=== PATIENT | female | born 1980 | race Caucasian/White ===

== ENCOUNTER 2019-06-26 10:51 | Emergency (ER) | payer MEDICAID, SELFPAY ==
[2019-06-26 11:01] VITALS: BP 132/89; PULSE 105; RESP 17; TEMP 36.8; O2SAT 97; BMI 41.9
--- NOTE | 2019-06-26 11:08 | PC.NURSE ---
Patient c/o sore throat with upper respiratory symptoms of cough and congestion.
--- NOTE | 2019-06-26 11:15 | XR_ITS ---
WS: [id number] PORTABLE CHEST HISTORY: cough/congestion COMPARISON: 07/04/2017 Lungs are clear and well expanded. No pleural effusion or pneumothorax. Cardiac size: Normal. Mediastinum/Aorta: Normal mediastinum. No osseous abnormality seen. XR/XR chest 1V portable [id number] IMPRESSION: Unremarkable portable chest.
--- NOTE | 2019-06-26 11:15 | ED_ITS ---
HPI - URI/Sore Throat General: Chief Complaint: General Medical Stated Complaint: Sick Time Seen by Provider: 06/26/19 11:05 Source: patient Mode of arrival: ambulatory Limitations: no limitations History of Present Illness: HPI Narrative: here for dry cough, sinus pain/pressure/congestion, head congestion, sore throat x 2-3 days; daughter being seen here for similar symptoms; reports everyone in the house has been sick ; her main complaint today is the cough; no fevers MD elicited complaint: cough, sore throat, nasal congestion and sinus pain Onset (ago): day(s) Consistency: constant Severity: mild Description of mucous: clear Able to tolerate fluids by mouth: Yes Exacerbating factors: nothing Relieving factors: nothing Context: sick contacts Associated symptoms: Reports no associated symptoms, nasal congestion and sinus pain; Deny abdominal pain, chills, chest pain, diarrhea, ear or mastoid pain, fever(s), headache(s), nausea or vomiting Review of Systems Const: Denies: fever, chills, body aches, fatigue or night sweats Eyes: Denies: change in vision, blurry vision, photophobia, eye discomfort or eye discharge ENMT: Reports: throat pain, painful swallowing, nasal discharge, nasal congestion and facial/sinus pain; Denies: enlarged tonsils, swelling of lips/tongue, oral sores/lesions, ear pain, ear discharge or post nasal drip Card: Denies: chest pain, palpitations, irregular heart rhythm, lightheadedness, syncope or pre-syncope Resp: Reports: non-productive cough and chest congestion; Denies: shortness of breath, productive cough, wheezing, stridor, pain on inspiration, change in phlegm color or coughing up blood GI: Denies: abdominal pain, nausea, vomiting or diarrhea Musc: Denies: neck pain or back pain Skin/Breast: Denies: rash Neuro: Denies: headache All/Imm: Denies: facial swelling or seasonal allergies PFSH ED PFSH: Statuses (acute, chronic, etc) shown below reflect problem list status as previously entered and may not be historically accurate Social History Smoking and tobacco status: former smoker Physical Exam Const: COMMON NORMALS: no apparent distress, oriented x3, alert and well nourished NUTRITIONAL APPEARANCE: obese HENMT: COMMON NORMALS: normocephalic, head/scalp atraumatic, external ears normal, EAC's normal, TM's normal bilaterally and external nose normal HEAD & SCALP: normal to inspection, normocephalic and atraumatic FACE & SINUS: normal facial exam NOSE: external nose normal EXTERNAL EAR: Yes external ears normal EXTERNAL AUDITORY CANAL: EAC's normal TYMPANIC MEMBRANE: TM's normal bilaterally MOUTH: oral and palatal mucosa normal THROAT: posterior oropharynx normal Eye: COMMON NORMALS: PERRL and EOMs intact bilaterally PUPIL: Yes PERRL Neck/C-Spine: COMMON NORMALS: no lymphadenopathy Resp: COMMON NORMALS: normal respiratory effort and clear to auscultation bilaterally AUSCULTATION: clear to auscultation bilaterally Cardio: COMMON NORMALS: regular rate and regular rhythm RATE: regular rate RHYTHM: regular rhythm Neuro: COMMON NORMALS: oriented x3 SENSORIUM/ORIENTATION: Yes alert Skin: COMMON NORMALS: no rashes or lesions noted GENERAL SKIN EXAM: no rashes or lesions noted Course Vital Signs: Vital signs: Vital Signs Temperature 98.3 F 06/26/19 11:01 Pulse Rate 105 H 06/26/19 11:01 Respiratory Rate 17 06/26/19 11:01 Blood Pressure 132/89 06/26/19 11:01 Pulse Oximetry 97 06/26/19 11:01 MDM - URI/Sore Throat Imaging Data^: CXR: Radiologist's impression: [address] [address] XRay Report Signed Patient: Kin Rodriguez Unit #: [id number] : [id number] Age/Sex: 38 / F ADM Date: 06/26/19 Loc: ER Room/Bed: Attending Dr: Ordering Provider/Ordering MD: Aline Cruz Date of Service: 06/26/19 Procedure(s): XR chest 1V portable [id number] Accession Number(s): [id number] Report Number: [id number] WS: [id number] PORTABLE CHEST HISTORY: cough/congestion COMPARISON: 07/04/2017 Lungs are clear and well expanded. No pleural effusion or pneumothorax. Cardiac size: Normal. Mediastinum/Aorta: Normal mediastinum. No osseous abnormality seen. XR/XR chest 1V portable [id number] IMPRESSION: Unremarkable portable chest. Dictated By: Radha Salinas DO Signed By: Radha Salinas DO Signed Date/Time: 06/26/19 1133 DD/ 1133 Discharge Plan Discharge Patient Disposition: Home, Self-Care Clinical Impression: Viral upper respiratory illness Condition: Stable Prescriptions: No Action venlafaxine 75 mg capsule,extended release 24hr 75 mg PO DAILY RF: 0 venlafaxine 150 mg capsule,extended release 24hr 150 mg PO DAILY RF: 0 pantoprazole 40 mg tablet,delayed release (DR/EC) 40 mg PO DAILY RF: 0 buspirone 10 mg tablet 10 mg PO TID RF: 0 Discharge Orders: Discharge Order (Routine); Ordered 06/26/19 Ordered By: Aline Cruz Referrals: Marla Daily FNP-C [Primary Care Provider] - Discharge Diet: Usual diet Discharge Activity: Increase activity as tolerated Activity Restrictions/Additional Instructions: Follow up with primary care in a week for continued symptoms. Coding Level of Care Code ED Pipeline Superintendent Division for Winifred Garcia
[2019-06-26 13:00] VITALS: BP 140/85; PULSE 90; RESP 14; O2SAT 96
== END 2019-06-26 13:01 | disposition home or self-care (01) ==
PROVIDERS: Emergency Provider Physician Assistant; Family Provider Nurse Practitioner Family; PCP Nurse Practitioner Family
DX: J06.9 Acute upper respiratory infection, unspecified (principal); Z87.891 Personal history of nicotine dependence
CPT/HCPCS: 71045; 99281

== ENCOUNTER 2019-07-15 10:54 | Emergency (ER) | payer MEDICAID, SELFPAY | END 2019-07-15 11:44 | disposition left against medical advice (07) | LOC: ER 14:33 | PROVIDERS: Emergency Provider Physician Assistant; Family Provider Nurse Practitioner Family; PCP Nurse Practitioner Family | DX: Z53.21 Procedure and treatment not carried out due to patient leaving prior to being seen by health care provider (principal) | CPT/HCPCS: 99281 ==

== ENCOUNTER → 2019-11-04 12:10 | Outpatient (BNVA) | payer MEDICAID, SELFPAY | PROVIDERS: Family Provider Nurse Practitioner Family; PCP Nurse Practitioner Family; Referring Provider Family Medicine; Visit Provider Nurse Practitioner | DX: Z11.3 Encounter for screening for infections with a predominantly sexual mode of transmission (principal); E66.01 Morbid (severe) obesity due to excess calories; N89.8 Other specified noninflammatory disorders of vagina; N91.2 Amenorrhea, unspecified; Z72.53 High risk bisexual behavior | CPT/HCPCS: 81025; 86592; 87070; 87077; 87186; 87491; 87591; 87661; 87806 ==

== ENCOUNTER → 2019-12-26 09:22 | Day surgery (SDC) | payer MEDICAID, SELFPAY ==
[2019-12-25 18:58] VITALS: BMI 40.3
== END ==
PROVIDERS: PCP Nurse Practitioner Family; Visit Provider Internal Medicine
DX: Z53.9 Procedure and treatment not carried out, unspecified reason (principal)
CPT/HCPCS: J0171

== ENCOUNTER → 2019-12-31 14:01 | Outpatient (BNVA) | payer MEDICAID, SELFPAY | PROVIDERS: PCP Nurse Practitioner Family; Visit Provider Nurse Practitioner Family | DX: Z11.3 Encounter for screening for infections with a predominantly sexual mode of transmission (principal); R81 Glycosuria; A59.01 Trichomonal vulvovaginitis; A59.9 Trichomoniasis, unspecified; J02.9 Acute pharyngitis, unspecified; Z11.59 Encounter for screening for other viral diseases | CPT/HCPCS: 81003; 87070; 87491; 87591; 87635; 87661; 87880 ==

== ENCOUNTER → 2020-01-20 11:27 | Outpatient (BNVA) | payer MEDICAID, SELFPAY | PROVIDERS: PCP Nurse Practitioner Family; Visit Provider Nurse Practitioner | DX: R34 Anuria and oliguria (principal) | CPT/HCPCS: 81000 ==

== ENCOUNTER 2020-01-23 14:23 | Outpatient (CLI) | payer MEDICAID, SELFPAY ==
[2020-01-23 14:49] LABS: Basophils # 0.1 10^3/uL (0.0-0.1); Basophils % 0.7 %; Eosinophils # 0.1 10^3/uL (0.0-0.8); Eosinophils % 1.4 %; Hematocrit 39.8 % (37.0-47.0); Hemoglobin 12.3 g/dL (11.5-15.3); Lymphocytes # 2.6 10^3/uL (0.8-4.8); Mean Corpuscular HGB Conc 30.9 g/dL (30.0-36.0); Mean Corpuscular Hemoglobin 28.4 pg (28.0-34.0); Mean Corpuscular Volume 91.9 fL (81-99); Monocytes # 0.5 10^3/uL (0.2-0.9); Monocytes % 4.6 %; Neutrophils # 6.72 10^3/uL (1.8-7.7); Neutrophils % 66.6 %; Nucleated Red Blood Cells % 0 %; Platelet Count 238 10^3/cmm (130-400); Red Blood Count 4.33 10^6/uL (4.1-5.3); Red Cell Distribution Width 13.2 % (12.1-15.1); White Blood Count 10.1 10^3/uL (4.0-10.0)
[2020-01-23 14:58] LABS: Alanine Aminotransferase 25 U/L (0-33); Albumin Level 4.2 g/dL (3.5-5.2); Alkaline Phosphatase 84 IU/L (35-105); Aspartate Amino Transferase 21 U/L (0-32); Blood Urea Nitrogen 9 mg/dL (6-20); Calcium 9.3 mg/dL (8.5-10.5); Carbon Dioxide 26 mmol/L (22-29); Chloride 100 mmol/L (98-107); Globulin 2.4 g/dL (1.3-4.6); Glomerular Filtration Rate 79.9 mL/min (90-130); Glucose 171 mg/dL (65-115); Osmolality Calculated 284 mOsm/kg (285-295); Sodium 137 mmol/L (136-145); Total Bilirubin 0.2 mg/dL (0.15-1.2); Total Protein 6.6 g/dL (6.6-8.7)
== END 2020-01-23 14:24 | disposition home or self-care (01) ==
LOC: LAB 14:26
PROVIDERS: PCP Nurse Practitioner Family; Visit Provider Nurse Practitioner
DX: R34 Anuria and oliguria (principal)
CPT/HCPCS: 36415; 80053; 85025

== ENCOUNTER 2020-02-03 11:40 | Outpatient (CLI) | payer MEDICAID, SELFPAY ==
[2020-02-03 12:16] LABS: Estmated Average Glucose 154
== END 2020-02-03 11:41 | disposition home or self-care (01) ==
LOC: LAB 11:45
PROVIDERS: PCP Nurse Practitioner Family; Visit Provider Nurse Practitioner
DX: R73.9 Hyperglycemia, unspecified (principal)
CPT/HCPCS: 83036

== ENCOUNTER → 2020-02-11 08:28 | Outpatient (BNVA) | payer MEDICAID, SELFPAY | PROVIDERS: PCP Nurse Practitioner Family; Visit Provider Internal Medicine | DX: Z01.812 Encounter for preprocedural laboratory examination (principal) | CPT/HCPCS: 87635 ==

== ENCOUNTER 2020-02-13 08:12 | Day surgery (SDC) | payer MEDICAID, SELFPAY ==
[2020-02-11 12:59] VITALS: BMI 45.1
[2020-02-13 08:34] VITALS: BP 128/80; PULSE 80; RESP 18; TEMP 36.2; O2SAT 95
[2020-02-13] MEDS: sodium chloride 0.9% 1,000 ML 30 ML IV (08:42)
--- NOTE | 2020-02-13 08:44 | ANES.PREANE2 ---
Pre-Anesthetic Assessment Pre-Anesthetic Assessment: Height/Weight: Height 1.68 m Weight 127.006 kg Temp Pulse Resp BP Pulse Ox 97.2 F L 80 18 128/80 95 02/13/20 08:34 02/13/20 08:34 02/13/20 08:34 02/13/20 08:34 02/13/20 08:34 Preop Diagnosis: Diarrhea Proposed Procedure: Operation Date: 02/13/20 09:00 Proposed Procedures p EGD 79877 R10.13(Not Applicable) - Florian Bernardo MD Was Beta Tayo taken within 24 hours: N/A Last intake: Intake Last Liquid Date 02/12/20 Last Liquid Time 08:00 Last Solid Date 02/12/20 Last Solid Time 20:00 Last Intake: 00:00 Social: Social History: No alcohol and No tobacco Exam: Pre-Anes Outpt Exam: alert, oriented x 3 and clear to auscultation bilaterally Airway: Submandibular: WNL Cervical ROM: WNL MP: 1 Pulmonary: Pulmonary: Cough (persistant cough for two months) CV/HEM: CV/HEM: None reported : Comments: retaining water, just started lasix Hepatic: Hepatic: None reported GI: GI: GERD (controlled with meds) Metabolic: Metabolic: DM and Morbid obesity Musc/skel: Musc/skel: None reported Neuropsych: Neuropsych: Anxiety and Depression Anesthetic Plan: ASA status: 2 Anesthesia: Anesthesia Evaluation and MAC Meds/Allergies Current Medications: Current Medications Generic Name Dose Route Start Last Admin Trade Name Freq PRN Reason Stop Dose Admin Sodium Chloride 1,000 mls @ 30 ml s/hr 02/13/20 08:15 02/13/20 08:42 Sodium Chloride 0.9% IV 02/14/20 08:14 30 mls/hr .Q24H MARY Administration PFSH Anesthesia PFSH: Medical History (Updated 02/10/20 @ 15:36 by SUSANA Ferrer) Diabetes type 2, uncontrolled Morbid obesity due to excess calories Surgical History Ectopic Lost left tube has right tube Family History Other Cancer Chronic kidney disease (CKD) Clotting disorder Diabetes Hypertension Stroke Suicide Denies family history of CAD (coronary artery disease) Social History (Updated 02/10/20 @ 15:04 by JENNY Welch) Smoking and tobacco status: former smoker Second hand smoke exposure: No Smoking risk assessment/counseling performed?: No Alcohol intake: current Alcohol intake frequency: holidays/special occasions only Desire information about alcohol rehabilitation?: No Counseling given: No Desire information about substance/drug rehabilitation?: No Counseling given: No Adopted: No Caregiver/support person: No Lives independently: Yes Housing: House Marital status: Single Number of children: 3 Highest education level completed: High School Graduate service: No Current occupational status: employed 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
[2020-02-13 08:45] LABS: Glucose Point of Care 160 mg/dL (70-110)
[2020-02-13 09:07] VITALS: PULSE 70; RESP 18; O2SAT 97
[2020-02-13] MEDS: ipratropium 0.5 mg/2.5 mL Neb INHALATION (09:10)
--- NOTE | 2020-02-13 09:18 | W.PM.OPSFHP ---
Same Day Surgery H&P Indication for Procedure/HPI DATE OF PROCEDURE: February 13, 2020 CHIEF COMPLAINT/INDICATIONFOR SURGICAL PROCEDURE: Epigastric pain PREOP DIAGNOSIS: Diarrhea PLANNED PROCEDRUE: Operation Date: 02/13/20 09:00 Proposed Procedures p EGD 21457 R10.13(Not Applicable) - Florian Bernardo MD Medications/Allergies* Allergies/Adverse Reactions Allergy/AdvReac Type Severity Reaction Status Date / Time ketorolac [From Toradol] Allergy ADR-Shakine Verified 02/13/20 08:28 ss sulfamethoxazole Allergy ALGY-Rash Verified 02/13/20 08:28 [From Bactrim] trimethoprim [From Bactrim] Allergy ALGY-Rash Verified 02/13/20 08:28 Current Medications: Generic Name Dose Route Start Last Admin Trade Name Freq PRN Reason Stop Dose Admin Sodium Chloride 1,000 mls @ 30 mls/hr 02/13/20 08:15 02/13/20 08:42 Sodium Chloride 0.9% IV 02/14/20 08:14 30 mls/hr .Q24H MARY Administration Pertinent History/Comorbid Conditions* Medical History (Updated 02/10/20 @ 15:36 by SUSANA Ferrer) Diabetes type 2, uncontrolled Morbid obesity due to excess calories Surgical History (Updated 10/31/19 @ 12:48 by SUSANA Ferrer) Ectopic Lost left tube has right tube Family History (Updated 10/31/19 @ 11:27 by Cheyenne Gardner LPN) Diabetes Clotting disorder Chronic kidney disease (CKD) Suicide Cancer Hypertension Stroke Denies family history of CAD (coronary artery disease) Social History Smoking and tobacco status: former smoker Second hand smoke exposure: No Smoking risk assessment/counseling performed?: No Alcohol intake: current Alcohol intake frequency: holidays/special occasions only Desire information about alcohol rehabilitation?: No Counseling given: No Desire information about substance/drug rehabilitation?: No Counseling given: No Adopted: No Caregiver/support person: No Lives independently: Yes Housing: House Marital status: Single Number of children: 3 Highest education level completed: High School Graduate service: No Current occupational status: employed 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
[2020-02-13 09:30] VITALS: BP 120/65; PULSE 97; RESP 18; TEMP 36.7; O2SAT 96
--- NOTE | 2020-02-13 09:35 | ANE.PACU2 ---
Inpatient post-anesthesia follow up: Airway intact: Yes Vital signs: Temperature 97.2 F Pulse Rate 70 Respiratory Rate 18 Blood Pressure 128/80 Pulse Oximetry 97 Oxygen Delivery Me thod Room Air Oxygen Flow Rate Fraction of Inspir ed Oxygen Hydration adequate: Yes Nausea and vomiting: Yes Pain level: 1 Mental status: Baseline
[2020-02-13 09:45] VITALS: BP 126/80; PULSE 80; RESP 18; O2SAT 97
== END 2020-02-13 09:53 | disposition home or self-care (01) ==
PROVIDERS: PCP Nurse Practitioner; Visit Provider Internal Medicine
PROC: 0DJ08ZZ Inspection of Upper Intestinal Tract, Via Natural or Artificial Opening Endoscopic (ICD-10-PCS; CPT 43235; principal; 2020-02-13 09:00)
DX: R10.13 Epigastric pain (principal); R19.7 Diarrhea, unspecified; K21.0 Gastro-esophageal reflux disease with esophagitis; E66.01 Morbid (severe) obesity due to excess calories; Z68.42 Body mass index [BMI] 45.0-49.9, adult; E11.9 Type 2 diabetes mellitus without complications; Z82.49 Family history of ischemic heart disease and other diseases of the circulatory system; Z83.3 Family history of diabetes mellitus; Z82.3 Family history of stroke; Z87.891 Personal history of nicotine dependence
CPT/HCPCS: 12345; 36416; 43235; 82962; 94640; J2704; J7030

== ENCOUNTER → 2020-03-02 07:45 | Outpatient (BNVA) | payer MEDICAID, SELFPAY | PROVIDERS: PCP Nurse Practitioner; Visit Provider Nurse Practitioner Psychiatric/Mental Health | DX: F33.2 Major depressive disorder, recurrent severe without psychotic features (principal); F41.1 Generalized anxiety disorder; Z87.820 Personal history of traumatic brain injury | CPT/HCPCS: 99214 ==

== ENCOUNTER → 2020-03-30 07:39 | Outpatient (BNVA) | payer MEDICAID, SELFPAY | PROVIDERS: PCP Nurse Practitioner; Visit Provider Nurse Practitioner Psychiatric/Mental Health | DX: F33.2 Major depressive disorder, recurrent severe without psychotic features (principal); F41.1 Generalized anxiety disorder; Z87.820 Personal history of traumatic brain injury | CPT/HCPCS: 99214 ==

== ENCOUNTER 2020-04-13 09:58 | Outpatient (CLI) | payer MEDICAID, SELFPAY ==
--- NOTE | 2020-04-13 10:00 | NM_ITS ---
WS: [id number] NUCLEAR MEDICINE HIDA SCAN CLINICAL INFORMATION: right upper quadrant pain TECHNIQUE: Following intravenous administration of 7.8 mCi of technetium 99m mebrofenin, images of th e abdomen were obtained over the course of 60 minutes. Next, gallbladder ejection fraction was determ ined by obtaining preprandial and one-hour postprandial images of the gallbladder following oral malik stion of Ensure. COMPARISON: None. FINDINGS: Diffuse hepatic uptake at 5 minutes. Gallbladder is visualized by 10 minutes. No evidence of acute ch olecystitis. Normal common bile duct and small bowel activity. No evidence of acute cholecystitis or choledocholithiasis. Normal gallbladder ejection fraction 80% within normal limits. No evidence of chronic cholecystitis. NM/NM hepatobiliary w phar* [id number] IMPRESSION: 1. No evidence of acute or chronic cholecystitis. 2. Normal gallbladder ejection fraction 80% within normal limits.
== END 2020-04-13 09:59 | disposition home or self-care (01) ==
PROVIDERS: PCP Nurse Practitioner; Visit Provider Surgery
DX: R10.13 Epigastric pain (principal)
CPT/HCPCS: 78227; A9537

== ENCOUNTER → 2020-04-15 15:43 | Outpatient (BNVA) | payer MEDICAID, SELFPAY | PROVIDERS: PCP Nurse Practitioner; Visit Provider Nurse Practitioner Women's Health | DX: Z32.01 Encounter for pregnancy test, result positive (principal) | CPT/HCPCS: 84702 ==

== ENCOUNTER → 2020-04-19 13:59 | Outpatient (BNVA) | payer MEDICAID, SELFPAY | PROVIDERS: PCP Nurse Practitioner; Visit Provider Emergency Medicine | DX: R39.9 Unspecified symptoms and signs involving the genitourinary system (principal); Z20.2 Contact with and (suspected) exposure to infections with a predominantly sexual mode of transmission | CPT/HCPCS: 81000; 87086; 87491; 87591; 87661 ==

== ENCOUNTER 2020-04-24 21:18 | Emergency (ER) | payer MEDICAID, SELFPAY ==
[2020-04-24 21:23] VITALS: BP 127/80; PULSE 107; RESP 18; TEMP 36.8; O2SAT 96; BMI 43.5
--- NOTE | 2020-04-24 21:39 | ED_ITS ---
HPI - Abdominal Pain General: Chief Complaint: Abdominal Pain Stated Complaint: RUQ PAIN Time Seen by Provider: 04/24/20 21:39 Source: patient Mode of arrival: ambulatory Limitations: no limitations History of Present Illness: HPI narrative: 39-year-old female comes in with right-sided abdominal pain. Patient states that she has had increased pain and discomfort starting this evening. Patient reports movement makes it worse. Patient does have some nausea and diarrhea. Patient believes that she may have some difficulty with her gallbladder and is awaiting further testing. Patient appears well. Patient appears in mild pain. Associated Symptoms: Reports diarrhea and nausea Related Data: Date of Last Menstrual Period: 02/25/20 Review of Systems General: Reports: 10 or more systems reviewed and unremarkable except in HPI and below GI: Reports: abdominal pain, nausea and diarrhea PFS ED PFSH: Medical History (Updated 04/24/20 @ 23:43 by ELY Bond) Diabetes type 2, uncontrolled Generalized anxiety disorder GERD (gastroesophageal reflux disease) Major depressive disorder, recurrent severe without psychotic features Personal history of traumatic brain injury Surgical History Ectopic Lost left tube has right tube Family History Other Cancer Chronic kidney disease (CKD) Clotting disorder Diabetes Hypertension Stroke Suicide Denies family history of CAD (coronary artery disease) Social History Smoking and tobacco status: former smoker Second hand smoke exposure: No Smoking risk assessment/counseling performed?: No Alcohol intake: current Alcohol intake frequency: holidays/special occasions only Desire information about alcohol rehabilitation?: No Counseling given: No Desire information about substance/drug rehabilitation?: No Counseling given: No Adopted: No Caregiver/support person: No Lives independently: Yes Housing: House Marital status: Single Number of children: 3 Highest education level completed: High School Graduate service: No Current occupational status: employed 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 Pets and animals: Yes History of recent travel: No Current gender identity: Female Female Reproductive History: Date of last menstrual period: 02/25/20 Physical Exam Const: COMMON NORMALS: no acute distress and patient oriented x3 GENERAL APPEARANCE: cooperative HENMT: COMMON NORMALS: normocephalic and Normal external nose present HEAD & SCALP: normal to inspection and normocephalic NOSE: Normal external nose present MOUTH: Normal oral and palatal mucosa present Eye: GENERAL EYE: appearance normal, both eyes and all related structures Neck/C-Spine: COMMON NORMALS: full ROM Chest: COMMONS NORMALS: normal inspection of the chest Resp: COMMON NORMALS: normal respiratory effort EFFORT & INSPECTION: Yes able to speak in complete sentences Cardio: COMMON NORMALS: regular rate and regular rhythm RATE: regular rate RHYTHM: regular rhythm GI: COMMON NORMALS: Soft to palpation PALPATION: Yes Soft to palpation and Yes Tenderness to palpation present (GI) (Right flank muscle tenderness.) : COMMON NORMALS: Yes no CVA tenderness BLADDER/KIDNEY EXAM: Yes no CVA tenderness Back/Pelvis: COMMON NORMALS: no CVA tenderness and thoracic and lumbar spine normal to inspection Extremity: COMMON NORMALS: normal to inspection Neuro: COMMON NORMALS: patient oriented x3 and moves all extremities Psych: COMMON NORMALS: mental status grossly normal and cooperative Skin: COMMON NORMALS: no rashes or lesions noted GENERAL SKIN EXAM: no rashes or lesions noted Course Vital Signs: Vital signs: Vital Signs Temperature 98.2 F 04/24/20 21:23 Pulse Rate 102 H 04/24/20 23:00 Respiratory Rate 22 H 04/24/20 23:00 Blood Pressure 124/80 04/24/20 23:00 Pulse Oximetry 93 04/24/20 23:00 MDM - Abdominal Pain MDM Narrative: Medical decision making narrative: Patient came in today for complaints of right flank pain. On exam patient has muscle tenderness in the right paraspinous flank area. Abdomen soft nontender. Bowel sounds are present. Differential diagnosis includes but not limited to renal calculi, cholecystitis, pancreatitis, myofascial strain. Laboratory values were remarkable for 14,000 white count. Liver enzymes are normal. CT scan of the abdomen pelvis noted no significant abnormality. Patient has no signs of acute abdomen. Reviewed exam with patient recommended follow-up with primary care. For further evaluation. Saeed need to return to the ER for high fever or blood in vomit or stool. Patient reported understanding. Lab Data: Labs: Lab Results 04/24/20 04/24/20 04/24/20 Range/Units 21:45 21:45 21:45 WBC 14.5 H (4.0-10.0) 10^3/ uL RBC 4.68 (4.1-5.3) 10^6/u L Hgb 13.4 (11.5-15.3) g/dL Hct 41.6 (37.0-47.0) % MCV 88.9 (81-99) fL MCH 28.6 (28.0-34.0) pg MCHC 32.2 (30.0-36.0) g/dL RDW 13.0 (12.1-15.1) % Plt Count 280 (130-400) 10^3/c mm MPV 11.5 H (7.4-10.4) fL Neut % (Auto) 74.4 % Lymph % (Auto) 19.2 % Culberson % (Auto) 3.5 % Eos % (Auto) 1.0 % Baso % (Auto) 0.7 % Neut # (Auto) 10.78 H (1.8-7.7) 10^3/u L Lymph # (Auto) 2.8 (0.8-4.8) 10^3/u L Culberson # (Auto) 0.5 (0.2-0.9) 10^3/u L Eos # (Auto) 0.2 (0.0-0.8) 10^3/u L Baso # (Auto) 0.1 (0.0-0.1) 10^3/u L Nucleated RBC % (a uto) 0 % Nucleated RBCs # 0.0 /100WBC Sodium 138 (136-145) mmol/L Potassium 3.6 (3.5-5.1) mmol/L Chloride 99 (98-107) mmol/L Carbon Dioxide 26 (22-29) mmol/L Anion Gap 16.6 (5-19) BUN 9 (6-20) mg/dL Creatinine 0.8 (0.5-0.9) mg/dL GFR Calculation 79.9 L (90-130) mL/min Glucose 209 H (65-115) mg/dL Calculated Osmolal ity 291 (285-295) mOsm/k g Calcium 9.4 (8.5-10.5) mg/dL Total Bilirubin 0.3 (0.15-1.2) mg/dL AST 19 (0-32) U/L ALT 21 (0-33) U/L Alkaline Phosphata se 92 (35-105) IU/L Total Protein 7.1 (6.6-8.7) g/dL Albumin 4.4 (3.5-5.2) g/dL Globulin 2.7 (1.3-4.6) g/dL Lipase 38 (13-60) U/L HCG, Qual Negative (Negative) Urine Color (Yellow) Urine Appearance (CLEAR) Urine pH (5-7) Ur Specific Gravit y (1.005-1.030) Urine Protein (Negative) Urine Glucose (UA) (Normal) Urine Ketones (Negative) Urine Blood (Negative) Urine Nitrate (Negative) Urine Bilirubin (Negative) Urine Urobilinogen (Negative) mg/dL Ur Leukocyte Johanny ase (Negative) Urine RBC (0-2) /hpf Urine WBC (0-5) /hpf Ur Squamous Epith Cells (0-5) /hpf Amorphous Sediment Urine Bacteria (NONE) /hpf 04/24/20 Range/Units 22:56 WBC (4.0-10.0) 10^3/ uL RBC (4.1-5.3) 10^6/u L Hgb (11.5-15.3) g/dL Hct (37.0-47.0) % MCV (81-99) fL MCH (28.0-34.0) pg MCHC (30.0-36.0) g/dL RDW (12.1-15.1) % Plt Count (130-400) 10^3/c mm MPV (7.4-10.4) fL Neut % (Auto) % Lymph % (Auto) % Culberson % (Auto) % Eos % (Auto) % Baso % (Auto) % Neut # (Auto) (1.8-7.7) 10^3/u L Lymph # (Auto) (0.8-4.8) 10^3/u L Culberson # (Auto) (0.2-0.9) 10^3/u L Eos # (Auto) (0.0-0.8) 10^3/u L Baso # (Auto) (0.0-0.1) 10^3/u L Nucleated RBC % (a uto) % Nucleated RBCs # /100WBC Sodium (136-145) mmol/L Potassium (3.5-5.1) mmol/L Chloride (98-107) mmol/L Carbon Dioxide (22-29) mmol/L Anion Gap (5-19) BUN (6-20) mg/dL Creatinine (0.5-0.9) mg/dL GFR Calculation (90-130) mL/min Glucose (65-115) mg/dL Calculated Osmolal ity (285-295) mOsm/k g Calcium (8.5-10.5) mg/dL Total Bilirubin (0.15-1.2) mg/dL AST (0-32) U/L ALT (0-33) U/L Alkaline Phosphata se (35-105) IU/L Total Protein (6.6-8.7) g/dL Albumin (3.5-5.2) g/dL Globulin (1.3-4.6) g/dL Lipase (13-60) U/L HCG, Qual (Negative) Urine Color Yellow (Yellow) Urine Appearance Sl hazy (CLEAR) Urine pH 5 (5-7) Ur Specific Gravit y 1.010 (1.005-1.030) Urine Protein Neg (Negative) Urine Glucose (UA) Norm (Normal) Urine Ketones Negative (Negative) Urine Blood Neg (Negative) Urine Nitrate Negative (Negative) Urine Bilirubin Neg (Negative) Urine Urobilinogen Norm (Negative) mg/dL Ur Leukocyte Johanny ase Negative (Negative) Urine RBC 0-4 H (0-2) /hpf Urine WBC 0-4 H (0-5) /hpf Ur Squamous Epith Cells 55-80 H (0-5) /hpf Amorphous Sediment Not Reportable Urine Bacteria Trace (NONE) /hpf Discharge Plan Discharge Patient Disposition: Home Clinical Impression: Abdominal pain Qualifiers: Abdominal location: unspecified location Qualified Code(s): R10.9 - Unspecified abdominal pain Condition: Stable Prescriptions: No Action (DME) pen needle, diabetic 33 gauge x 5/32 needle See Rx Instructions .ROUTE .MEDSUPPLY Qty: 100 RF: 0 Victoza 2-Vincenzo 0.6 mg/0.1 mL (18 mg/3 mL) pen injector 0.6 mg SUBCUT DAILY Qty: 6 RF: 0 furosemide [Lasix] 20 mg tablet 20 mg PO DAILY Qty: 30 RF: 2 potassium citrate 10 mEq (1,080 mg) tablet extended release 10 meq PO DAILY Qty: 30 RF: 2 pantoprazole 40 mg tablet,delayed release (DR/EC) 40 mg PO DAILY Qty: 90 RF: 3 aripiprazole [Abilify] 2 mg tablet 2 mg PO DAILY Qty: 30 RF: 1 ampicillin 500 mg capsule 500 mg PO TID Qty: 21 RF: 0 Discharge Orders: Discharge Order (Routine); Ordered 04/24/20 Ordered By: Bill Iverson Referrals: Lala Guillen, [employer]TO[employer] LABORATORY MANAGER-C [Primary Care Provider] - Discharge Diet: Usual diet Discharge Activity: Increase activity as tolerated Patient Instructions: Abdominal Pain (ED) Activity Restrictions/Additional Instructions: Home and rest. Drink plenty of fluids. Follow-up with primary care for further treatment and evaluation. Return to the emergency department for high fever, blood in vomit or stool. Coding Level of Care Code ED Hydrologic Modeler for Winifred Garcia Exam Comprehensive
[2020-04-24] MEDS: ondansetron 2 mg/ML SDV 2 mL 4 MG IVP (21:56)
[2020-04-24] MEDS: sodium chloride 0.9% 500 ML 999 ML IV (22:00)
[2020-04-24 22:01] VITALS: BP 145/85; PULSE 107; RESP 16; O2SAT 95
[2020-04-24 22:03] LABS: Basophils # 0.1 10^3/uL (0.0-0.1); Basophils % 0.7 %; Eosinophils # 0.2 10^3/uL (0.0-0.8); Hematocrit 41.6 % (37.0-47.0); Hemoglobin 13.4 g/dL (11.5-15.3); Lymphocytes # 2.8 10^3/uL (0.8-4.8); Lymphocytes % 19.2 %; Mean Corpuscular HGB Conc 32.2 g/dL (30.0-36.0); Mean Corpuscular Hemoglobin 28.6 pg (28.0-34.0); Mean Corpuscular Volume 88.9 fL (81-99); Mean Platelet Volume 11.5 fL (7.4-10.4); Monocytes # 0.5 10^3/uL (0.2-0.9); Monocytes % 3.5 %; Neutrophils # 10.78 10^3/uL (1.8-7.7); Neutrophils % 74.4 %; Nucleated Red Blood Cells % 0 %; Platelet Count 280 10^3/cmm (130-400); Red Blood Count 4.68 10^6/uL (4.1-5.3); White Blood Count 14.5 10^3/uL (4.0-10.0)
--- NOTE | 2020-04-24 22:18 | CTR_ITS ---
PROCEDURE INFORMATION: Exam: CT Abdomen And Pelvis With Contrast Exam date and time: 04/24/2020 10:40 PM Age: 39 years old Clinical indication: Abdominal pain; Additional info: Right abd pain, diarrhea TECHNIQUE: Imaging protocol: Computed tomography of the abdomen and pelvis with intravenous contrast. Radiation optimization: All CT scans at this facility use at least one of these dose optimization techniques: automated exposure control; mA and/or kV adjustment per patient size (includes targeted exams where dose is matched to clinical indication); or iterative reconstruction. Contrast material: OMNI 300; Contrast volume: 95 ml; Contrast route: INTRAVENOUS (IV); COMPARISON: CT abdomen pelvis w con* [id number] 04/13/2019 8:17 PM RADIATION DOSE METRICS: Total DLP (mGy-cm): 1972.46 FINDINGS: Lungs: The lung bases are clear. Mediastinal space: Small, 2 cm hiatal hernia. Liver: There is fatty infiltration of the liver. Gallbladder and bile ducts: The gallbladder is partially contracted. No visible gallstones by CT. Ultrasound would be more sensitive for detecting gallstones, if clinically needed. No biliary tree dilation. Pancreas: Unremarkable. Spleen: Unremarkable. Adrenal glands: Unremarkable. Kidneys and ureters: Unremarkable. Stomach and bowel: There are no CT findings to strongly suggest diverticulitis or colitis. Negative CT does not entirely exclude colitis, so follow-up may be helpful, as clinically directed. Appendix: The appendix is identified, and there are no suspicious findings for appendicitis. No pericecal inflammatory changes are seen. Small calcification in the distal appendix is unchanged, possibly a small appendicolith. Intraperitoneal space: No free air, ascites, or bowel distention. Vasculature: No evidence for abdominal aortic aneurysm. Lymph nodes: No retroperitoneal adenopathy. Urinary bladder: Unremarkable as visualized. Reproductive: No definite ovarian/adnexal cyst or mass by CT. Bones/joints: Moderate disc space narrowing at L5-S1, slightly increased in the interval. Soft tissues: Very small umbilical hernia, containing only fat. CT/CT abdomen pelvis w con* [id number] IMPRESSION: 1. No evidence for appendicitis. 2. No visible gallstones by CT. 3. No free air or bowel distention. 4. Small hiatal hernia. 5. Other findings discussed above. Radiation Dose CTDIVOL = (mGy): DLP = 1973.46 (mGy-cm)
[2020-04-24 22:24] LABS: Alanine Aminotransferase 21 U/L (0-33); Albumin Level 4.4 g/dL (3.5-5.2); Alkaline Phosphatase 92 IU/L (35-105); Anion Gap 16.6 (5-19); Aspartate Amino Transferase 19 U/L (0-32); Blood Urea Nitrogen 9 mg/dL (6-20); Calcium 9.4 mg/dL (8.5-10.5); Carbon Dioxide 26 mmol/L (22-29); Chloride 99 mmol/L (98-107); Globulin 2.7 g/dL (1.3-4.6); Glomerular Filtration Rate 79.9 mL/min (90-130); Glucose 209 mg/dL (65-115); Lipase 38 U/L (13-60); Osmolality Calculated 291 mOsm/kg (285-295); Potassium 3.6 mmol/L (3.5-5.1); Sodium 138 mmol/L (136-145); Total Bilirubin 0.3 mg/dL (0.15-1.2); Total Protein 7.1 g/dL (6.6-8.7)
[2020-04-24 22:27] LABS: HCG, Serum Qual Negative (Negative)
[2020-04-24] MEDS: iohexol 300 mg/mL 100 mL Btl IV (22:41)
[2020-04-24 23:00] VITALS: BP 124/80; PULSE 102; RESP 22; O2SAT 93
[2020-04-24 23:17] LABS: Bilirubin Urine Neg (Negative); Blood Urine Neg (Negative); Glucose Urine UA Norm (Normal); Ketones Urine Negative (Negative); Leukocyte Esterase Urine Negative (Negative); Nitrate Urine Negative (Negative); Protein Urine Neg (Negative); Urine Appearance SL Hazy (CLEAR); Urine Color Yellow (Yellow); Urobilinogen Urine Norm (Negative); pH Urine 5 (5-7)
[2020-04-24 23:18] LABS: Add Urine Microscopic? YES
[2020-04-24 23:21] LABS: Add Urine Culture? No; Bacteria Urine TRACE /hpf; RBC Urine 0-4 /hpf (0-2); Squamous Epithelial Cell Urine 55-80 /hpf (0-5); WBC Urine 0-4 /hpf (0-5)
[2020-04-24 23:49] VITALS: BP 116/74; PULSE 101; RESP 16; O2SAT 93
== END 2020-04-24 23:50 | disposition home or self-care (01) ==
PROVIDERS: Emergency Provider Nurse Practitioner Family; PCP Nurse Practitioner
DX: R10.9 Unspecified abdominal pain (principal); E11.9 Type 2 diabetes mellitus without complications; Z87.891 Personal history of nicotine dependence
CPT/HCPCS: 12345; 74177; 80053; 81001; 83690; 84703; 85025; 96374; 96375; 99283; J0131; J2405; J7040; Q9967

== ENCOUNTER → 2020-05-11 07:40 | Outpatient (BNVA) | payer MEDICAID, SELFPAY | PROVIDERS: PCP Nurse Practitioner; Visit Provider Nurse Practitioner Psychiatric/Mental Health | DX: F33.2 Major depressive disorder, recurrent severe without psychotic features (principal); F41.1 Generalized anxiety disorder; Z87.820 Personal history of traumatic brain injury | CPT/HCPCS: 99214 ==

== ENCOUNTER → 2020-08-05 08:10 | Outpatient (BNVA) | payer MEDICAID, SELFPAY | PROVIDERS: PCP Nurse Practitioner; Visit Provider Nurse Practitioner Psychiatric/Mental Health | DX: F41.1 Generalized anxiety disorder (principal); F33.2 Major depressive disorder, recurrent severe without psychotic features; F31.81 Bipolar II disorder; Z87.820 Personal history of traumatic brain injury; Z03.89 Encounter for observation for other suspected diseases and conditions ruled out | CPT/HCPCS: 99214 ==

== ENCOUNTER → 2020-08-16 14:34 | Outpatient (BNVA) | payer MEDICAID, SELFPAY | PROVIDERS: PCP Nurse Practitioner; Visit Provider Nurse Practitioner Psychiatric/Mental Health | DX: Z79.899 Other long term (current) drug therapy (principal); Z03.89 Encounter for observation for other suspected diseases and conditions ruled out | CPT/HCPCS: 80053; 84439; 84443; 84481 ==

== ENCOUNTER → 2020-08-17 08:12 | Outpatient (BNVA) | payer MEDICAID, SELFPAY | PROVIDERS: PCP Nurse Practitioner; Visit Provider Nurse Practitioner Psychiatric/Mental Health | DX: F33.2 Major depressive disorder, recurrent severe without psychotic features (principal); F41.1 Generalized anxiety disorder; Z03.89 Encounter for observation for other suspected diseases and conditions ruled out; Z79.899 Other long term (current) drug therapy; Z87.820 Personal history of traumatic brain injury; F31.81 Bipolar II disorder | CPT/HCPCS: 99214 ==

== ENCOUNTER → 2021-01-10 07:09 | Outpatient (BNVA) | payer MEDICAID, SELFPAY | PROVIDERS: PCP Nurse Practitioner; Visit Provider Nurse Practitioner Psychiatric/Mental Health | DX: F31.81 Bipolar II disorder (principal); F41.1 Generalized anxiety disorder; Z87.820 Personal history of traumatic brain injury; Z79.899 Other long term (current) drug therapy | CPT/HCPCS: 99214 ==

== ENCOUNTER → 2021-01-31 07:12 | Outpatient (BNVA) | payer MEDICAID, SELFPAY | PROVIDERS: PCP Nurse Practitioner; Visit Provider Nurse Practitioner Psychiatric/Mental Health | DX: F31.81 Bipolar II disorder (principal); F41.1 Generalized anxiety disorder; Z87.820 Personal history of traumatic brain injury; Z79.899 Other long term (current) drug therapy | CPT/HCPCS: 99214 ==

== ENCOUNTER 2021-02-19 20:34 | Observation (INO) | payer MEDICAID, SELFPAY ==
[2021-02-19] VITALS (13 sets, daily range): BP systolic 115–142; BP diastolic 67–91; PULSE 82–90; RESP 16–18; TEMP 36.2; O2SAT 96–100; BMI 45.1
--- NOTE | 2021-02-19 21:28 | XRR_ITS ---
PROCEDURE INFORMATION: Exam: XR Chest Exam date and time: 02/19/2021 9:28 PM Age: 40 years old Clinical indication: Sternal or substernal pain; Additional info: Chest pain TECHNIQUE: Imaging protocol: XR of the chest. Views: 1 view. COMPARISON: CR XR chest 1V portable [id number] 06/26/2019 11:26 AM FINDINGS: Lungs: Unremarkable. No consolidation. Pleural spaces: Unremarkable. No pleural effusion. No pneumothorax. Heart/Mediastinum: Unremarkable. No cardiomegaly. Bones/joints: Unremarkable. XR/XR chest 1V portable [id number] IMPRESSION: No acute findings.
--- NOTE | 2021-02-19 21:29 | ECG_ITS ---
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 Measurements Intervals [place] Rate: 80 P: 32 MA: 147 QRS: 54 QRSD: 97 T: 16 QT: 395 QTc: 456 Interpretive Statements SINUS RHYTHM ST DEVIATION AND MODERATE T-WAVE ABNORMALITY, CONSIDER ANTERIOR ISCHEMIA [-0.1+ mV T-WAVE IN V3/V4] No previous ECG available for comparison Electronically Signed On 02-21-2021 19:14:38 CDT by Grace Morris M.D. [id number]
[2021-02-19 21:34] LABS: Basophils # 0.1 10^3/uL (0.0-0.1); Basophils % 0.8 %; Eosinophils # 0.2 10^3/uL (0.0-0.8); Eosinophils % 1.9 %; Hematocrit 42.8 % (37.0-47.0); Hemoglobin 13.2 g/dL (11.5-15.3); Lymphocytes # 2.9 10^3/uL (0.8-4.8); Lymphocytes % 30.1 %; Mean Corpuscular HGB Conc 30.8 g/dL (30.0-36.0); Mean Corpuscular Hemoglobin 29.1 pg (28.0-34.0); Mean Corpuscular Volume 94.5 fl (81-99); Monocytes # 0.5 10^3/uL (0.2-0.9); Monocytes % 4.7 %; Neutrophils % 61.6 %; Nucleated Red Blood Cells % 0 %; Platelet Count 259 10^3/cmm (130-400); Red Blood Count 4.53 10^6/uL (4.1-5.3); Red Cell Distribution Width 13.1 % (12.1-15.1); White Blood Count 9.6 10^3/uL (4.0-10.0)
[2021-02-19] MEDS: aspirin 325 mg Tablet PO (21:42)
[2021-02-19 21:48] LABS: Troponin(5th) Baseline 6 ng/L (0-10)
--- NOTE | 2021-02-19 21:48 | CTR_ITS ---
PROCEDURE INFORMATION: Exam: CTA Chest With Contrast Exam date and time: 02/19/2021 9:48 PM Age: 40 years old Clinical indication: Pain; Left-sided; Patient HX: C/O L sided cp w cough x a couple of days; Additional info: Rule out pe TECHNIQUE: Imaging protocol: Computed tomographic angiography of the chest with contrast. 3D rendering (Not supervised by radiologist): MIP and/or 3D reconstructed images were created by the technologist. Radiation optimization: All CT scans at this facility use at least one of these dose optimization techniques: automated exposure control; mA and/or kV adjustment per patient size (includes targeted exams where dose is matched to clinical indication); or iterative reconstruction. Contrast material: OMNI 350; Contrast volume: 144 ml; Contrast route: INTRAVENOUS (IV); COMPARISON: CR (CHEST, ) 02/19/2021 9:49 PM RADIATION DOSE METRICS: Total DLP (mGy-cm): 1111.92 FINDINGS: Pulmonary arteries: Normal. No pulmonary emboli. Aorta: Unremarkable. No aortic aneurysm. No aortic dissection. Lungs: Unremarkable. No consolidation. No masses. Pleural spaces: Unremarkable. No pneumothorax. No pleural effusion. Heart: Unremarkable. No cardiomegaly. No pericardial effusion. Mediastinal space: Mild hiatal hernia. No thoracic esophageal wall thickening. Lymph nodes: Unremarkable. No enlarged lymph nodes. Bones/joints: Unremarkable. No acute fracture. Soft tissues: Unremarkable. CT/CT angio chest PE protcl [id number] IMPRESSION: Negative CT angiogram of the chest. No acute abnormalities are identified. Radiation Dose CTDIVOL = (mGy): DLP = 1111.92 (mGy-cm)
[2021-02-19 21:50] LABS: Blood Urea Nitrogen 10 mg/dL (6-20); Calcium 8.7 mg/dL (8.5-10.5); Carbon Dioxide 25 mmol/L (22-29); Chloride 102 mmol/L (98-107); Glomerular Filtration Rate 92.7 mL/min (90-130); Glucose 166 mg/dL (65-115); Osmolality Calculated 291 mOsm/kg (285-295); Sodium 139 mmol/L (136-145)
[2021-02-19 21:57] LABS: Anion Gap 16.4 (5-19); Potassium 4.4 mmol/L (3.5-5.1)
--- NOTE | 2021-02-19 21:58 | W.ED.GENADLT ---
HPI - General Adult General: Chief complaint: Chest Pain Stated complaint: sharp pain in her heart Time Seen by Provider: 02/19/21 21:25 History of Present Illness: HPI narrative: CC: Chest Pain HPI: This is a [40] yo patient hx of HTN, DM presenting to the ED w/ acute onset intermittent sharp substernal chest pain lasting for seconds x 1 week. Denies any exertional chest pain. Pain is not tearing in nature and does not radiate to the back. Endorse nausea but has no associated with vomiting or decreased PO intake. Denies any recent sympathomimetic drug use. Patient denies any cough. Denies palpitations, syncope symptoms. Pain not positional. Norecent immobility, surgery, unilateral leg swelling, or prior PE. Patient denies any orthopnea, paroxysmal nocturnal dyspnea, weight gain, or increased leg swellings. Onset: 1 week ago ago Duration: ongoing for the last 7 days Location: home Severity: moderate Review of Systems Narrative: Constitutional: No fever, no chills. HEENT: No vision changes, no sore throat. CV: +chest pain, no palpitations. PULM: No cough, no dyspnea. GI: No abdominal pain, no N/V/D. : No dysuria, no frequency, no hematuria. MSKEL: No arthralgias, no edema. SKIN: No new rashes, no lesions. NEURO: No headache, no focal weakness. HEME: No easy bleeding or bruising. PSYCH: No change in mood or affect. [facility] ED PFSH: Medical History Bipolar II disorder COVID-30 Jul 2020 Diabetes type 2, uncontrolled Generalized anxiety disorder GERD (gastroesophageal reflux disease) Personal history of traumatic brain injury Surgical History Ectopic Lost left tube has right tube Family History Other Cancer Chronic kidney disease (CKD) Clotting disorder Diabetes Hypertension Stroke Suicide Denies family history of CAD (coronary artery disease) Social History Smoking and tobacco status: former smoker Second hand smoke exposure: No Smoking risk assessment/counseling performed?: No Alcohol intake: current Alcohol intake frequency: holidays/special occasions only Desire information about alcohol rehabilitation?: No Counseling given: No Desire information about substance/drug rehabilitation?: No Counseling given: No Adopted: No Caregiver/support person: No Lives independently: Yes Housing: House Marital status: Single Number of children: 3 Highest education level completed: High School Graduate service: No Current occupational status: employed 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 2+ peripheral pulses in UEs ABDOMEN: Soft, nontender, nondistended, BS x4, no rigidity, no guarding, no rebound EXTREMITY: Normal ROM, no pitting edema, no calf tenderness to palpation SKIN: No rash or erythema NEURO: Awake and alert. No focal motor deficits. PSYCH: Normal mood and affect. Course Vital Signs: Vital signs: Vital Signs Temperature 98.9 F 02/21/21 18:03 Pulse Rate 78 02/21/21 18:03 Respiratory Rate 12 02/21/21 18:03 Blood Pressure 133/95 02/21/21 18:03 Pulse Oximetry 95 02/21/21 18:03 MDM - General Adult MDM Narrative: Medical decision making narrative: [40]yo patient w/ hx of HTN, DM presenting to the ED With acute sharp substernal chest pain X 1 week. Currently chest pain free. Given History And Exam today I have moderate to high suspicion for ACS/UA/NSTEMI. Today, I have NO suspicion for pneumothorax, pneumonia, pulmonary embolus, tamponade, aortic dissection or other emergent problem as a cause for this presentation. ECG did not show any signs of acute STEMI. Workup: ECG, CXR, CBC, BMP, Troponin, dimer Intervention: ASA 325mg, nitro paste Finding: NSR RR of 9, CO/QRS/QT wnl, T wave inversions in V1-V3, tall R wave in V1, no ST changes, no ectopy Troponin: Negative x 1 Other Labs unremarkable for emergent problems. CXR: Without PTX, PNA, or widened mediastinum CTA negative for any PE On reassessment, at 11:26 patient has intermittent chest pain. S/p ASA and nitro paste. Give n concerns of [facility] in the setting T wave inversions in V1-V3 (age > 30 unlikely to be persistent juvenile T wave inversions), patient is placed on plavix 300mg and heparin drip. No contraindications for anticoagulation. Cardiology team will evaluate patient in the AM to decide cath vs stress test. Disposition: Admission Lab Data: Labs: Lab Results 02/19/21 02/19/21 02/19/21 Range/Units 21:14 21:14 21:14 WBC 9.6 (4.0-10.0) 10^3/ uL RBC 4.53 (4.1-5.3) 10^6/u L Hgb 13.2 (11.5-15.3) g/dL Hct 42.8 (37.0-47.0) % MCV 94.5 (81-99) fl MCH 29.1 (28.0-34.0) pg MCHC 30.8 (30.0-36.0) g/dL RDW 13.1 (12.1-15.1) % Plt Count 259 (130-400) 10^3/c mm MPV 11.0 H (7.4-10.4) fL Neut % (Auto) 61.6 % Lymph % (Auto) 30.1 % [place] % (Auto) 4.7 % Eos % (Auto) 1.9 % Baso % (Auto) 0.8 % Neut # (Auto) 5.90 (1.8-7.7) 10^3/u L Lymph # (Auto) 2.9 (0.8-4.8) 10^3/u L [place] # (Auto) 0.5 (0.2-0.9) 10^3/u L Eos # (Auto) 0.2 (0.0-0.8) 10^3/u L Baso # (Auto) 0.1 (0.0-0.1) 10^3/u L Nucleated RBC % (a uto) 0 % Nucleated RBCs # 0.0 /100WBC PT (12.1-14.9) SECO NDS INR (0.8-1.2) APTT (23.9-36.7) SECO NDS D-Dimer (0-0.59) ug/mIFE U Sodium 139 (136-145) mmol/L Potassium 4.4 (3.5-5.1) mmol/L Chloride 102 (98-107) mmol/L Carbon Dioxide 25 (22-29) mmol/L Anion Gap 16.4 (5-19) BUN 10 (6-20) mg/dL Creatinine 0.7 (0.5-0.9) mg/dL GFR Calculation 92.7 (90-130) mL/min Glucose 166 H (65-115) mg/dL Calculated Osmolal ity 291 (285-295) mOsm/k g Calcium 8.7 (8.5-10.5) mg/dL Troponin T Baselin e 6 (0-10) ng/L Troponin T 120 Min [place] (0-10) ng/L Delta Troponin T (0-10) ABS# TSH (0.27-4.20) uIU/ mL HCG, Qual (Negative) 02/19/21 02/19/21 02/19/21 Range/Units 21:14 21:14 23:50 WBC (4.0-10.0) 10^3/ uL RBC (4.1-5.3) 10^6/u L Hgb (11.5-15.3) g/dL Hct (37.0-47.0) % MCV (81-99) fl MCH (28.0-34.0) pg MCHC (30.0-36.0) g/dL RDW (12.1-15.1) % Plt Count (130-400) 10^3/c mm MPV (7.4-10.4) fL Neut % (Auto) % Lymph % (Auto) % [place] % (Auto) % Eos % (Auto) % Baso % (Auto) % Neut # (Auto) (1.8-7.7) 10^3/u L Lymph # (Auto) (0.8-4.8) 10^3/u L [place] # (Auto) (0.2-0.9) 10^3/u L Eos # (Auto) (0.0-0.8) 10^3/u L Baso # (Auto) (0.0-0.1) 10^3/u L Nucleated RBC % (a uto) % Nucleated RBCs # /100WBC PT (12.1-14.9) SECO NDS INR (0.8-1.2) APTT (23.9-36.7) SECO NDS D-Dimer 0.89 H (0-0.59) ug/mIFE U Sodium (136-145) mmol/L Potassium (3.5-5.1) mmol/L Chloride (98-107) mmol/L Carbon Dioxide (22-29) mmol/L Anion Gap (5-19) BUN (6-20) mg/dL Creatinine (0.5-0.9) mg/dL GFR Calculation (90-130) mL/min Glucose (65-115) mg/dL Calculated Osmolal ity (285-295) mOsm/k g Calcium (8.5-10.5) mg/dL Troponin T Baselin e (0-10) ng/L Troponin T 120 Min [place] 6.00 (0-10) ng/L Delta Troponin T 0 (0-10) ABS# TSH (0.27-4.20) uIU/ mL HCG, Qual Negative (Negative) 02/19/21 02/19/21 Range/Units 23:50 23:50 WBC (4.0-10.0) 10^3/ uL RBC (4.1-5.3) 10^6/u L Hgb (11.5-15.3) g/dL Hct (37.0-47.0) % MCV (81-99) fl MCH (28.0-34.0) pg MCHC (30.0-36.0) g/dL RDW (12.1-15.1) % Plt Count (130-400) 10^3/c mm MPV (7.4-10.4) fL Neut % (Auto) % Lymph % (Auto) % [place] % (Auto) % Eos % (Auto) % Baso % (Auto) % Neut # (Auto) (1.8-7.7) 10^3/u L Lymph # (Auto) (0.8-4.8) 10^3/u L [place] # (Auto) (0.2-0.9) 10^3/u L Eos # (Auto) (0.0-0.8) 10^3/u L Baso # (Auto) (0.0-0.1) 10^3/u L Nucleated RBC % (a uto) % Nucleated RBCs # /100WBC PT 14.40 (12.1-14.9) SECO NDS INR 1.08 (0.8-1.2) APTT 26.0 (23.9-36.7) SECO NDS D-Dimer (0-0.59) ug/mIFE U Sodium (136-145) mmol/L Potassium (3.5-5.1) mmol/L Chloride (98-107) mmol/L Carbon Dioxide (22-29) mmol/L Anion Gap (5-19) BUN (6-20) mg/dL Creatinine (0.5-0.9) mg/dL GFR Calculation (90-130) mL/min Glucose (65-115) mg/dL Calculated Osmolal ity (285-295) mOsm/k g Calcium (8.5-10.5) mg/dL Troponin T Baselin e (0-10) ng/L Troponin T 120 Min [place] (0-10) ng/L Delta Troponin T (0-10) ABS# TSH 5.01 H (0.27-4.20) uIU/ mL HCG, Qual (Negative) Imaging Data^: Other Imaging: Radiologist's impression: [address] [id number] Scan ReportSigned Patient: Kin Rodriguez #: [id number]: 1980Acct#:[id number]/Sex: 40 / FADM Date: 02/19/21Loc: ERRoom/Bed:Attending Dr: Ordering Provider/Ordering MD: Neva Monteiro MD Date of Service: 02/19/21 Procedure(s): CT angio chest PE protcl [id number] Accession Number(s): [id number] Report Number: [id number] PROCEDURE INFORMATION: Exam: CTA Chest With Contrast Exam date and time: 02/19/2021 9:48 PM Age: 40 years old Clinical indication: Pain; Left-sided; Patient HX: C/O L sided cp w cough x a couple of days; Additional info: Rule out pe TECHNIQUE: Imaging protocol: Computed tomographic angiography of the chest with contrast. 3D rendering (Not supervised by radiologist): MIP and/or 3D reconstructed images were created by the technologist. Radiation optimization: All CT scans at this facility use at least one of these dose optimization techniques: automated exposure control; mA and/or kV adjustment per patient size (includes targeted exams where dose is matched to clinical indication); or iterative reconstruction. Contrast material: OMNI 350; Contrast volume: 144 ml; Contrast route: INTRAVENOUS (IV); COMPARISON: CR (CHEST, ) 02/19/2021 9:49 PM RADIATION DOSE METRICS: Total DLP (mGy-cm): 1111.92 FINDINGS: Pulmonary arteries: Normal. No pulmonary emboli. Aorta: Unremarkable. No aortic aneurysm. No aortic dissection. Lungs: Unremarkable. No consolidation. No masses. Pleural spaces: Unremarkable. No pneumothorax. No pleural effusion. Heart: Unremarkable. No cardiomegaly. No pericardial effusion. Mediastinal space: Mild hiatal hernia. No thoracic esophageal wall thickening. Lymph nodes: Unremarkable. No enlarged lymph nodes. Bones/joints: Unremarkable. No acute fracture. Soft tissues: Unremarkable. CT/CT angio chest PE protcl [id number] IMPRESSION: Negative CT angiogram of the chest. No acute abnormalities are identified. Radiation Dose CTDIVOL = (mGy): DLP = 1111.92 (mGy-cm) Dictated By:Sourav JacobsinSigned By:Sourav JacobsinSedwige Date/Time:02/19/21 2304DD/ [address] [id number] ReportSigned Patient: Kin Rodriguez #: [id number]: 1980Acct#:[id number]/Sex: 40 / FADM Date: 02/19/21Loc: ERRoom/Bed:Attending Dr: Ordering Provider/Ordering MD: Neva Monteiro MD Date of Service: 02/19/21 Procedure(s): XR chest 1V portable [id number] Accession Number(s): [id number] Report Number: [id number] PROCEDURE INFORMATION: Exam: XR Chest Exam date and time: 02/19/2021 9:28 PM Age: 40 years old Clinical indication: Sternal or substernal pain; Additional info: Chest pain TECHNIQUE: Imaging protocol: XR of the chest. Views: 1 view. COMPARISON: CR XR chest 1V portable [id number] 06/26/2019 11:26 AM FINDINGS: Lungs: Unremarkable. No consolidation. Pleural spaces: Unremarkable. No pleural effusion. No pneumothorax. Heart/Mediastinum: Unremarkable. No cardiomegaly. Bones/joints: Unremarkable. XR/XR chest 1V portable [id number] IMPRESSION: No acute findings. Dictated By:Garett Jacobs By:Garett Jacobs Date/Time:02/19/212304DD/ 03 Discharge Plan Discharge Patient Disposition: Admitted As Inpatient Admit Provider: Yany Sow Clinical Impression: Chest pain, Abnormal ECG Condition: Stable Discharge Diet: Cardiac and Diabetic Discharge Activity: Increase activity as tolerated Coding Level of Care Code ED Health Systems Analyst for Eliazarg Jose
[2021-02-19 22:13] LABS: D Dimer 0.89 ug/mIFEU (0-0.59)
[2021-02-19] MEDS: iohexol 350 mg/mL 100 mL Btl IV (22:21)
[2021-02-19] MEDS: nitroglycerin 1 gm/inch oint Pkt 0.5 INCH TOPICAL (22:40)
--- NOTE | 2021-02-19 23:29 | ECG_ITS ---
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 Measurements Intervals [place] Rate: 77 P: 21 VA: 158 QRS: -4 QRSD: 89 T: 0 QT: 404 QTc: 458 Interpretive Statements SINUS RHYTHM ST DEVIATION AND MODERATE T-WAVE ABNORMALITY, CONSIDER ANTERIOR ISCHEMIA [-0.1+ mV T-WAVE IN V3/V4] Compared to ECG 02/19/2021 21:53:48 No significant changes Electronically Signed On 02-21-2021 21:37:09 CDT by Grace Morris M.D. [id number]
[2021-02-19] MEDS: clopidogrel 300 mg Tablet PO (23:35)
[2021-02-20] VITALS (10 sets, daily range): BP systolic 95–127; BP diastolic 49–84; PULSE 72–81; RESP 16–26; TEMP 36.4–36.8; O2SAT 95–98
[2021-02-20 00:15] LABS: INR 1.08 (0.8-1.2)
[2021-02-20] MEDS: atorvastatin 40 mg Tablet PO (00:16)
[2021-02-20] MEDS: enoxaparin 120 mg/0.8 mL Syringe SUBCUT (00:18)
[2021-02-20 00:28] LABS: Troponin 5 2HR Delta 0 ABS# (0-10)
[2021-02-20 01:05] LABS: HCG, Serum Qual Negative (Negative)
[2021-02-20 01:25] LABS: Thyroid Stimulating Hormone 5.01 uIU/mL (0.27-4.20)
[2021-02-20 01:29] LABS: SARS Covid-2 Antigen Negative (Negative)
--- NOTE | 2021-02-20 01:30 | P.HP_ITS ---
Providers/Chief Complaint Admitting Physician: Yany Sow MD Chief Complaint: sharp pain in her heart History of Present Illness Kin Rodriguez is a 40 year old female with past medical history of diabetes and hypertension presenting to the emergency room today complaining of left- sided chest discomfort. Describes the pain as squeezing sensation on the left side of her chest, nonradiating, no apparent exacerbating or relieving factors, occurring approximately every 3 to 4 minutes. No significant relief with nitro patch so far. Denies any recent cough chest pain dyspnea or palpitations. No recent URI type symptoms. History of Covid in July 2020. No family history of premature CAD Diagnostics in the ER today showed T wave inversion and mild ST depression in leads V1 through V3. Troponin baseline is at 6. CTA of the chest negative for PE. Additionally states that 2 days ago she had an episode of palpitations lasting for a few minutes while she was at rest. No history of similar. In the past. Patient states that she is chronically on Lasix due to bilateral lower extremity swelling, cause unclear. Review of Systems General: Reports: 10 or more systems reviewed and unremarkable except in HPI and below Const: Denies: fever(s), chills or body aches Eyes: Denies: change in vision, blurry vision or photophobia ENMT: Reports: hoarseness; Denies: throat pain, enlarged tonsils, odynophagia or nasal congestion Card: Denies: chest pain, palpitations, irregular heart rhythm, edema, swelling of feet/ankles, lightheadedness, pre-syncope, dyspnea on exertion or orthopnea Resp: Denies: dyspnea, productive cough, non-productive cough, wheezing, stridor, pain on inspiration, change in phlegm color, hemoptysis or chest congestion GI: Denies: abdominal pain, nausea, vomiting, hematemesis, coffee ground emesis, dysphagia, heartburn, diarrhea, constipation, GI cramping, change in stool character, hematochezia or melena : Denies: flank pain, difficulty voiding, dysuria, urinary frequency, ur inary urgency, urinary hesitancy or hematuria Musc: Denies: neck pain, back pain, extremity pain, joint swelling, joint warmth or deformity Neuro: Denies: headache(s), numbness in extremities, weakness in extremities, sensory changes, difficulty walking, frequent falls, dizziness, vertigo, behavioral changes, Slurred speech present or seizure-like activity Psych: Denies: anxiety, depression, suicidal ideation or homicidal ideation Endo: Denies: polyuria, polydipsia, tired all the time, cold intolerance or hot flashes Kenneth/Lymph: Denies: easy bruising or easy bleeding Medications/Allergies Home Medications Medication Instructions Recorded Confirmed Last Taken Type pantoprazole 40 mg tablet,delayed 40 mg PO DAILY #90 tab 12/25/19 01/28/21 02/12/20 Rx release liraglutide 0.6 mg/0.1 mL (18 mg/3 0.6 mg SUBCUT DAILY #6 ml 06/28/20 01/28/21 Unknown Rx mL) subcutaneous pen injector pen needle, diabetic 33 gauge x #100 each 06/28/20 01/28/21 Unknown Rx 5/32 furosemide 20 mg tablet 20 mg PO DAILY #30 tab 08/19/20 01/28/21 Unknown Rx potassium citrate 10 mEq (1,080 10 meq PO DAILY #30 tab 08/19/20 01/28/21 Unknown Rx mg) tablet,extended release bupropion HCl 100 mg tablet,12 hr 100 mg PO QAM #14 tab 01/31/21 01/31/21 Unknown Rx sustained-release Allergies Allergy/AdvReac Type Severity Reaction Status Date / Time ketorolac [From Toradol] Allergy Intermediate ADR-Shakine Verified 02/19/21 20:53 ss sulfamethoxazole Allergy Intermediate ALGY-Rash Verified 02/19/21 20:53 [From Bactrim] trimethoprim [From Bactrim] Allergy Intermediate ALGY-Rash Verified 02/19/21 20:53 PFSH Acute PFSH: Medical History Bipolar II disorder Diabetes type 2, uncontrolled Generalized anxiety disorder GERD (gastroesophageal reflux disease) Personal history of traumatic brain injury Surgical History Ectopic Lost left tube has right tube Family History Other Cancer Chronic kidney disease (CKD) Clotting disorder Diabetes Hypertension Stroke Suicide Denies family history of CAD (coronary artery disease) Social History (Reviewed 02/20/21 @ 01:35 by OMAR Talbot Smoking and tobacco status: former smoker Second hand smoke exposure: No Smoking risk assessment/counseling performed?: No Alcohol intake: current Alcohol intake frequency: holidays/special occasions only Desire information about alcohol rehabilitation?: No Counseling given: No Desire information about substance/drug rehabilitation?: No Counseling given: No Adopted: No Caregiver/support person: No Lives independently: Yes Housing: House Marital status: Single Number of children: 3 Highest education level completed: High School Graduate service: No Current occupational status: employed 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 Pets and animals: Yes History of recent travel: No Current gender identity: Female Female Reproductive History: Date of last menstrual period: 02/15/21 Vitals/I&O/Wt Last Vital Signs Temp 97.2 F L 02/19/21 20:50 Pulse 79 02/20/21 00:19 Resp 18 02/20/21 00:19 BP 120/78 02/20/21 00:19 Pulse Ox 96 02/20/21 00:19 Weight last 48 hrs Weight 127.006 kg Physical Exam Narrative: EXAM NARRATIVE: General: No acute distress, AO x3 HEENT: PERRLA, pupils bilaterally equal and reactive, pallors not present Chest: Normal vesicular breath sounds, no added sounds, equal good air entry bilaterally CVS: S1-S2 regular, no murmurs, no tachycardia, no gallops, no rubs Abdomen: Soft, nontender, no organomegaly, bowel sounds present Neuro: No focal deficits, no facial deformity, AO x3, power 5/5 in all limbs Data : 02/19/21 21:14 02/19/21 21:14 Other Labs: Laboratory Results WBC 9.6 10^3/uL (4.0-10.0) 02/19/21 21:14 RBC 4.53 10^6/uL (4.1-5.3) 02/19/21 21:14 Hgb 13.2 g/dL (11.5-15.3) 02/19/21 21:14 Hct 42.8 % (37.0-47.0) 02/19/21 21:14 MCV 94.5 fl (81-99) 02/19/21 21:14 MCH 29.1 pg (28.0-34.0) 02/19/21 21:14 MCHC 30.8 g/dL (30.0-36.0) 02/19/21 21:14 RDW 13.1 % (12.1-15.1) 02/19/21 21:14 Plt Count 259 10^3/cmm (130-400) 02/19/21 21:14 MPV 11.0 fL (7.4-10.4) H 02/19/21 21:14 Neut % (Auto) 61.6 % 02/19/21 21:14 Lymph % (Auto) 30.1 % 02/19/21 21:14 [place] % (Auto) 4.7 % 02/19/21 21:14 Eos % (Auto) 1.9 % 02/19/21 21:14 Baso % (Auto) 0.8 % 02/19/21 21:14 Neut # (Auto) 5.90 10^3/uL (1.8-7.7) 02/19/21 21:14 Lymph # (Auto) 2.9 10^3/uL (0.8-4.8) 02/19/21 21:14 [place] # (Auto) 0.5 10^3/uL (0.2-0.9) 02/19/21 21:14 Eos # (Auto) 0.2 10^3/uL (0.0-0.8) 02/19/21 21:14 Baso # (Auto) 0.1 10^3/uL (0.0-0.1) 02/19/21 21:14 Nucleated RBC % (auto) 0 % 02/19/21 21:14 Nucleated RBCs # 0.0 /100WBC 02/19/21 21:14 PT 14.40 SECONDS (12.1-14.9) 02/19/21 23:50 INR 1.08 (0.8-1.2) 02/19/21 23:50 APTT 26.0 SECONDS (23.9-36.7) 02/19/21 23:50 D-Dimer 0.89 ug/mIFEU (0-0.59) H 02/19/21 21:14 Sodium 139 mmol/L (136-145) 02/19/21 21:14 Potassium 4.4 mmol/L (3.5-5.1) 02/19/21 21:14 Chloride 102 mmol/L (98-107) 02/19/21 21:14 Carbon Dioxide 25 mmol/L (22-29) 02/19/21 21:14 Anion Gap 16.4 (5-19) 02/19/21 21:14 BUN 10 mg/dL (6-20) 02/19/21 21:14 Creatinine 0.7 mg/dL (0.5-0.9) 02/19/21 21:14 GFR Calculation 92.7 mL/min (90-130) 02/19/21 21:14 Glucose 166 mg/dL (65-115) H 02/19/21 21:14 Calculated Osmolality 291 mOsm/kg (285-295) 02/19/21 21:14 Calcium 8.7 mg/dL (8.5-10.5) 02/19/21 21:14 Troponin T Baseline 6 ng/L (0-10) 02/19/21 21:14 Troponin T 120 Minute 6.00 ng/L (0-10) 02/19/21 23:50 Delta Troponin T 0 ABS# (0-10) 02/19/21 23:50 TSH 5.01 uIU/mL (0.27-4.20) H 02/19/21 23:50 HCG, Qual Negative (Negative) 02/19/21 21:14 SARS-CoV-2 Ag (Rapid) Negative (Negative) 02/20/21 00:44 Impressions Chest X-Ray 02/19/21 21:28 IMPRESSION: No acute findings. Chest CTA 02/19/21 21:48 IMPRESSION: Negative CT angiogram of the chest. No acute abnormalities are identified. Radiation Dose CTDIVOL = (mGy): DLP = 1111.92 (mGy-cm) A&P Assessment and plan (1) Chest pain: Admit to CSU with continuous telemetry monitoring Patient presenting today with left-sided chest discomfort with EKG changes as described above. Troponin baseline at 6, pending 2 and 6-hour troponins at this time. Continue EKG and troponin series. Cardiology was consulted from the ER by Dr. Monteiro, concern for Wellens syndrome given her EKG changes which may correlate with proximal LAD occlusion. Recommendations to start patient on aspirin Plavix and anticoagulation while pending above results. She has thus far received aspirin 325 mg, Plavix 300 mg in the ER.Continue with aspirin 81 mg p.o. daily, Lovenox 120 mg subcutaneous every 12 hours. Check TSH, HbA1c, lipid panel , beta hCG Insulin sliding scale for diabetes mellitus Continue home dose of Wellbutrin Clinically appears to be euvolemic, continue home dose of Lasix 20 mg daily will obtain Echocardiogram possible stress test vs angiogram after cardiology assessment NPO after midnight Status: Acute Qualifiers: Chest pain type: precordial pain Qualified Code(s): R07.2 - Precordial pain Additional A&P Information Full code DVT ppx: on anticoagulation currently Attestations Medical Necessity Statement*: anticipate >2midnight admission for above defined care Coding Level of Care Code 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
[2021-02-20] MEDS: acetaminophen 325 mg Tablet 650 MG PO ×2 (02:40→11:19)
--- NOTE | 2021-02-20 03:07 | PC.NURSE ---
Admit Note Around 0200: Patient admitted to CSU from ED via wheelchair. Covering service notified. Patient presents with c/o chest pain. Orders reviewed & will continue to monitor. Patient and/or screening representative oriented to environment, equipment, and informed of the following as found in the admission booklet: patient rights & responsibilities, visitor policy, hand and respiratory hygiene practice. Other education includes: reportable signs and symptoms and activity assist. Patient and/or screening representative. Verbalized understanding of all teaching.
--- NOTE | 2021-02-20 03:29 | ECG_ITS ---
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 Measurements Intervals [place] Rate: 72 P: 39 IN: 169 QRS: 21 QRSD: 100 T: 1 QT: 432 QTc: 475 Interpretive Statements SINUS RHYTHM LOW QRS VOLTAGE IN EXTREMITY LEADS [QRS DEFLECTION < 0.5 mV IN LIMB LEADS] ST & T-WAVE ABNORMALITY, CONSIDER ANTERIOR ISCHEMIA Compared to ECG 02/19/2021 23:32:00 Low QRS voltage now present Possible ischemia no longer present T-wave abnormality still present Electronically Signed On 02-21-2021 21:36:14 CDT by Grace Morris M.D. [email or web address]
[2021-02-20 05:19] LABS: Glucose Point of Care 161 mg/dL (70-110)
[2021-02-20 05:35] LABS: Basophils # 0.1 10^3/uL (0.0-0.1); Basophils % 0.8 %; Eosinophils # 0.1 10^3/uL (0.0-0.8); Eosinophils % 1.7 %; Hematocrit 36.4 % (37.0-47.0); Hemoglobin 11.7 g/dL (11.5-15.3); Lymphocytes # 2.7 10^3/uL (0.8-4.8); Lymphocytes % 37.7 %; Mean Corpuscular HGB Conc 32.1 g/dL (30.0-36.0); Mean Corpuscular Hemoglobin 29.2 pg (28.0-34.0); Mean Corpuscular Volume 90.8 fl (81-99); Mean Platelet Volume 11.5 fL (7.4-10.4); Monocytes # 0.4 10^3/uL (0.2-0.9); Neutrophils # 3.86 10^3/uL (1.8-7.7); Nucleated Red Blood Cells % 0 %; Platelet Count 216 10^3/cmm (130-400); Red Blood Count 4.01 10^6/uL (4.1-5.3); Red Cell Distribution Width 13.1 % (12.1-15.1); White Blood Count 7.2 10^3/uL (4.0-10.0)
[2021-02-20 05:47] LABS: Partial Thromboplastin Time 34.7 SECONDS (23.9-36.7)
[2021-02-20 05:58] LABS: Estmated Average Glucose 197; Hemoglobin A1C 8.5 % (4.0-6.0)
[2021-02-20 05:59] LABS: Chol HDL Ratio 4.46 mg/dL (0.0-4.40); Cholesterol 156 mg/dL (0-200); HDL Cholesterol 35 mg/dL (60-100); LDL Cholesterol Calculated 97 mg/dL (50-129); LDL HDL Ratio 2.77 RATIO (0.00-3.22); Triglycerides 121 mg/dL (0-150)
[2021-02-20 06:06] LABS: Free T4 Free Thyroxine 1.09 ng/dL (0.82-1.77); T3 Free 2.8 PG/ML (2.0-4.4)
[2021-02-20 06:07] LABS: Troponin 5 6HR Delta 0 ng/L (0-12)
[2021-02-20 06:08] LABS: Blood Urea Nitrogen 7 mg/dL (6-20); Calcium 8.2 mg/dL (8.5-10.5); Carbon Dioxide 24 mmol/L (22-29); Chloride 99 mmol/L (98-107); Glomerular Filtration Rate 136.6 mL/min (90-130); Glucose 153 mg/dL (65-115); Osmolality Calculated 283 mOsm/kg (285-295); Sodium 136 mmol/L (136-145)
[2021-02-20 06:28] LABS: Anion Gap 16.5 (5-19); Potassium 3.5 mmol/L (3.5-5.1)
[2021-02-20 07:10] LABS: Glucose Point of Care 150 mg/dL (70-110)
--- NOTE | 2021-02-20 10:13 | PM.CONSULT ---
Providers/Reason For Consult Consulting Physician/Specialty*: Dr. Morris, cardiology Reason for Consult*: Chest pain Attending Physician: Flakito Roberto MD History of Present Illness History of Present Illness Kin Rodriguez is a 40 year old female with past medical history of type 2 diabetes mellitus diagnosed about a year ago with most recent hemoglobin A1c ~8.5, depression, morbid obesity with BMI greater than 40 and anxiety/depression. 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 She complains of intermittent episodes of chest pain, heart fluttering and tachycardia. Yesterday she noticed that she was having frequent episodes of sharp chest pain just above her left breast 3/10 in intensity that lasts few seconds. As it was happening quite frequently she decided to come to the ER for further evaluation. She has had no prior cardiac work-up. Her mother has history of diabetes, atrial flutter/fibrillation, congestive heart failure and coronary artery fistula. On arrival to the ER she underwent EKG that shows T wave inversion in V1, V2 and V3 with minimal ST depression. T wave inversion in lead III noted as well. No changes noted on subsequent EKGs. Troponins have been flat. I have been asked to assist in further management. Review of Systems General: Reports: 10 or more systems reviewed and unremarkable except in HPI and below Const: Denies: fever(s), chills or body aches Eyes: Denies: change in vision ENMT: Denies: throat pain or nasal congestion Card: Reports: chest pain and palpitations; Denies: irregular heart rhythm, edema, swelling of feet/ankles, lightheadedness, pre-syncope, dyspnea on exertion or orthopnea Resp: Denies: dyspnea, productive cough, non-productive cough, wheezing, pain on inspiration or chest congestion GI: Denies: abdominal pain, nausea, vomiting, hematemesis, coffee ground emesis, heartburn, diarrhea, constipation, GI cramping, change in stool character, hematochezia or melena : Denies: flank pain, dysuria, urinary frequency or hematuria Musc: Denies: neck pain, back pain, extremity pain or joint swelling Neuro: Denies: headache(s), numbness in extremities, weakness in extremities, sensory changes, difficulty walking, frequent falls, dizziness, vertigo, behavioral changes, Slurred speech present or seizure-like activity Psych: Denies: suicidal ideation or homicidal ideation Endo: Denies: polyuria or polydipsia Kenneth/Lymph: Denies: easy bruising or easy bleeding Meds/Allergies Home Medications and Allergies Home Medications Medication Instructions Recorded Confirmed Last Taken Type pantoprazole 40 mg tablet,delayed 40 mg PO DAILY #90 tab 12/25/19 02/20/21 02/20/21 Rx release pen needle, diabetic 33 gauge x #100 each 06/28/20 01/28/21 Unknown Rx bupropion HCl 100 mg tablet,12 hr 100 mg PO QAM #14 tab 01/31/21 02/20/21 02/19/21 Rx sustained-release furosemide [Lasix] 20 mg PO DAILY PRN 02/20/21 02/20/21 02/12/21 09:00 History potassium citrate 10 meq PO DAILY PRN 02/20/21 02/20/21 Unknown History Allergies Allergy/AdvReac Type Severity Reaction Status Date / Time ketorolac [From Toradol] Allergy Intermediate ADR-Shakine Verified 02/19/21 20:53 ss sulfamethoxazole Allergy Intermediate ALGY-Rash Verified 02/19/21 20:53 [From Bactrim] trimethoprim [From Bactrim] Allergy Intermediate ALGY-Rash Verified 02/19/21 20:53 Current Medications Current Medications Generic Name Dose Route Start Last Admin Trade Name Freq PRN Reason Stop Dose Admin Acetaminophen 650 mg 02/19/21 23:39 02/20/21 02:40 Acetaminophen 325 Mg Tablet PO 650 mg Q6H PRN Administration Mild/Mod Pain Or Temp >/= 101 Atorvastatin Calcium 40 mg 02/19/21 23:45 02/20/21 00:16 Atorvastatin 40 Mg Tablet PO 40 mg DAILY MARY Administration PFSH Acute PFSH: Medical History Bipolar II disorder COVID-30 Jul 2020 Diabetes type 2, uncontrolled Generalized anxiety disorder GERD (gastroesophageal reflux disease) Personal history of traumatic brain injury Surgical History Ectopic Lost left tube has right tube Family History Other Cancer Chronic kidney disease (CKD) Clotting disorder Diabetes Hypertension Stroke Suicide Denies family history of CAD (coronary artery disease) Social History Smoking and tobacco status: former smoker Second hand smoke exposure: No Smoking risk assessment/counseling performed?: No Alcohol intake: current Alcohol intake frequency: holidays/special occasions only Desire information about alcohol rehabilitation?: No Counseling given: No Desire information about substance/drug rehabilitation?: No Counseling given: No Adopted: No Caregiver/support person: No Lives independently: Yes Housing: House Marital status: Single Number of children: 3 Highest education level completed: High School Graduate service: No Current occupational status: employed 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 Pets and animals: Yes History of recent travel: No Current gender identity: Female Female Reproductive History: Date of last menstrual period: 02/15/21 Vitals/I&O/Wt Last Vital Signs Temp 97.9 F 02/20/21 07:12 Pulse 72 02/20/21 07:12 Resp 16 02/20/21 07:12 BP 105/49 02/20/21 07:12 Pulse Ox 98 02/20/21 07:12 02/19/21 02/20/21 02/20/21 22:59 06:59 14:59 Output Total 500 / 500 Balance -500 / -500 Weight last 48 hrs Weight 257 lb 11.2 oz Weight 256 lb 3.2 oz Weight 280 lb Physical Exam Narrative: EXAM NARRATIVE: GENERAL:Morbidly obese woman laying in bed in no acute distress HEENT: Extraocular movement intact. Pupils equal round reactive to light. No pallor or icterus. NECK: central trachea, No JVD. No carotid bruit. CARDIOVASCULAR SYSTEM: S1-S2 regular. No murmur rubs or gallops. Reproducible chest pain+ RESPIRATORY SYSTEM: Chest clear to auscultation. No wheezes rhonchi or rubs heard.No use of accessory muscles. ABDOMEN: Soft, nontender and nondistended. Normal bowel sounds present. EXTREMITIES: No cyanosis or clubbing. No pitting edema. No signs of chronic venous insufficiency. MUSIC SUPERVISOR: Patient is alert oriented ?3. No focal neurological deficits. SKIN: Normal turgor and temperature. PSYCH: Normal insight and judgment. Data Labs: Other Labs: Hemoglobin A1c 8 , 3 sets of troponin T at 6. Other Data: Attestation for Other Data: I personally reviewed and interpreted the following: Other data: TTE CONCLUSIONS 1. Normal left ventricular size, systolic function and wall thickness, with no diagnostic regional wall motion abnormalities. Left ventricular ejection fraction is estimated at 60 %. Normal diastolic function. 2. Normal right ventricular size and systolic function. 3. No significant valvular abnormality. 4. No prior similar studies to compare. A&P Assessment and plan (1) Chest pain: Chest pain is sharp, fleeting and reproducible. - EKG with minimal ST depression and T wave inversion in V1-V3 and lead III. No changes on subsequent EKG's. Troponins with no delta. -No RWMA -CTA negative for PE -continue ASA and statin. -Plan for stress test in am. Status: Acute Qualifiers: Chest pain type: precordial pain Qualified Code(s): R07.2 - Precordial pain (2) Diabetes type 2, uncontrolled: Status: Chronic Qualifiers: Glycemic state: with hyperglycemia Qualified Code(s): E11.65 - Type 2 diabetes mellitus with hyperglycemia (3) Morbid obesity due to excess calories: Status: Chronic (4) Generalized anxiety disorder: Status: Acute Additional A&P Information Morbid obesity Thank you for allowing me to participate in patient's care. Please feel free to call with questions or concerns. Consult Attestations Time Spent in Patient Care: 16 - 35 minutes (>than 50% of time spent in counselling and/or direct pt care on unit). 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
[2021-02-20] MEDS: pantoprazole DR 40 mg Tablet PO (10:38)
[2021-02-20] MEDS: buPROPion SR (12 HR) 100 mg Tablet PO (10:38)
[2021-02-20] MEDS: aspirin 81 mg EC Tablet PO (10:43)
[2021-02-20 11:44] LABS: Glucose Point of Care 186 mg/dL (70-110)
--- NOTE | 2021-02-20 14:00 | P.PN_ITS ---
Subjective Subjective: Interval history: Admitted overnight. H&P and labs appreciated. Examination laying comfortably in bed. Denies any nausea, vomiting, headache. Complaining of full code left supramammary chest pain without radiation. Asking for food stating she is hungry. Vitals/I&O/Wt Last Vital Signs Temp 97.9 F 02/20/21 07:12 Pulse 72 02/20/21 07:12 Resp 16 02/20/21 07:12 BP 105/49 02/20/21 07:12 Pulse Ox 98 02/20/21 07:12 02/19/21 02/20/21 02/20/21 22:59 06:59 14:59 Output Total 500 / 500 Balance -500 / -500 Weight last 48 hrs Weight 116.891 kg Weight 116.21 kg Weight 127.006 kg Physical Exam Narrative: EXAM NARRATIVE: General: No acute distress, AO x3 HEENT: PERRLA, pupils bilaterally equal and reactive Chest: Normal vesicular breath sounds, no added sounds, equal good air entry bilaterally CVS: S1-S2 regular, no murmurs, no tachycardia, no gallops, no rubs Abdomen: Soft, nontender, no organomegaly, bowel sounds present Neuro: No focal deficits, no facial deformity, AO x3, power 5/5 in all limbs Data : 02/20/21 04:12 02/20/21 04:12 A&P Assessment and plan (1) Chest pain: Continue on aspirin, Plavix. Appreciate HbA1c, lipid panel. Troponin and EKG series have remained stable and negative. Cardiac diet. N.p.o. after midnight for stress test tomorrow morning. Change full dose Lovenox to prophylactic dose 40 mg subcu daily. Echocardiogram shows an normal EF and no WMA with normal diastolic function. Status: Acute Qualifiers: Chest pain type: precordial pain Qualified Code(s): R07.2 - Precordial pain Additional A&P Information Full code DVT ppx: Lovenox Famotidine for PUD prophylaxis. Continue other chronic home medications. Attestations Medical Necessity Statement*: Needs further hospitalization for evaluation of chest pain with concerning EKG changes. Time Spent in Patient Care: Greater than 35 minutes (>than 50% of time spent in counselling and/or direct pt care on unit) . 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
[2021-02-20] MEDS: alum-mag-hydroxide-sime 30 mL UDC 15 ML PO (14:09)
[2021-02-20 17:09] LABS: Glucose Point of Care 129 mg/dL (70-110)
--- NOTE | 2021-02-20 18:53 | PC.NURSE ---
Shift Note Frequent safety and comfort rounds continue. Orders and/or nursing care completed as indicated. Patient monitored for response to intervention and treatment(s). Education provided includes[]. Patient and/or direct customer service representative [ResponseToTeaching]. Will continue to monitor.
--- NOTE | 2021-02-20 20:01 | PC.NURSE ---
patient up to shower at this time, patient tolerating activity very well at this time.
[2021-02-20 20:25] LABS: Glucose Point of Care 254 mg/dL (70-110)
[2021-02-20] MEDS: enoxaparin 40 mg/0.4 mL Syringe SUBCUT (20:56)
--- NOTE | 2021-02-20 23:45 | USCV_ITS ---
Victorianotan Kin Age: 40 Gender: F : 1980 Exam Date: 02/20/2021 06:31 Ordering Phys: Yany Sow MD Technologist: Michelle Soler Exam Location: [facility] [place] Indication: Chest pain, angina BP: 95 / 54 HR: 69 Rhythm: Sinus Technical Quality: Suboptimal MEASUREMENTS (Male / Female) Normal Values 2D ECHO LV Diastolic Diameter PLAX 5.0 cm 4.2 - 5.9 / 3.9 - 5.3 cm LV Systolic Diameter PLAX 3.4 cm LV Chamber Size 4.0 cm IVS Diastolic Thickness 1.3 cm 0.6 - 1.0 / 0.6 - 0.9 cm IVS Systolic Thickness 1.6 cm LVPW Diastolic Thickness 1.2 cm 0.6 - 1.0 / 0.6 - 0.9 cm LVPW Systolic Thickness 1.2 cm RV Chamber Size 2.6 cm LVOT Diameter 2.1 cm LV Ejection Fraction 2D Teich 58.9 % LV Ejection Fraction MOD 2C 65.0 % LV Ejection Fraction 2C AL 64.5 % LA Diameter 3.4 cm LA Width 2.3 cm LA Height 5.3 cm RA Width 2.6 cm RA Height 3.9 cm Aorta at Sinotubular Diameter 3.0 cm M-MODE LV Diastolic Diameter MM 5.2 cm 4.2 - 5.9 / 3.9 - 5.3 cm LV Systolic Diameter MM 3.4 cm LV Ejection Fraction MM Teich 62.7 % IVS Diastolic Thickness MM 1.2 cm 0.6 - 1.0 / 0.6 - 0.9 cm IVS Systolic Thickness MM 1.3 cm LVPW Diastolic Thickness MM 1.1 cm 0.6 - 1.0 / 0.6 - 0.9 cm LVPW Systolic Thickness MM 1.8 cm RV Diastolic Diameter MM 1.9 cm Aortic Annulus Diameter 3.5 cm LA Ao Ratio MM 1.1 MV E Point Septal Separation 0.8 cm DOPPLER AV Peak Velocity 97.0 cm/s LVOT Peak Velocity 66.0 cm/s AV Area Cont Eq vti 2.8 cm squared AV Area Cont Eq pk 2.4 cm squared MV Area PHT 5.0 cm squared Mitral E to A Ratio 1.3 MV E' Velocity 37.5 cm/s Mitral E to MV E' Ratio 5.4 Mitral E to LV E' Lateral Ratio 5.7 Mitral E to LV E' Septal Ratio 5.2 TV Peak E Velocity 63.0 cm/s Right Atrial Pressure 3.0 mmHg PV Peak Velocity 48.0 cm/s RV Acceleration Time 0.1 s RV Ejection Time 0.3 s RV AcT/ET 0.3 FINDINGS Left Ventricle Normal left ventricular size, systolic function and wall thickness, with no diagnostic regional wall motion abnormalities. Left ventricular ejection fraction is estimated at 60 %. Normal diastolic function. Right Ventricle Normal right ventricular size and systolic function. RVSP could not be calculated due to incomplete tricuspid regurgitation velocity profile. Right Atrium Normal right atrial size. Right atrial pressure estimated at 3 mm Hg. Left Atrium Normal left atrial size. Mitral Valve Structurally normal mitral valve. No mitral valve stenosis. No mitral valve regurgitation. Aortic Valve Structurally normal trileaflet aortic valve. No aortic valve stenosis. No aortic valve regurgitation. Tricuspid Valve Structurally normal tricuspid valve. No tricuspid valve stenosis. Trace tricuspid valve regurgitation. Pulmonic Valve Structurally normal pulmonic valve. No pulmonary valve stenosis. Trace pulmonary valve regurgitation. Pericardium No pericardial effusion. Aorta Normal size aortic root and proximal ascending aorta. CONCLUSIONS 1. Normal left ventricular size, systolic function and wall thickness, with no diagnostic regional wall motion abnormalities. Left ventricular ejection fraction is estimated at 60 %. Normal diastolic function. 2. Normal right ventricular size and systolic function. 3. No significant valvular abnormality. 4. No prior similar studies to compare. Grace Morris MD (Electronically Signed) Final Date: 20 February 2021 08:50 S
[2021-02-21] VITALS (8 sets, daily range): BP systolic 104–136; BP diastolic 56–99; PULSE 63–91; RESP 12–24; TEMP 36.8–37.2; O2SAT 94–95
[2021-02-21 06:39] LABS: Glucose Point of Care 163 mg/dL (70-110)
--- NOTE | 2021-02-21 06:58 | SUR.PREOP ---
PRE OP SCREENING In to complete nuclear injection. Found Dr Dent at bedside. Patient states she don't think she had any since midnight but is not completely certain of the time. Injection held at the time as Caffeine is contraindicated for lexiscan and notified me. I called the floor and talked to the covering RN. States he will call the ordering MD of the finding. I told him Lexiscan was no longer an option d/t the caffeine intake but if the patient can walk on treadmil and has been of beta blockers for 48 hours and calcium channel blockers for 24 hours we can proceed with that but the nuclear dosing decays so we needed an order from the MD to change the test. States he will call.
--- NOTE | 2021-02-21 08:21 | PC.NURSE ---
pt stated when asked when was the last time she had a caffeine Pt stated, i just had a few sips of my boyfriend's Dr. webb last night around 11 pm. Notified [facility] [place] medicine regarding pt's time of caffeine consumption.
--- NOTE | 2021-02-21 08:30 | PC.NURSE ---
Talked to pt regarding ability to walk on a treadmill for an exercise mibi instead of chemical test Pt stated that she is willing to do it. Linda of [facility] notified Dr. Morris and informed her on pt's ability to do the treadmill exercise test.
--- NOTE | 2021-02-21 08:35 | ECG_ITS ---
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 Interpretive Statements NAME OF STUDY: EXERCISE SESTAMIBI STRESS TEST INDICATION: Chest Pain Baseline blood pressure of 132/84 mm Hg, heart rate of 78 beats per minute and oxygen saturation of 98%. EKG showed normal sinus rhythm, normal axis with ST segment depression and T wave in version V1 to V6. The patient exercised for 7 minutes 26 seconds on a standard Azeem protocol. Patient attained a maximum heart rate of 166 beats per minute(92% of the maximum predicted heart rate) with a blood pressure at the peak exercise of 162/88 mm Hg. The EKG at the peak exercise revealed sinus tachycardia with persistent ST segment depression and T wave inversion V1 to V4 T wave became upright in V5 and V6 during stage I of exercise. Patient did not have any chest pain or any significant arrhythmis with the exercise During the recovery phase, there were no new changes. Blood pressure at the end of the recovery phase was 136/99 mm Hg with a heart rate of 91 beats per minute and oxygen saturation 97%. CONCLUSION: 1. Equivocal EKG response to treadmill exercise given baseline ST-T wave changes. 2. No exercise-induced chest pain or cardiac arrhythmia 3. Good exercise tolerance for age, attained a maximum of 10.2 METs. Maximum VO2 of 35.7 mL/kg/min. 4. Baseline normal blood pressure with normal response to exercise. 5. Perfusion scan will be documented separately. Electronically Signed On 02-21-2021 14:41:19 CDT by Grace Morris M.D. [id number]
--- NOTE | 2021-02-21 08:35 | NMCV_ITS ---
NM sarwat perf SPECT r/s* [id number] Kin Rodriguez Age: 40 Gender: F : 1980 Exam Date: 02/21/2021 11:22 Ordering Phys: Grace Morris MD ([email or web address]) Technologist: NAEEM Coffey Exam Location: [facility] Indications: CHEST PAIN STRESS TEST [facility] IMAGE PROTOCOL Rest/Stress 1 Exercise Day Radiopharmaceutical Dose (mCi) Administration Site Administered by Rest: Tc-99m 11.0 IV NAEEM Reis Sestamibi Stress:Tc-99m 32.4 IV NAEEM Coffey Sestamilinn Rest: 21-Feb-2021 60 Discovery 630 Stress: 21-Feb-2021 15 Discovery 630 Radiopharmaceutical was injected at 87 % maximum heart rate. Images obtained in supine and prone position. SPECT RESULTS Technical Quality: Excellent Raw Data Analysis: Breast attenuation Image Corrections: No attenuation or motion correction applied Summed Stress Score: 0 Summed Rest Score: 0 Summed Difference Score: 0 PERFUSION FINDINGS Small size perfusion abnormality of mild severity of apical anterior, apical lateral martinez. This likely represents breast attenuation artifact. FUNCTIONAL RESULTS (calculated via Gated SPECT) Stress Image LV EF (%): 71 Stress EDV (mL):97 TID: 0.92 Stress ESV (mL):28 FUNCTIONAL FINDINGS: The left ventricle is normal in size. Transient Ischemia Dilatation of 0.92. There is normal left ventricular systolic function. The left ventricular ejection fraction is normal with a value of 71%. There is normal left ventricular wall thickening with no regional wall motion abnormality. IMPRESSIONS 1. Myocardial perfusion imaging is normal. Breast attenuation artifact noted in apical martinez. 2. Overall left ventricular systolic function is normal without regional wall motion abnormalities. 3. The left ventricular ejection fraction is normal with a value of 71%. 4. Normal end-diastolic end-systolic volumes. 5. Equivocal EKG response to exercise given baseline ST-T wave changes. Good functional capacity. Please refer to separate report for details. Grace Morris MD (Electronically Signed) Final Date: 21 February 2021 14:53 S
--- NOTE | 2021-02-21 08:36 | PC.CHAP ---
Pastoral Care Encounter/Spiritual Assessment Type of Contact [] Declined autoglazier visit [] Patient/Family/Request visit [] Outpatient visit [] Follow-up visit [] Physician referral [] Code/Alert [x] Routine visit [] Staff referral [] Actively dying [x] Patient sleeping [] Family support [] [] Out of room [] Palliative care [] [] Receiving care in room [] Pre-surgical visit [] Trauma [] Long length of stay [] ICU visit [] Other: Relational/Emotional Strength [] Patient feels connected with others/family/visitors/staff [] Distress [] Loneliness/isolation [] Abandonment Spirituality of Patient [] Person of [place] [] Attends Sikhism of their [place] [] Believes in Prayer [] Reads Bible or Temple materials [] There are Spiritual issues to be addressed Unloader Operator Interventions [x] Prayer [] Active listening [] Non-anxious presence [] Spiritual/emotional support [] Crisis/trauma care [] Spiritual counseling [] Bereavement support [] Provided bereavement packet [] Provided Bible/devotional materials [] Provided toy/stuffed animal, coloring book to patient or family member [] Provided Communion [] Anointing/[place] [] Salvation [x] Completed spiritual assessment [] Other: Impact on Illness or Injury [] Angry [] Fearful [] Anxious [] Often cries [] Exhaustion [] Unable to work [] Unable to attend spiritism [] Unable to walk/stand [] Unable to read [] Unable to drive [] Unable to eat/drink [] Unable to sleep [] Unable to be with family [] Patient intubated [] Other: Summary Time spent with patient
--- NOTE | 2021-02-21 10:00 | PC.NURSE ---
Pt denies any chest pain or discomfort since 5 pm per pt report. Pt has been up and moving around the room waiting for her stress test. Informed
--- NOTE | 2021-02-21 10:47 | PM.PN ---
Subjective Subjective: Interval history: Kin reports that she is feeling good this morning and has not had chest pain since yesterday evening. She is concerned about the chest pain and wants to figure out the underlying cause. She denies shortness of breath, nausea, diaphoresis, and abdominal pain. She will go for stress testing this morning. Medications: Reviewed: Yes Vitals/I&O/Wt Last Vital Signs Temp 98.3 F 02/21/21 03:40 Pulse 63 02/21/21 10:18 Resp 24 H 02/21/21 03:40 BP 119/79 02/21/21 10:18 Pulse Ox 94 02/21/21 10:18 02/20/21 02/21/21 02/21/21 22:59 06:59 14:59 Intake Total 360 / 360 Balance 360 / 360 Weight last 48 hrs Weight 117.027 kg Weight 116.891 kg Weight 116.21 kg Weight 127.006 kg Physical Exam Narrative: EXAM NARRATIVE: General: Female in no acute distress, AO x3. HEENT: PERRLA, oropharynx clear. Neck supple no JVD or lymphadenopathy. Chest: Normal vesicular breath sounds bilaterally. No wheezes, rales, or rhonchi. CVS: S1-S2 regular rate and rhythm. No murmurs, rubs, or gallops. Abdomen: Soft, nontender, no organomegaly, bowel sounds present Neuro: No focal deficits, no facial deformity, AO x3, strength 5/5 in all limbs. Extremities no cyanosis clubbing or edema. deferred. Data : 02/20/21 04:12 02/20/21 04:12 Other data: Echo left ventricular EF 60%. No significant valvular or wall motion abnormality. Normal right ventricular size and systolic function. COVID rapid negative A&P Assessment and plan (1) Chest pain: Continue on aspirin, Plavix. Troponin and EKG series have remained stable and negative. Cardiac diet. Stress test today. Continue Lovenox prophylactic dose 40 mg subcu daily. Echocardiogram shows an normal EF 60% and no WMA with normal diastolic function. Status: Acute Qualifiers: Chest pain type: precordial pain Qualified Code(s): R07.2 - Precordial pain Additional A&P Information Full code DVT ppx: Lovenox Famotidine for PUD prophylaxis. Continue other chronic home medications. Coding Level of Care Code Acute Director Social Welfare for g Fwd Diagnoses Chest pain R07.2 Chest pain type: precordial pain
--- NOTE | 2021-02-21 11:09 | PM.PN ---
Subjective Subjective: Interval history: Kin reports that she is feeling better today and has not had chest pain since yesterday evening. She is concerned about her chest pain and wants to figure out the underlying cause. She denies shortness of breath, nausea, diaphoresis and abdominal pain. She will have a stress test this morning. Medications: Reviewed: Yes Vitals/I&O/Wt Last Vital Signs Temp 98.3 F 02/21/21 03:40 Pulse 63 02/21/21 10:18 Resp 24 H 02/21/21 03:40 BP 119/79 02/21/21 10:18 Pulse Ox 94 02/21/21 10:18 02/20/21 02/21/21 02/21/21 22:59 06:59 14:59 Intake Total 360 / 360 Balance 360 / 360 Weight last 48 hrs Weight 117.027 kg Weight 116.891 kg Weight 116.21 kg Weight 127.006 kg Physical Exam Narrative: EXAM NARRATIVE: General: Feamle no acute distress, AO x3. HEENT: PERRLA, oropharynx clear. Neck supple no JVD or lymphadenopathy. Chest: Normal vesicular breath sounds bilaterally. No wheezes rales or rhonchi. Cardio: S1-S2 regular rate and rhythm. No murmurs rubs or gallops. Abdomen: Soft, nontender, no organomegaly, bowel sounds present. Neuro: No focal deficits, no facial deformity, AO x3, strength 5/5 in all limbs. Extremities no cyanosis clubbing or edema. deferred Data : 02/20/21 04:12 02/20/21 04:12 A&P Assessment and plan (1) Chest pain: Possible unstable angina. Cardiac stress test today. Will await cardiology recommendations. Continue aspirin. Troponin and EKG series have remained stable and negative. Continue Lovenox prophylactic dose 40 mg subcu daily. cardiac diet Echocardiogram shows a normal EF of 60%. No valvular or wall motion abnormalities with normal diastolic function. Full code Lovenox for DVT prophylaxis Status: Acute Qualifiers: Chest pain type: precordial pain Qualified Code(s): R07.2 - Precordial pain Coding Level of Care Code Acute Seismograph Supervisor for [facility] Diagnoses Chest pain R07.2 Chest pain type: precordial pain
--- NOTE | 2021-02-21 12:43 | PC.NURSE ---
off unit for stress test
[2021-02-21] MEDS: aspirin 81 mg EC Tablet PO (13:50)
[2021-02-21] MEDS: atorvastatin 40 mg Tablet PO (13:50)
[2021-02-21] MEDS: pantoprazole DR 40 mg Tablet PO (13:50)
[2021-02-21] MEDS: buPROPion SR (12 HR) 100 mg Tablet PO (13:51)
[2021-02-21 17:20] LABS: Glucose Point of Care 210 mg/dL (70-110)
--- NOTE | 2021-02-21 17:39 | PM.PN ---
Subjective Subjective: Interval history: She feels well denies any complaints. She underwent stress test this morning. Medications: Reviewed: Yes Vitals/I&O/Wt Last Vital Signs Temp 98.3 F 02/21/21 12:00 Pulse 91 02/21/21 13:06 Resp 24 H 02/21/21 12:00 BP 136/99 02/21/21 13:06 Pulse Ox 94 02/21/21 12:00 Weight last 48 hrs Weight 258 lb Weight 257 lb 11.2 oz Weight 256 lb 3.2 oz Weight 280 lb Physical Exam Narrative: EXAM NARRATIVE: GENERAL:Morbidly obese woman laying in bed in no acute distress HEENT: Extraocular movement intact. Pupils equal round reactive to light. No pallor or icterus. NECK: central trachea, No JVD. No carotid bruit. CARDIOVASCULAR SYSTEM: S1-S2 regular. No murmur rubs or gallops. No Reproducible chest pain RESPIRATORY SYSTEM: Chest clear to auscultation. No wheezes rhonchi or rubs heard.No use of accessory muscles. ABDOMEN: Soft, nontender and nondistended. Normal bowel sounds present. EXTREMITIES: No cyanosis or clubbing. No pitting edema. 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 No focal neurological deficits. SKIN: Normal turgor and temperature. PSYCH: Normal insight and judgment. Data : 02/20/21 04:12 02/20/21 04:12 A&P Assessment and plan (1) Chest pain: Chest pain is sharp, fleeting and reproducible. - EKG with minimal ST depression and T wave inversion in V1-V3 and lead III. No changes on subsequent EKG's. Troponins with no delta. -No RWMA -CTA negative for PE -continue ASA and statin. -No ischemia on stress test. Equivocal EKG response due to baseline EKG changes. -Patient is stable to be discharged home from cardiac standpoint. Follow-up in 1 to 2 months in [facility]. Status: Acute Qualifiers: Chest pain type: precordial pain Qualified Code(s): R07.2 - Precordial pain (2) Diabetes type 2, uncontrolled: Status: Chronic Qualifiers: Glycemic state: with hyperglycemia Qualified Code(s): E11.65 - Type 2 diabetes mellitus with hyperglycemia (3) Morbid obesity due to excess calories: Status: Chronic (4) Generalized anxiety disorder: Status: Acute Additional A&P Information Morbid obesity Thank you for allowing me to participate in patient's care. Please feel free to call with questions or concerns. Attestations Medical Necessity Statement*: Stable to be discharged home. Time Spent in Patient Care: 16 - 35 minutes (>than 50% of time spent in counselling and/or direct pt care on unit). Coding Level of Care Code Acute Diversional Therapist'S Assistant for Winifred Garcia Diagnoses Chest pain R07.2 Chest pain type: precordial pain Diabetes type 2, uncontrolled E11.65 Glycemic state: with hyperglycemia Morbid obesity due to excess calories E66.01 Generalized anxiety disorder F41.1
--- NOTE | 2021-02-21 20:31 | PC.NURSE ---
Discharge Note Patient discharged to home via wheelchair accompanied by significant other. Discharge instructions reviewed with patient and/or player services representative. Mobile pharmacy medications and/or prescriptions provided. Belongings/home medications returned.
--- NOTE | 2021-02-21 22:28 | P.DS_ITS ---
Discharge Providers Date of Admission: 02/19/21 23:56 Date of Discharge: February 21, 2021 Attending Provider at Admission: Yany Sow MD Attending Provider at Discharge: Wai Banegas Diagnoses at Discharge Discharge Diagnosis (1) Chest pain: Status: Acute Qualifiers: Chest pain type: precordial pain Qualified Code(s): R07.2 - Precordial pain (2) Diabetes type 2, uncontrolled: Status: Chronic Qualifiers: Glycemic state: with hyperglycemia Qualified Code(s): E11.65 - Type 2 diabetes mellitus with hyperglycemia (3) Morbid obesity due to excess calories: Status: Chronic (4) Generalized anxiety disorder: Status: Acute Reason for Visit Reason for Visit: sharp pain in her heart Hospital Course Hospital Course 40-year-old lady with family history of cardiac disease, history of DM 2, morbid obesity, former smoker, was observed in the hospital after presenting with episodes of chest discomfort, not associated with activity, sometimes occurring at rest, without obvious triggers, occasionally getting heartburn, but not during the most recent episode. CT angiogram of the chest was negative for PE. She was assessed by cardiology. She has been treated with aspirin, statin. Noted minimal ST depression anterior conversion in V1-V3 and lead III. High- sensitivity troponins normal without delta. She underwent additional assessment by echocardiography which showed normal ejection fraction, normal R WMA, normal right ventricular size and systolic function. No significant valvular abnormality. She was assessed by exercise stress testing with finding of good exercise tolerance on EKG portion. Equivocal EKG study due to baseline abnormalities, perfusion scan normal. She remains chest pain-free today, feeling well, and was cleared for discharge and follow-up in office with cardiology. She continues on PPI for heartburn. Due to diabetes, risk factors of CAD, she continues on statin. For now is continued on low-dose aspirin. Please revisit with her at follow-up. Please continue optimization of risk factors of coronary disease, including diabetes and obesity, A1c noted 8.5. Physical Exam Const: COMMON NORMALS: no acute distress and patient oriented x3 HENMT: COMMON NORMALS: oropharynx normal Neck/C-Spine: COMMON NORMALS: no JVD Resp: COMMON NORMALS: normal respiratory effort and clear to auscultation bilaterally AUSCULTATION: clear to auscultation bilaterally Cardio: COMMON NORMALS: no JVD, regular rhythm, S1 normal heart sound present, S2 normal heart sound present and No murmurs present (Cardio) RHYTHM: regular rhythm HEART SOUNDS: S1 normal heart sound present and S2 normal heart sound present GI: COMMON NORMALS: Normal to inspection, nondistended, normoactive bowel sounds present, Soft to palpation and non-tender PALPATION: Yes Soft to palpation Extremity: COMMON NORMALS: no joint enlargement and no pedal edema Neuro: COMMON NORMALS: patient oriented x3 and moves all extremities Skin: COMMON NORMALS: no rashes or lesions noted GENERAL SKIN EXAM: no rashes or lesions noted Discharge Data Data Completed and Pending: Completed Studies During Hospitalization Category Date Time Status CT angio chest PE protcl [id number] Urge nt Cat Scan 02/19/21 21:48 [address] MIBI [Sestamibi Stress Test Reque st Exams 02/21/21 08:35 Completed ] Routine XR chest 1V elma ble [id number] Urgent Exams 02/19/21 21:28 Completed NM sarwat perf SPECT r/s* [id number] Routin e Nuc Med 02/21/21 08:35 Completed CV. echo complete * [id number] Routine Ultrasound 02/20/21 23:45 Completed Labs from last 24 hours 02/21/21 02/21/21 17:16 06:27 POC Glucose 210 H 163 H Vitals: Last Vital Signs Temp 98.9 F 02/21/21 18:03 Pulse 78 02/21/21 18:03 Resp 12 02/21/21 18:03 BP 133/95 02/21/21 18:03 Pulse Ox 95 02/21/21 18:03 Discharge Plan Discharge Patient Disposition: Home Condition: Stable Prescriptions: New atorvastatin 40 mg Tablet 40 mg PO DAILY Qty: 90 RF: 0 aspirin 81 mg Tablet,Delayed Release (Dr/Ec) 81 mg PO DAILY Qty: 90 RF: 0 Continued bupropion HCl [Wellbutrin SR] 100 mg tablet sustained-release 12 hr 100 mg PO QAM Qty: 14 RF: 2 pantoprazole 40 mg tablet,delayed release (DR/EC) 40 mg PO DAILY Qty: 90 RF: 3 (DME) pen needle, diabetic 33 gauge x 5/32 needle See Rx Instructions .ROUTE .MEDSUPPLY Qty: 100 RF: 0 potassium citrate 10 mEq (1,080 mg) tablet extended release 10 meq PO DAILY PRN (Reason: with lasix) RF: 0 Lasix 20 mg tablet 20 mg PO DAILY PRN (Reason: Edema) RF: 0 Ozempic 0.25 mg or 0.5 mg(2 mg/1.5 mL) Pen Injector 0.25 mg SUBCUT Q7D RF: 0 Discharge Orders: Discharge Order (Routine); Ordered 02/21/21 Ordered By: Wai Banegas Referrals: Bart Paz MD [Physician] - 4-7 days (Please call for an follow-up appointment in 4 to 7 days. ) Grace Morris MD [Physician] - 1 month ([facility] will contact you to schedule an follow-up appointment in 1 month. If you haven't heard from them by morning. Please call ) Discharge Diet: Cardiac and Diabetic Discharge Activity: Increase activity as tolerated Patient Instructions: Aspirin (By mouth), Atorvastatin (By mouth), Chest Pain (DC), Chest Pain Stoplight Discharge Attestations Time Spent in Discharge Care*: greater than 30 min Quality Metrics Clinical Quality Measures During this hospital stay, did patient experience: None Coding Level of Care Code Acute Chg FW DC note Diagnoses Chest pain R07.2 Chest pain type: precordial pain Diabetes type 2, uncontrolled E11.65 Glycemic state: with hyperglycemia Morbid obesity due to excess calories E66.01 Generalized anxiety disorder F41.1
--- NOTE | 2021-02-22 12:51 | PC.SOCIAL ---
discharge follow up call made. patient given follow up appointment dates and times. patient filled new medications and she is taking as directed. patient reports she is feeling much better, denies any questions or concerns.
== END 2021-02-21 18:30 | disposition home or self-care (01) ==
LOC: ER 23:42 → CSU 02-20 01:22
PROVIDERS: Student in an Organized Health Care Education/Training Program; Admitting Provider Student in an Organized Health Care Education/Training Program; Emergency Provider Emergency Medicine; Visit Provider Internal Medicine
DX: R07.2 Precordial pain (principal); E11.65 Type 2 diabetes mellitus with hyperglycemia; E66.01 Morbid (severe) obesity due to excess calories; Z68.41 Body mass index [BMI] 40.0-44.9, adult; F41.1 Generalized anxiety disorder; Z87.891 Personal history of nicotine dependence; Z86.16 Personal history of COVID-19; Z87.820 Personal history of traumatic brain injury
CPT/HCPCS: 36416; 71045; 71275; 78452; 80048; 80061; 82962; 83036; 84439; 84443; 84481; 84484; 84703; 85025; 85378; 85610; 85730; 87426; 93005; 93017; 93306; 96372; 99285; A9500; G0378; J1650; J1815; Q9967

== ENCOUNTER → 2021-07-05 07:43 | Outpatient (BNVA) | payer MEDICAID, SELFPAY | PROVIDERS: PCP Nurse Practitioner; Visit Provider Nurse Practitioner Psychiatric/Mental Health | DX: F31.81 Bipolar II disorder (principal); F41.1 Generalized anxiety disorder; Z87.820 Personal history of traumatic brain injury | CPT/HCPCS: 99214 ==

== ENCOUNTER 2021-08-10 09:36 | Emergency (ER) | payer MEDICAID, SELFPAY ==
[2021-08-10 10:35] VITALS: BP 124/85; PULSE 80; RESP 19; TEMP 36.7; O2SAT 97; BMI 43.5
--- NOTE | 2021-08-10 11:17 | XR_ITS ---
WS: [id number] Portable AP upright chest, 08/10/2021 Clinical Data: chest pain Comparison: Portable chest, 02/19/2021. Findings: No nodules, masses or effusions are seen. The heart is normal. The pulmonary vascularity is not increased. No pneumonia or pneumothorax is seen. XR/XR chest 1V portable [id number] Impression: Negative chest.
--- NOTE | 2021-08-10 11:24 | W.ED.SOB ---
HPI - SOB/Dyspnea General: Chief Complaint: Upper Respiratory Infection Stated Complaint: Chest pain burning lungs Time Seen by Provider: 08/10/21 11:23 History of Present Illness: HPI Narrative: Ms Rodriguez is a 40-year-old lady with no pertinent past medical history presents emergency department to shortness of breath and malaise. She reports approximately 3 to 4 weeks ago rapid Covid for which she had been improved however over the past 3 to 4 days has had gradual onset generalized symptoms. She endorses malaise, congestion and upper respiratory symptoms which started her illness, and subsequently now breathlessness and dry cough. Intensity symptoms is moderate. There are no specific exacerbating relieving factors identified. She has tried [id number] medications without significant relief. She has had pneumonia and bronchitis previously but feels that this is somewhat different and more like a combination of the 2. She does have sick contacts even outside of Covid. No other specific changes in health, exacerbating, or relieving factors identified. No history of lung disease or heart disease. Onset (ago): day(s) Context: recent illness Timing: progressively worsening Severity: moderate Exacerbating factors: nothing Relieving factors: nothing Associated symptoms: Reports cough and nausea Treatment prior to arrival: other Review of Systems General: Reports: 10 or more systems reviewed and unremarkable except in HPI and below GI: Reports: nausea PFSH ED PFSH: Medical History Abnormal ECG Bipolar II disorder COVID-30 Jul 2020 Diabetes type 2, uncontrolled Generalized anxiety disorder GERD (gastroesophageal reflux disease) Morbid obesity due to excess calories Personal history of traumatic brain injury Surgical History Ectopic Lost left tube has right tube Family History Other Cancer Chronic kidney disease (CKD) Clotting disorder Diabetes Hypertension Stroke Suicide Denies family history of CAD (coronary artery disease) Social History Smoking and tobacco status: never smoked Second hand smoke exposure: No Smoking risk assessment/counseling performed?: No Alcohol intake: current Alcohol intake frequency: holidays/special occasions only Desire information about alcohol rehabilitation?: No Counseling given: No Desire information about substance/drug rehabilitation?: No Counseling given: No Adopted: No Caregiver/support person: No Lives independently: Yes Housing: House Marital status: Single Number of children: 3 Highest education level completed: High School Graduate service: No Current occupational status: employed 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 Pets and animals: Yes History of recent travel: No Current gender identity: Female Female Reproductive History: Date of last menstrual period: 02/15/21 Physical Exam Const: COMMON NORMALS: alert GENERAL APPEARANCE: cooperative and well developed HENMT: COMMON NORMALS: normocephalic and atraumatic HEAD & SCALP: normocephalic and atraumatic Eye: COMMON NORMALS: conjunctivae normal CONJUNCTIVA: Yes conjunctivae normal SCLERA: sclerae normal Neck/C-Spine: COMMON NORMALS: supple GENERAL: Yes trachea midline Resp: COMMON NORMALS: normal respiratory effort and clear to auscultation bilaterally EFFORT & INSPECTION: Yes able to speak in complete sentences AUSCULTATION: clear to auscultation bilaterally Cardio: COMMON NORMALS: regular rate and regular rhythm RATE: regular rate RHYTHM: regular rhythm GI: COMMON NORMALS: Soft to palpation PALPATION: Yes Soft to palpation and No Tenderness to palpation present (GI) PERCUSSION: normal to percussion Extremity: GENERAL: Yes normal exam except as noted and No edema Neuro: COMMON NORMALS: moves all extremities SENSORIUM/ORIENTATION: Yes alert and No Orientation impaired Psych: COMMON NORMALS: mental status grossly normal and Normal thought process present THOUGHT PROCESS: Normal thought process present Course ED course: - Patient was seen and evaluated by me at bedside - Patient placed on cardiac monitors, IV access obtained - Initial evaluation notable for exam as above - IV fluids ordered - Labs notable for no significant hematologic or metabolic abnormality. - Imaging notable for no lobar consolidation - Upon serial reexamination after treatment the patient was mildly improved - Based on patient history, evaluation, labs, and imaging as interpreted the most likely cause of the patient's condition is pneumonia. Given worsening after improvement there is concern for atypical bacterial infection, antibiotics will be prescribed. - The results of ED evaluation were discussed with the patient including prescriptions and/or symptomatic cares (if applicable) including appropriate and responsible use, followup plan, and return precautions. The patient verbalized understanding and felt safe for discharge. - Patient discharged in satisfactory condition. Note: Click bubbles or prepopulated august in note writing are used for assistance with data collection and billing and are inherently more limited than narrative and other text portions of this note. Please use narrative for additional clinical history and defer to narrative/free test for any case of contradictory information. If information appears in only free text or click bubble it should be considered present or absent as reported. Please contact note junior underwriter for clarifications of clinical information or contradictory information. MDM is a brief summary, contradictory or erroneous seeming information should be clarified and full note should be reviewed. Vital Signs: Vital signs: Vital Signs Temperature 98.1 F 08/10/21 10:35 Pulse Rate 80 08/10/21 10:35 Respiratory Rate 19 H 08/10/21 10:35 Blood Pressure 124/85 08/10/21 10:35 Pulse Oximetry 97 08/10/21 10:35 MDM - SOB/Dyspnea Medical Decision Making 40-year-old lady with history of COVID presenting with worsening respiratory symptoms after improvement. Patient is not requiring oxygen. Labs and imaging without significant abnormality requiring intervention. I will plan to treat for atypical/secondary bacterial infection, satisfactory for outpatient treatment. Medical Records I reviewed the patient's medical records. Lab Data I reviewed the patient's lab results. : 08/10/21 12:11 08/10/21 12:11 Labs/Radiology: Radiology Impressions Chest X-Ray 08/10/21 11:17 Impression: Negative chest. Laboratory Results WBC 8.5 10^3/uL (4.0-10.0) 08/10/21 12:11 RBC 4.44 10^6/uL (4.1-5.3) 08/10/21 12:11 Hgb 12.8 g/dL (11.5-15.3) 08/10/21 12:11 Hct 39.5 % (37.0-47.0) 08/10/21 12:11 MCV 89.0 fl (81-99) 08/10/21 12:11 MCH 28.8 pg (28.0-34.0) 08/10/21 12:11 MCHC 32.4 g/dL (30.0-36.0) 08/10/21 12:11 RDW 12.4 % (12.1-15.1) 08/10/21 12:11 Plt Count 259 10^3/cmm (130-400) 08/10/21 12:11 MPV 11.1 fL (7.4-10.4) H 08/10/21 12:11 Neut % (Auto) 66.2 % 08/10/21 12:11 Lymph % (Auto) 26.7 % 08/10/21 12:11 [place] % (Auto) 3.9 % 08/10/21 12:11 Eos % (Auto) 1.3 % 08/10/21 12:11 Baso % (Auto) 0.6 % 08/10/21 12:11 Neut # (Auto) 5.60 10^3/uL (1.8-7.7) 08/10/21 12:11 Lymph # (Auto) 2.3 10^3/uL (0.8-4.8) 08/10/21 12:11 [place] # (Auto) 0.3 10^3/uL (0.2-0.9) 08/10/21 12:11 Eos # (Auto) 0.1 10^3/uL (0.0-0.8) 08/10/21 12:11 Baso # (Auto) 0.1 10^3/uL (0.0-0.1) 08/10/21 12:11 Nucleated RBC % (auto) 0 % 08/10/21 12:11 Nucleated RBCs # 0.0 /100WBC 08/10/21 12:11 Sodium 140 mmol/L (136-145) 08/10/21 12:11 Potassium 4.3 mmol/L (3.5-5.1) 08/10/21 12:11 Chloride 101 mmol/L (98-107) 08/10/21 12:11 Carbon Dioxide 27 mmol/L (22-29) 08/10/21 12:11 Anion Gap 16.3 (5-19) 08/10/21 12:11 BUN 7 mg/dL (6-20) 08/10/21 12:11 Creatinine 0.6 mg/dL (0.5-0.9) 08/10/21 12:11 GFR Calculation 110.7 mL/min (90-130) 08/10/21 12:11 Glucose 218 mg/dL (65-115) H 08/10/21 12:11 Calculated Osmolality 295 mOsm/kg (285-295) 08/10/21 12:11 Calcium 8.8 mg/dL (8.5-10.5) 08/10/21 12:11 Total Bilirubin 0.4 mg/dL (0.15-1.2) 08/10/21 12:11 AST 21 U/L (0-32) 08/10/21 12:11 ALT 26 U/L (0-33) 08/10/21 12:11 Alkaline Phosphatase 96 IU/L (35-105) 08/10/21 12:11 Total Protein 7.2 g/dL (6.6-8.7) 08/10/21 12:11 Albumin 4.7 g/dL (3.5-5.2) 08/10/21 12:11 Globulin 2.5 g/dL (1.3-4.6) 08/10/21 12:11 EKG Data EKG 1: I personally reviewed and interpreted this EKG as follows: EKG Interpretation Date: 08/10/21 EKG interpretation time: 12:20 Interpretation: Twelve-lead EKG shows regular rhythm at a rate of 79. IA interval 163, QRS duration 91, QTc 447. Normal axis. Interpretation: Sinus rhythm. Nonspecific ST segment abnormalities more prominent than prior. Patient had technetium 99 myocardial stress testing in 02/2021. Discharge Plan Discharge Patient Disposition: Home Clinical Impression: URI (upper respiratory infection), Pneumonia Condition: Stable Prescriptions: New azithromycin 250 mg tablet See Rx Instructions .ROUTE .COMPLEX Qty: 6 0RF Rx Instructions: For 250 mg dose pack: take 500 mg today (day 1), then 250 mg for 4 days (days 2-5) No Action bupropion HCl [Wellbutrin SR] 100 mg tablet sustained-release 12 hr 100 mg PO QAM Qty: 30 3RF Rx Instructions: Take one tablet every morning (DME) pen needle, diabetic 33 gauge x 5/32 needle See Rx Instructions .ROUTE .MEDSUPPLY Qty: 100 0RF Rx Instructions: daily pantoprazole 40 mg tablet,delayed release (DR/EC) See Rx Instructions .ROUTE .COMPLEX Qty: 90 0RF Dose Instruction: TAKE 1 TABLET BY MOUTH DAILY Rx Instructions: TAKE 1 TABLET BY MOUTH DAILY potassium citrate 10 mEq (1,080 mg) tablet extended release 10 meq PO DAILY PRN (Reason: with lasix) 0RF Lasix 20 mg tablet 20 mg PO DAILY PRN (Reason: Edema) 0RF Ozempic 0.25 mg or 0.5 mg(2 mg/1.5 mL) Pen Injector 0.25 mg SUBCUT Q7D 0RF Rx Instructions: x 30 days then increase to 0.5mg Q7D atorvastatin 40 mg Tablet 40 mg PO DAILY Qty: 90 0RF aspirin 81 mg Tablet,Delayed Release (Dr/Ec) 81 mg PO DAILY Qty: 90 0RF Discharge Orders: Discharge ED (Routine); Ordered 08/10/21 Ordered By: Timoteo Carcamo Referrals: Olga Galan FNP [Primary Care Provider] - Discharge Diet: Usual diet Discharge Activity: Resume usual activity Patient Instructions: Upper Respiratory Infection (ED), Pneumonia (ED) Activity Restrictions/Additional Instructions: Thank you for visiting the emergency department. You were seen and evaluated for respiratory symptoms. The exact cause of your symptoms is unclear however given your recent history of Covid and improvement followed by worsening you will be treated for atypical infections. Please follow-up with your primary care provider. Please return to the emergency department for worsening symptoms, oxygen saturation at rest less than 90%, or anything else that you are concerned about a feel needs emergency department evaluation. 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
--- NOTE | 2021-08-10 11:31 | ECG_ITS ---
[facility] Test Date: 2021-08-10 Pat Name: Kin Rodriguez Department: Room: Gender: Female Mother Baby Rn: : 1980 Requested By: Timoteo Carcamo Order Number: [id number] Keon MD: Omar Sherwood M.D. Measurements Intervals [place] Rate: 79 P: 28 [place]: 163 QRS: -5 QRSD: 91 T: -47 QT: 413 QTc: 474 Interpretive Statements SINUS RHYTHM LOW QRS VOLTAGE IN PRECORDIAL LEADS [QRS DEFLECTION < 1.0 mV IN CHEST LEADS] PATTERN CONSISTENT WITH PULMONARY DISEASE ST DEVIATION AND MODERATE T-WAVE ABNORMALITY, CONSIDER ANTERIOR ISCHEMIA [-0.1+ mV T-WAVE IN V3/V4] Compared to ECG 02/20/2021 04:19:58 No significant changes Electronically Signed On 08-10-2021 16:04:44 HEAVY FORGER by Omar Sherwood M.D. [id number]
[2021-08-10] MEDS: sodium chloride 0.9% 1,000 ML 999 ML IV (12:00)
[2021-08-10 12:16] LABS: Basophils # 0.1 10^3/uL (0.0-0.1); Basophils % 0.6 %; Eosinophils # 0.1 10^3/uL (0.0-0.8); Eosinophils % 1.3 %; Hematocrit 39.5 % (37.0-47.0); Hemoglobin 12.8 g/dL (11.5-15.3); Lymphocytes # 2.3 10^3/uL (0.8-4.8); Lymphocytes % 26.7 %; Mean Corpuscular HGB Conc 32.4 g/dL (30.0-36.0); Mean Corpuscular Hemoglobin 28.8 pg (28.0-34.0); Mean Platelet Volume 11.1 fL (7.4-10.4); Monocytes # 0.3 10^3/uL (0.2-0.9); Monocytes % 3.9 %; Neutrophils % 66.2 %; Nucleated Red Blood Cells % 0 %; Platelet Count 259 10^3/cmm (130-400); Red Blood Count 4.44 10^6/uL (4.1-5.3); Red Cell Distribution Width 12.4 % (12.1-15.1); White Blood Count 8.5 10^3/uL (4.0-10.0)
[2021-08-10 12:45] LABS: Alanine Aminotransferase 26 U/L (0-33); Albumin Level 4.7 g/dL (3.5-5.2); Alkaline Phosphatase 96 IU/L (35-105); Anion Gap 16.3 (5-19); Aspartate Amino Transferase 21 U/L (0-32); Blood Urea Nitrogen 7 mg/dL (6-20); Calcium 8.8 mg/dL (8.5-10.5); Carbon Dioxide 27 mmol/L (22-29); Chloride 101 mmol/L (98-107); Creatinine Clr Calc Pharmacy 166.3954; Globulin 2.5 g/dL (1.3-4.6); Glomerular Filtration Rate 110.7 mL/min (90-130); Glucose 218 mg/dL (65-115); Osmolality Calculated 295 mOsm/kg (285-295); Potassium 4.3 mmol/L (3.5-5.1); Sodium 140 mmol/L (136-145); Total Bilirubin 0.4 mg/dL (0.15-1.2); Total Protein 7.2 g/dL (6.6-8.7)
== END 2021-08-10 13:22 | disposition home or self-care (01) ==
PROVIDERS: Emergency Provider Emergency Medicine; PCP Nurse Practitioner
DX: J06.9 Acute upper respiratory infection, unspecified (principal); J18.9 Pneumonia, unspecified organism; Z79.82 Long term (current) use of aspirin; E11.9 Type 2 diabetes mellitus without complications
CPT/HCPCS: 71045; 80053; 85025; 93005; 96360; 99283; J7030

== ENCOUNTER 2021-09-28 20:02 | Emergency (ER) | payer MEDICAID, SELFPAY ==
[2021-09-28 20:41] VITALS: BP 138/78; PULSE 90; RESP 14; TEMP 37.1; O2SAT 99; BMI 43.5
--- NOTE | 2021-09-28 20:51 | W.ED.GENADLT ---
HPI - General Adult General: Chief complaint: General Medical Stated complaint: wanting blood pregancey test Time Seen by Provider: 09/28/21 20:51 History of Present Illness: 41-year-old female comes in today for concerns of a positive test from home. Patient had a picture of a test that showed a very very faint line for positive. Patient denies any significant bleeding or abdominal pain. Patient does have a history of an ectopic with removal of the fallopian tube. Patient does not use any routine control. Associated symptoms: Reports nausea; Deny vomiting Review of Systems General: Reports: 10 or more systems reviewed and unremarkable except in HPI and below Const: Denies: fever(s) GI: Reports: nausea; Denies: vomiting : Denies: vaginal bleeding Musc: Denies: neck pain or back pain [facility] ED PFSH: Medical History (Updated 09/28/21 @ 21:52 by ELY Bond) Abnormal ECG Bipolar II disorder COVID-30 Jul 2020 Diabetes type 2, uncontrolled Generalized anxiety disorder GERD (gastroesophageal reflux disease) Morbid obesity due to excess calories Personal history of traumatic brain injury Surgical History Ectopic Lost left tube has right tube Family History Other Cancer Chronic kidney disease (CKD) Clotting disorder Diabetes Hypertension Stroke Suicide Denies family history of CAD (coronary artery disease) Social History Smoking and tobacco status: never smoked Second hand smoke exposure: No Smoking risk assessment/counseling performed?: No Alcohol intake: current Alcohol intake frequency: holidays/special occasions only Desire information about alcohol rehabilitation?: No Counseling given: No Desire information about substance/drug rehabilitation?: No Counseling given: No Adopted: No Caregiver/support person: No Lives independently: Yes Housing: House Marital status: Single Number of children: 3 Highest education level completed: High School Graduate service: No Current occupational status: employed 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 Pets and animals: Yes History of recent travel: No Current gender identity: Female Female Reproductive History: Date of last menstrual period: 02/15/21 Physical Exam Const: COMMON NORMALS: alert Resp: COMMON NORMALS: normal respiratory effort and clear to auscultation bilaterally AUSCULTATION: clear to auscultation bilaterally Cardio: COMMON NORMALS: regular rate RATE: regular rate GI: COMMON NORMALS: non-tender Extremity: COMMON NORMALS: normal to inspection Neuro: SENSORIUM/ORIENTATION: Yes alert Skin: COMMON NORMALS: no rashes or lesions noted GENERAL SKIN EXAM: no rashes or lesions noted Course Vital Signs: Vital signs: Vital Signs Temperature 98.8 F 09/28/21 20:41 Pulse Rate 90 09/28/21 20:41 Respiratory Rate 14 09/28/21 20:41 Blood Pressure 138/78 09/28/21 20:41 Pulse Oximetry 99 09/28/21 20:41 [facility] - General Adult Medical Decision Making 41-year-old female comes in today with a likely positive home test. Patient is concerned that she may be and has a history of ectopic . Patient denies any pain or discomfort. Patient reports no heavy bleeding. Exam was unremarkable. Differential diagnosis includes but not limited to abnormal test result on , irregular menstruation, malingering. Serum hCG test was negative. Remainder of labs were normal. Reviewed exam with patient recommendations for follow-up with primary care return to the ER for high fever, and increased abdominal pain. Patient reported understanding agreed to plan. Lab Data : 09/28/21 21:09/28/21: Laboratory Results WBC 9.9 10^3/uL (4.0-10.0) 09/28/21: RBC 4.41 10^6/uL (4.1-5.3) 09/28/21: Hgb 12.7 g/dL (11.5-15.3) 09/28/21: Hct 37.9 % (37.0-47.0) 09/28/21: MCV 85.9 fl (81-99) 09/28/21: MCH 28.8 pg (28.0-34.0) 09/28/21: MCHC 33.5 g/dL (30.0-36.0) 09/28/21 21: RDW 12.6 % (12.1-15.1) 09/28/21: Plt Count 241 10^3/cmm (130-400) 09/28/21: MPV 11.3 fL (7.4-10.4) H 09/28/21 21:25 Neut % (Auto) 59.1 % 09/28/21 21: Lymph % (Auto) 32.9 % 09/28/21 21: [place] % (Auto) 4.2 % 09/28/21 21: Eos % (Auto) 1.7 % 09/28/21 21: Baso % (Auto) 1.0 % 09/28/21: Neut # (Auto) 5.86 10^3/uL (1.8-7.7) 09/28/21: Lymph # (Auto) 3.3 10^3/uL (0.8-4.8) 09/28/21: [place] # (Auto) 0.4 10^3/uL (0.2-0.9) 09/28/21: Eos # (Auto) 0.2 10^3/uL (0.0-0.8) 09/28/21: Baso # (Auto) 0.1 10^3/uL (0.0-0.1) 09/28/21: Nucleated RBC % (auto) 0 % 09/28/21: Nucleated RBCs # 0.0 /100WBC 09/28/21 21:25 Sodium 136 mmol/L (136-145) 09/28/21 21: Potassium 3.4 mmol/L (3.5-5.1) L 09/28/21 21: Chloride 98 mmol/L (98-107) 09/28/21: Carbon Dioxide 25 mmol/L (22-29) 09/28/21 21: Anion Gap 16.4 (5-19) 09/28/21 21:25 BUN 8 mg/dL (6-20) 09/28/21 21: Creatinine 0.6 mg/dL (0.5-0.9) 09/28/21: GFR Calculation 110.2 mL/min (90-130) 09/28/21 21:25 Glucose 282 mg/dL (65-115) H 09/28/21 21:25 Calculated Osmolality 291 mOsm/kg (285-295) 09/28/21 21:25 Calcium 9.2 mg/dL (8.5-10.5) 09/28/21 21:25 Total Bilirubin 0.2 mg/dL (0.15-1.2) 09/28/21 21:25 AST 16 U/L (0-32) 09/28/21 21:25 ALT 15 U/L (0-33) 09/28/21 21:25 Alkaline Phosphatase 86 IU/L (35-105) 09/28/21 21:25 Total Protein 6.6 g/dL (6.6-8.7) 09/28/21 21:25 Albumin 4.3 g/dL (3.5-5.2) 09/28/21 21:25 Globulin 2.3 g/dL (1.3-4.6) 09/28/21 21: Lipase 26 U/L (13-60) 09/28/21 21:25 HCG, Qual Negative (Negative) 09/28/21 21:25 Discharge Plan Discharge Patient Disposition: Home Clinical Impression: Irregular menstrual cycle Fatigue Qualifiers: Fatigue type: unspecified Qualified Code(s): R53.83 - Other fatigue Condition: Stable Prescriptions: No Action bupropion HCl [Wellbutrin SR] 100 mg tablet sustained-release 12 hr 100 mg PO QAM Qty: 30 3RF Rx Instructions: Take one tablet every morning [place] 24,000-76,000 -120,000 unit capsule,delayed release(DR/EC) 1 cap PO TID Qty: 90 3RF Rx Instructions: administer with meals and/or snacks (DME) pen needle, diabetic 33 gauge x 5/32 needle See Rx Instructions .ROUTE .MEDSUPPLY Qty: 100 0RF Rx Instructions: daily pantoprazole 40 mg tablet,delayed release (DR/EC) See Rx Instructions .ROUTE .COMPLEX Qty: 90 0RF Dose Instruction: TAKE 1 TABLET BY MOUTH DAILY Rx Instructions: TAKE 1 TABLET BY MOUTH DAILY azithromycin 250 mg tablet See Rx Instructions .ROUTE .COMPLEX Qty: 6 0RF Rx Instructions: For 250 mg dose pack: take 500 mg today (day 1), then 250 mg for 4 days (days 2-5) potassium citrate 10 mEq (1,080 mg) tablet extended release 10 meq PO DAILY PRN (Reason: with lasix) 0RF Lasix 20 mg tablet 20 mg PO DAILY PRN (Reason: Edema) 0RF Ozempic 0.25 mg or 0.5 mg(2 mg/1.5 mL) Pen Injector 0.25 mg SUBCUT Q7D 0RF Rx Instructions: x 30 days then increase to 0.5mg Q7D atorvastatin 40 mg Tablet 40 mg PO DAILY Qty: 90 0RF aspirin 81 mg Tablet,Delayed Release (Dr/Ec) 81 mg PO DAILY Qty: 90 0RF Discharge Orders: Discharge ED (Routine); Ordered 09/28/21 Ordered By: Bill Iverson Referrals: Olga Galan FNP [Primary Care Provider] - Discharge Diet: Usual diet Discharge Activity: Increase activity as tolerated Patient Instructions: Abnormal (Dysfunctional) Uterine Bleeding (ED) Activity Restrictions/Additional Instructions: Drink plenty of fluids. Use acetaminophen and ibuprofen for pain and discomfort. Follow-up with primary care for further instructions. Return to ER for new concerns. Coding Level of Care Code ED Reference Investigator for Winifred Fwd Exam Detailed
[2021-09-28 21:28] LABS: Basophils # 0.1 10^3/uL (0.0-0.1); Eosinophils # 0.2 10^3/uL (0.0-0.8); Eosinophils % 1.7 %; Hematocrit 37.9 % (37.0-47.0); Hemoglobin 12.7 g/dL (11.5-15.3); Lymphocytes # 3.3 10^3/uL (0.8-4.8); Lymphocytes % 32.9 %; Mean Corpuscular HGB Conc 33.5 g/dL (30.0-36.0); Mean Corpuscular Hemoglobin 28.8 pg (28.0-34.0); Mean Corpuscular Volume 85.9 fl (81-99); Mean Platelet Volume 11.3 fL (7.4-10.4); Monocytes # 0.4 10^3/uL (0.2-0.9); Monocytes % 4.2 %; Neutrophils # 5.86 10^3/uL (1.8-7.7); Neutrophils % 59.1 %; Nucleated Red Blood Cells % 0 %; Platelet Count 241 10^3/cmm (130-400); Red Blood Count 4.41 10^6/uL (4.1-5.3); Red Cell Distribution Width 12.6 % (12.1-15.1); White Blood Count 9.9 10^3/uL (4.0-10.0)
[2021-09-28 21:46] LABS: HCG, Serum Qual Negative (Negative)
[2021-09-28 21:52] LABS: Alanine Aminotransferase 15 U/L (0-33); Albumin Level 4.3 g/dL (3.5-5.2); Alkaline Phosphatase 86 IU/L (35-105); Anion Gap 16.4 (5-19); Aspartate Amino Transferase 16 U/L (0-32); Blood Urea Nitrogen 8 mg/dL (6-20); Calcium 9.2 mg/dL (8.5-10.5); Carbon Dioxide 25 mmol/L (22-29); Chloride 98 mmol/L (98-107); Globulin 2.3 g/dL (1.3-4.6); Glomerular Filtration Rate 110.2 mL/min (90-130); Glucose 282 mg/dL (65-115); Lipase 26 U/L (13-60); Osmolality Calculated 291 mOsm/kg (285-295); Potassium 3.4 mmol/L (3.5-5.1); Sodium 136 mmol/L (136-145); Total Bilirubin 0.2 mg/dL (0.15-1.2); Total Protein 6.6 g/dL (6.6-8.7)
[2021-09-28 22:11] VITALS: BP 128/78; PULSE 88; RESP 18; O2SAT 97
== END 2021-09-28 22:11 | disposition home or self-care (01) ==
PROVIDERS: Emergency Medicine; Emergency Provider Nurse Practitioner Family; PCP Nurse Practitioner
DX: Z32.02 Encounter for pregnancy test, result negative (principal); N92.6 Irregular menstruation, unspecified
CPT/HCPCS: 80053; 83690; 84703; 85025; 99282

== ENCOUNTER 2021-09-29 15:50 | Outpatient (CLI) | payer MEDICAID, SELFPAY | END 2021-09-29 15:51 | disposition home or self-care (01) | LOC: LAB 15:53 | PROVIDERS: PCP Nurse Practitioner; Visit Provider Nurse Practitioner Women's Health | DX: Z32.00 Encounter for pregnancy test, result unknown (principal) | CPT/HCPCS: 84702 ==

== ENCOUNTER 2022-01-25 16:21 | Emergency (ER) | payer MEDICAID, SELFPAY ==
[2022-01-25 16:34] VITALS: BP 114/77; PULSE 90; RESP 18; TEMP 37.1; O2SAT 98; BMI 41.9
--- NOTE | 2022-01-25 16:45 | ECG_ITS ---
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 Measurements Intervals [place] Rate: 93 P: 48 [place]: 183 QRS: 71 QRSD: 88 T: 30 QT: 358 QTc: 446 Interpretive Statements SINUS RHYTHM ST DEVIATION AND MODERATE T-WAVE ABNORMALITY, CONSIDER ANTERIOR ISCHEMIA [-0.1+ mV T-WAVE IN V3/V4] Compared to ECG 08/10/2021 12:18:03 No significant changes Electronically Signed On 01-25-2022 17:16:38 CDT by Omar Sherwood M.D. [id number]
--- NOTE | 2022-01-25 18:19 | ED_ITS ---
HPI - General Adult General: Chief complaint: Extremity Injury, Upper Stated complaint: right arm pain Time Seen by Provider: 01/25/22 17:57 Source: patient Mode of arrival: ambulatory Limitations: no limitations History of Present Illness: Patient is a 41-year-old female here for multiple medical complaints. Patient tells me approximately 2 weeks ago they increased her Ozempic dose to 1mg. She states since that time she has had abdominal pain and constipation. She states her last bowel movement was 4 to 5 days ago. She is passing flatulence. She is not having any nausea or vomiting. She states her kidneys have been hurting was told that Ozempic could cause damage to her kidneys. He is reporting pain to her bilateral flanks. She denies dysuria, frequency, urgency. She is also complaining of some pelvic pain and vaginal discharge. She states she was diagnosed with trichomonas in November and underwent treatment for this and had a test of cure that showed she had eradicated the infection. She has not had any sexual encounters since then but is still complaining of vaginal discharge. She believes she might be going through early menopause. She states today at work she began having right shoulder pain and was unable to reach above and grab an object with the arm. She states this complaint has improved and she is now reporting full range of motion of the arm but still has some mild discomfort to the shoulder. No known injury or trauma. Denies sensory abnormalities. Onset (ago): unknown (chronicity differs based on complaint) Associated symptoms: Deny chest pain, dyspnea, headache(s), malaise, nausea, tennille h, palpitations, syncope or vomiting Treatments prior to arrival: none Review of Systems Const: Denies: fever(s), chills, body aches, fatigue or malaise Eyes: Denies: change in vision or blurry vision Card: Denies: chest pain, palpitations, irregular heart rhythm, lightheadedness, syncope or dyspnea on exertion Resp: Denies: dyspnea, productive cough or pain on inspiration GI: Reports: abdominal pain and constipation; Denies: nausea, vomiting, heartburn, diarrhea, pain on defecation, hematochezia or melena : Denies: flank pain or dysuria Musc: Reports: joint pain (R shoulder); Denies: neck pain, back pain, extremity pain, extremity swelling, joint swelling, joint redness, joint warmth or limited range of motion Skin/Breast: Denies: rash Neuro: Denies: headache(s), numbness in extremities, weakness in extremities, sensory changes or dizziness PFSH ED PFSH: Medical History Abnormal ECG Bipolar II disorder COVID-30 Jul 2020 Diabetes type 2, uncontrolled Generalized anxiety disorder GERD (gastroesophageal reflux disease) Morbid obesity due to excess calories Personal history of traumatic brain injury Surgical History Ectopic Lost left tube has right tube Family History Other Cancer Chronic kidney disease (CKD) Clotting disorder Diabetes Hypertension Stroke Suicide Denies family history of CAD (coronary artery disease) Social History Smoking and tobacco status: never smoked Second hand smoke exposure: No Smoking risk assessment/counseling performed?: No Alcohol intake: current Alcohol intake frequency: holidays/special occasions only Desire information about alcohol rehabilitation?: No Counseling given: No Desire information about substance/drug rehabilitation?: No Counseling given: No Adopted: No Caregiver/support person: No Lives independently: Yes Housing: House Marital status: Single Number of children: 3 Highest education level completed: High School Graduate service: No Current occupational status: employed 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 Pets and animals: Yes History of recent travel: No Current gender identity: Female Female Reproductive History: Date of last menstrual period: 02/15/21 Physical Exam Const: COMMON NORMALS: no acute distress, patient oriented x3, no limitations and alert GENERAL APPEARANCE: cooperative NUTRITIONAL APPEARANCE: obese ORIENTATION/CONSCIOUSNESS: Yes awake, Yes oriented to person, Yes oriented to place and Yes oriented to time HENMT: COMMON NORMALS: normocephalic and atraumatic HEAD & SCALP: normal to inspection, normocephalic and atraumatic Neck/C-Spine: COMMON NORMALS: full ROM, no lymphadenopathy, supple and no meningeal signs Resp: COMMON NORMALS: normal respiratory effort and clear to auscultation bila terally AUSCULTATION: clear to auscultation bilaterally Cardio: COMMON NORMALS: regular rate and regular rhythm RATE: regular rate RHYTHM: regular rhythm GI: COMMON NORMALS: Normal to inspection, nondistended, normoactive bowel sounds present, Soft to palpation, No hepatosplenomegaly present and no masses INSPECTION: Yes normal to inspection AUSCULTATION: Yes normoactive bowel sounds PALPATION: Yes Soft to palpation, Yes Tenderness to palpation present (GI) (mild throughout lower abdomen; non-surgical exam), No Guarding due to palpation present (GI), No Rigid due to palpation and Yes No hepatosplenomegaly present : COMMON NORMALS: Yes no CVA tenderness BLADDER/KIDNEY EXAM: Yes no CVA tenderness OTHER: pelvic deferred-patient requests self collect method for swabs Back/Pelvis: COMMON NORMALS: no CVA tenderness, thoracic and lumbar spine normal to inspection, no thoracic nor lumbar tenderness and thoraco-lumbar ROM normal Extremity: COMMON NORMALS: normal to inspection and full ROM GENERAL: Yes normal exam except as noted Neuro: ALYCIA COMA SCALE: document GCS findings Alycia coma scale eye opening: Spontaneous Alycia coma scale verbal response: Orientated Alycia coma scale motor response: Obey commands [place] coma scale total score: 15 COMMON NORMALS: patient oriented x3, CN's II-XII intact bilaterally, moves all extremities, no focal motor deficits, no sensory deficits noted and gait normal SENSORIUM/ORIENTATION: Yes alert, Yes oriented to person, Yes oriented to place and Yes oriented to time MENINGEAL SIGNS: Yes no meningeal signs SPEECH: speech normal GAIT: Yes Normal gait present SENSORY EXAM: Yes other (sensory normal) MOTOR EXAM: 5/5 motor strength present throughout Skin: COMMON NORMALS: no rashes or lesions noted GENERAL SKIN EXAM: no rashes or lesions noted TRAUMA: no lacerations or abrasions Course Vital Signs: Vital signs: Vital Signs Temperature 98.8 F 01/25/22 16:34 Pulse Rate 90 01/25/22 16:34 Respiratory Rate 18 01/25/22 16:34 Blood Pressure 114/77 01/25/22 16:34 Pulse Oximetry 98 01/25/22 16:34 Oxygen Delivery Me thod 01/25/22 16:34 [facility] - General Adult Medical Decision Making Patient here with multiple medical complaints. She is complaining of some abdominal pain and constipation. This is most likely secondary to her Ozempic as this is a very common side effect. Her abdomen is nonsurgical on palpation. She is passing flatulence. She complains of some vaginal discharge. Deferred pelvic exam. Had negative test of cure several months ago and has not had intercourse since. Gonorrhea, chlamydia, and wet prep swabs were obtained. Her wet prep is normal. I do not have any concerns based on her history for gonorrhea or chlamydia. Her UA is positive for infection with 2+ leuks, 40-55 WBCs and 3+ bacteria. This could also explain the flank pain she was complaini ng of as well as her lower abdominal/pelvic pain. He was given IM Rocephin and will be discharged on cefdinir to cover for UTI/pyelo. At this time I think patient is stable for discharge from an emergency standpoint. I did recommend she follow-up with primary care later this week or early next week for reevaluation. Return to ED precautions given. Lab Data : 01/25/22 18:30 01/25/22 18:30 Laboratory Results WBC 10.0 10^3/uL (4.0-10.0) 01/25/22 18:30 RBC 4.87 10^6/uL (4.1-5.3) 01/25/22 18:30 Hgb 13.6 g/dL (11.5-15.3) 01/25/22 18:30 Hct 43.2 % (37.0-47.0) 01/25/22 18:30 MCV 88.7 fl (81-99) 01/25/22 18:30 MCH 27.9 pg (28.0-34.0) L 01/25/22 18:30 MCHC 31.5 g/dL (30.0-36.0) 01/25/22 18:30 RDW 13.1 % (12.1-15.1) 01/25/22 18:30 Plt Count 284 10^3/cmm (130-400) 01/25/22 18:30 MPV 10.7 fL (7.4-10.4) H 01/25/22 18:30 Neut % (Auto) 68.4 % 01/25/22 18:30 Lymph % (Auto) 25.9 % 01/25/22 18:30 [place] % (Auto) 3.4 % 01/25/22 18:30 Eos % (Auto) 0.8 % 01/25/22 18:30 Baso % (Auto) 0.7 % 01/25/22 18:30 Neut # (Auto) 6.81 10^3/uL (1.8-7.7) 01/25/22 18:30 Lymph # (Auto) 2.6 10^3/uL (0.8-4.8) 01/25/22 18:30 [place] # (Auto) 0.3 10^3/uL (0.2-0.9) 01/25/22 18:30 Eos # (Auto) 0.1 10^3/uL (0.0-0.8) 01/25/22 18:30 Baso # (Auto) 0.1 10^3/uL (0.0-0.1) 01/25/22 18:30 Nucleated RBC % (auto) 0 % 01/25/22 18:30 Nucleated RBCs # 0.0 /100WBC 01/25/22 18:30 Sodium 137 mmol/L (136-145) 01/25/22 18:30 Potassium 5.4 mmol/L (3.5-5.1) H 01/25/22 18:30 Chloride 99 mmol/L (98-107) 01/25/22 18:30 Carbon Dioxide 27 mmol/L (22-29) 01/25/22 18:30 Anion Gap 16.4 (5-19) 01/25/22 18:30 BUN 11 mg/dL (6-20) 01/25/22 18:30 Creatinine 0.7 mg/dL (0.5-0.9) 01/25/22 18:30 GFR Calculation 92.2 mL/min (90-130) 01/25/22 18:30 Glucose 97 mg/dL (65-115) 01/25/22 18:30 Calculated Osmolality 283 mOsm/kg (285-295) L 01/25/22 18:30 Calcium 10.2 mg/dL (8.5-10.5) 01/25/22 18:30 Total Bilirubin 0.2 mg/dL (0.15-1.2) 01/25/22 18:30 AST 20 U/L (0-32) 01/25/22 18:30 ALT 17 U/L (0-33) 01/25/22 18:30 Alkaline Phosphatase 78 U/L (35-105) 01/25/22 18:30 Total Protein 7.4 g/dL (6.6-8.7) 01/25/22 18:30 Albumin 5.1 g/dL (3.5-5.2) 01/25/22 18:30 Globulin 2.3 g/dL (1.3-4.6) 01/25/22 18:30 Lipase 24 U/L (13-60) 01/25/22 18:30 HCG, Qual Negative (Negative) 01/25/22 18:30 Urine Color Yellow (Yellow) 01/25/22 20:02 Urine Appearance Hazy (CLEAR) A 01/25/22 20:02 Urine pH 5 (5-7) 01/25/22 20:02 Ur Specific [place] 1.025 (1.005-1.030) 01/25/22 20:02 Urine Protein Neg (Negative) 01/25/22 20:02 Urine Glucose (UA) Norm (Normal) 01/25/22 20:02 Urine Ketones 1+ (Negative) H 01/25/22 20:02 Urine Blood Neg (Negative) 01/25/22 20:02 Urine Nitrate Negative (Negative) 01/25/22 20:02 Urine Bilirubin Neg (Negative) 01/25/22 20:02 Urine Urobilinogen Norm mg/dL (Negative) 01/25/22 20:02 Ur Leukocyte Esterase 2+ (Negative) H 01/25/22 20:02 Urine RBC 0-4 /hpf (0-2) H 01/25/22 20:02 Urine WBC 40-55 /hpf (0-5) H 01/25/22 20:02 Ur Squamous Epith Cells 5-10 /hpf (0-5) H 01/25/22 20:02 Amorphous Sediment Not Reportable 01/25/22 20:02 Urine Bacteria 3+ /hpf (NONE) H 01/25/22 20:02 Discharge Plan Discharge Patient Disposition: Home Clinical Impression: Pyelonephritis, Constipation Condition: Stable Prescriptions: New cefdinir 300 mg capsule 300 mg PO BID 7 Days Qty: 14 0RF No Action (DME) Blood Glucose Test Strip See Rx Instructions .Route Qty: 50 3RF Rx Instructions: As directed (DME) blood-glucose meter Kit See Rx Instructions .Route Qty: 1 0RF Rx Instructions: As directed (DME) lancets [BD Ultra-Fine II Lancets] 30 gauge misc See Rx Instructions .Route Qty: 100 1RF Rx Instructions: As directed bupropion HCl [Wellbutrin XL] 300 mg tablet extended release 24 hr 300 mg PO QAM Qty: 30 3RF (DME) pen needle, diabetic 33 gauge x 5/32 needle See Rx Instructions .ROUTE .MEDSUPPLY Qty: 100 0RF Rx Instructions: daily Ozempic 0.25 mg or 0.5 mg(2 mg/1.5 mL) pen injector See Rx Instructions .ROUTE .COMPLEX Qty: 1.5 3RF Dose Instruction: inject 0.5mg ONCE weekly FOR FOUR weeks THEN increase TO 1mg every week Rx Instructions: inject 0.5mg ONCE weekly FOR FOUR weeks THEN increase TO 1mg every week on Discharge Orders: Discharge ED (Routine); Ordered 01/25/22 Ordered By: Aline Cruz Referrals: Paz Lanier MD [Primary Care Provider] - Coding Level of Care Code ED Green Chain Marker for Chg Fwd Exam Comprehensive
[2022-01-25 18:40] LABS: Basophils # 0.1 10^3/uL (0.0-0.1); Basophils % 0.7 %; Eosinophils # 0.1 10^3/uL (0.0-0.8); Eosinophils % 0.8 %; Hematocrit 43.2 % (37.0-47.0); Hemoglobin 13.6 g/dL (11.5-15.3); Lymphocytes # 2.6 10^3/uL (0.8-4.8); Lymphocytes % 25.9 %; Mean Corpuscular HGB Conc 31.5 g/dL (30.0-36.0); Mean Corpuscular Hemoglobin 27.9 pg (28.0-34.0); Mean Corpuscular Volume 88.7 fl (81-99); Mean Platelet Volume 10.7 fL (7.4-10.4); Monocytes # 0.3 10^3/uL (0.2-0.9); Monocytes % 3.4 %; Neutrophils # 6.81 10^3/uL (1.8-7.7); Neutrophils % 68.4 %; Nucleated Red Blood Cells % 0 %; Platelet Count 284 10^3/cmm (130-400); Red Blood Count 4.87 10^6/uL (4.1-5.3); Red Cell Distribution Width 13.1 % (12.1-15.1)
[2022-01-25 18:54] LABS: HCG, Serum Qual Negative (Negative)
[2022-01-25 19:06] LABS: Albumin Level 5.1 g/dL (3.5-5.2); Alkaline Phosphatase 78 U/L (35-105); Blood Urea Nitrogen 11 mg/dL (6-20); Calcium 10.2 mg/dL (8.5-10.5); Carbon Dioxide 27 mmol/L (22-29); Chloride 99 mmol/L (98-107); Globulin 2.3 g/dL (1.3-4.6); Glomerular Filtration Rate 92.2 mL/min (90-130); Glucose 97 mg/dL (65-115); Lipase 24 U/L (13-60); Osmolality Calculated 283 mOsm/kg (285-295); Sodium 137 mmol/L (136-145); Total Bilirubin 0.2 mg/dL (0.15-1.2); Total Protein 7.4 g/dL (6.6-8.7)
[2022-01-25 19:07] LABS: Alanine Aminotransferase 17 U/L (0-33); Anion Gap 16.4 (5-19); Aspartate Amino Transferase 20 U/L (0-32); Potassium 5.4 mmol/L (3.5-5.1)
[2022-01-25 20:38] LABS: Add Urine Microscopic? YES; Bilirubin Urine Neg (Negative); Blood Urine Neg (Negative); Glucose Urine UA Norm (Normal); Ketones Urine 1+ (Negative); Leukocyte Esterase Urine 2+ (Negative); Nitrate Urine Negative (Negative); Protein Urine Neg (Negative); Specific Gravity, Urine 1.025 (1.005-1.030); Urine Appearance Hazy (CLEAR); Urine Color Yellow (Yellow); Urobilinogen Urine Norm (Negative); pH Urine 5 (5-7)
[2022-01-25 20:40] LABS: RBC Urine 0-4 /hpf (0-2)
[2022-01-25 20:41] LABS: Bacteria Urine 3+ /hpf
[2022-01-25 20:42] LABS: Add Urine Culture? Yes; WBC Urine 40-55 /hpf (0-5)
[2022-01-25] MEDS: cefTRIAXone 1,000 MG in lidocaine 1% 2.1 ML 2.1 MG IM (21:54)
== END 2022-01-25 22:01 | disposition home or self-care (01) ==
PROVIDERS: Emergency Provider Physician Assistant; PCP Family Medicine
DX: N12 Tubulo-interstitial nephritis, not specified as acute or chronic (principal); K59.00 Constipation, unspecified; E11.9 Type 2 diabetes mellitus without complications
CPT/HCPCS: 80053; 81001; 83690; 84703; 85025; 87086; 87210; 87491; 87591; 93005; 96372; 99284; J0696

== ENCOUNTER → 2022-02-03 15:15 | Outpatient (BNVA) | payer MEDICAID, SELFPAY | PROVIDERS: PCP Family Medicine; Visit Provider Nurse Practitioner Women's Health | DX: Z12.4 Encounter for screening for malignant neoplasm of cervix (principal); N76.0 Acute vaginitis; N93.9 Abnormal uterine and vaginal bleeding, unspecified; N92.0 Excessive and frequent menstruation with regular cycle | CPT/HCPCS: 84443; 85025; 87624 ==

== ENCOUNTER → 2022-02-14 16:16 | Outpatient (BNVA) | payer MEDICAID, SELFPAY | PROVIDERS: PCP Family Medicine; Visit Provider Nurse Practitioner Women's Health | DX: R10.2 Pelvic and perineal pain (principal) | CPT/HCPCS: 76830; 81025 ==

== ENCOUNTER → 2022-03-01 14:11 | Outpatient (BNVA) | payer MEDICAID, SELFPAY | PROVIDERS: PCP Family Medicine; Visit Provider Nurse Practitioner Women's Health | DX: N93.9 Abnormal uterine and vaginal bleeding, unspecified (principal) | CPT/HCPCS: 81025; 88305 ==

== ENCOUNTER → 2022-03-20 14:38 | Outpatient (BNVA) | payer MEDICAID, SELFPAY | PROVIDERS: PCP Family Medicine; Visit Provider Family Medicine | DX: Z01.818 Encounter for other preprocedural examination (principal); E11.9 Type 2 diabetes mellitus without complications | CPT/HCPCS: 83036 ==

== ENCOUNTER 2023-02-06 12:52 | Observation (INO) | payer MEDICAID, SELFPAY ==
[2023-02-02 10:25] LABS: Basophils % 0.5 %; Eosinophils # 0.1 10^3/uL (0.0-0.8); Eosinophils % 1.3 %; Hematocrit 38.6 % (36-47); Lymphocytes # 2.2 10^3/uL (0.8-4.8); Lymphocytes % 29.4 %; Mean Corpuscular HGB Conc 32.9 g/dL (30-55); Mean Corpuscular Volume 88.1 fl (85-98); Mean Platelet Volume 10.8 fL (7.4-10.4); Monocytes # 0.3 10^3/uL (0.2-0.9); Monocytes % 4.2 %; Neutrophils # 4.75 10^3/uL (1.8-7.7); Neutrophils % 63.9 %; Nucleated Red Blood Cells % 0 %; Platelet Count 258 10^3/cmm (157-399); Red Blood Count 4.38 10^6/uL (3.85-5.65); Red Cell Distribution Width 12.9 % (12.1-15.1); White Blood Count 7.44 10^3/uL (3.29-11.43)
[2023-02-02 10:38] LABS: Alanine Aminotransferase 12 U/L (0-33); Albumin Level 4.6 g/dL (3.5-5.2); Alkaline Phosphatase 63 U/L (35-105); Anion Gap 12.9 (5-19); Aspartate Amino Transferase 12 U/L (0-32); Blood Urea Nitrogen 12 mg/dL (6-20); Calcium 9.2 mg/dL (8.5-10.5); Carbon Dioxide 27 mmol/L (22-29); Chloride 106 mmol/L (98-107); Creatinine Clr Calc Pharmacy 156.0703; Globulin 2.3 g/dL (1.3-4.6); Glomerular Filtration Rate 109.6 mL/min (90-130); Glucose 113 mg/dL (65-115); Osmolality Calculated 295 mOsm/kg (285-295); Potassium 3.9 mmol/L (3.5-5.1); Sodium 142 mmol/L (136-145); Total Bilirubin 0.2 mg/dL (0.15-1.2); Total Protein 6.9 g/dL (6.6-8.7)
[2023-02-02 11:18] LABS: Urine Appearance Hazy (CLEAR); Urine Color Yellow (Yellow)
[2023-02-02 11:19] LABS: Add Urine Culture? No; Add Urine Microscopic? YES; Bacteria Urine 1+ /hpf; Bilirubin Urine Neg (Negative); Blood Urine Neg (Negative); Calcium Oxalate Crystals Urine 0-4 /hpf; Glucose Urine UA Norm (Normal); Ketones Urine Negative (Negative); Leukocyte Esterase Urine Negative (Negative); Mucus Urine 4+ /hpf; Nitrate Urine Negative (Negative); Protein Urine Neg (Negative); RBC Urine 0-4 /hpf (0-2); Specific Gravity, Urine 1.025 (1.005-1.030); Urobilinogen Urine Norm (Negative); WBC Urine 0-4 /hpf (0-5); pH Urine 5 (5-7)
--- NOTE | 2023-02-02 16:13 | P.ANESASSM_ITS ---
Pre-Anesthetic Assessment Height/Weight: Height 1.68 m Weight 113.398 kg Operation Date: 02/06/23 07:00 Proposed Procedures p Total vaginal hysterectomy 19515, N93.9(Not Applicable) - Lex Dumont MD Familial anesthetic complications: none Was Beta Tayo taken within 24 hours: N/A Was Clonidine taken within 24 hours: N/A Social No alcohol and No tobacco Exam alert, oriented x 3, clear to auscultation bilaterally and regular rate & rhythm Airway Submandibular: within normal limits Cervical ROM: within normal limits Mallampati: Class II Dentition: chipped GI Gastroesophageal Reflux Disease Metabolic Diabetes Mellitus and Morbid Obesity [facility] Lower Back Pain Neuropsych Anxiety and Depression Anesthetic Plan ASA status: 2 Anesthesia: General Medications/Allergies Home Medications Medication Instructions Recorded Confirmed Last Taken Type pen needle, diabetic 33 gauge x #100 ea 06/28/20 01/29/23 Unknown Rx blood-glucose meter #1 ea 10/17/21 01/29/23 Unknown Rx baclofen 10 mg tablet 10 mg PO .qhs #30 tabs 10/31/22 02/02/23 Unknown Rx blood sugar diagnostic (Blood #50 ea 10/31/22 01/29/23 Unknown Rx Glucose Test strips) lancets 30 gauge (BD Ultra-Fine II #100 ea 10/31/22 01/29/23 Unknown Rx Lancets) escitalopram oxalate 10 mg tablet 10 mg PO DAILY #30 tabs 12/18/22 02/02/23 02/02/23 Rx (Lexapro) semaglutide 1 mg/dose (4 mg/3 mL) 1 mg (0.75 mL) SUBCUT .weekly #3 mL 12/18/22 02/02/23 01/29/23 Rx subcutaneous pen injector (Ozempic) bupropion HCl 300 mg 24 hr tablet, 300 mg PO QAM #30 tabs 12/19/22 02/02/23 02/02/23 Rx extended release (Wellbutrin XL) ibuprofen 800 mg tablet 800 mg PO TID #60 tabs 01/12/23 02/02/23 01/31/23 Rx Allergies Allergy/AdvReac Type Severity Reaction Status Date / Time ketorolac [From Toradol] Allergy Intermediate ADR-Shakine Verified 02/02/23 09:15 ss sulfamethoxazole Allergy Intermediate ALGY-Rash Verified 02/02/23 09:15 [From Bactrim] trimethoprim [From Bactrim] Allergy Intermediate ALGY-Rash Verified 02/02/23 09:15 [facility] Anesthesia Medical History Abnormal ECG Bipolar II disorder Diabetes type 2, uncontrolled Ectopic Lost left tube has right tube Generalized anxiety disorder GERD (gastroesophageal reflux disease) Morbid obesity due to excess calories No pertinent past medical history neghx: htn,thyroid,dvt/pe PCP: Dr. Lanier Personal history of traumatic brain injury Surgical History H/O unilateral salpingectomy Ruptured left ectopic . Performed by Dr. Deo Son at [facility] in [place], [place]. Hx of dilation and curettage (~09/14/17) Family History Mother Heart disease Diabetes Hypertension Thyroid disease Stroke Father Diabetes Colon cancer dx age 40 Denies family history of Ovarian cancer Hypercholesteremia Breast cancer Uterine cancer Social History Smoking and tobacco status: never smoked Substance/Drug Use: never Do you think of yourself as: Straight/Heterosexual Female Reproductive History Date of last menstrual period: 01/26/23 Data Anesthesia 02/02/23 09:38 02/02/23 09:38 Short CBC 02/02/23 Range/Units 09:38 WBC 7.44 (3.29-11.43) 10^3/uL Hgb 12.70 (11.27-16.99) g/dL Hct 38.6 (36-47) % MCV 88.1 (85-98) fl Plt Count 258 (157-399) 10^3/cmm Neut % (Auto) 63.9 % Neut # (Auto) 4.75 (1.8-7.7) 10^3/uL BMP 02/02/23 09:38 Sodium 142 Potassium 3.9 Chloride 106 Carbon Dioxide 27 BUN 12 Creatinine 0.6 Glucose 113 Calcium 9.2 Liver Function 02/02/23 Range/Units 09:38 Total Bilirubin 0.2 (0.15-1.2) mg/dL AST 12 (0-32) U/L ALT 12 (0-33) U/L Alkaline Phosphatase 63 (35-105) U/L Albumin 4.6 (3.5-5.2) g/dL Urine 02/02/23 Range/Units 09:38 Urine Color Yellow (Yellow) Urine Appearance Hazy A (CLEAR) Urine pH 5 (5-7) Ur Specific [place] 1.025 (1.005-1.030) Urine Protein Neg (Negative) Urine Glucose (UA) Norm (Normal) Urine Ketones Negative (Negative) Urine Nitrate Negative (Negative) Urine Bilirubin Neg (Negative) Ur Leukocyte Esterase Negative (Negative) Urine RBC 0-4 H (0-2) /hpf Urine WBC 0-4 H (0-5) /hpf Cardiac Studies: Echocardiogram 02/20/21 Sestamibi Stress Test (Cardiology) 02/21
[2023-02-06] VITALS (17 sets, daily range): BP systolic 85–123; BP diastolic 55–83; PULSE 70–94; RESP 16–18; TEMP 36.3–36.9; O2SAT 90–98
--- NOTE | 2023-02-06 08:56 | ANES.PAUD2 ---
Pre-Anesthetic Update Pre-Anesthetic Assessment: Date of Surgery/Procedure: 02/06/23 Preop Diagnosis: Abnormal uterine bleeding Proposed Procedure: Operation Date: 02/06/23 10:10 Proposed Procedures p Total vaginal hysterectomy 27567, N93.9(Not Applicable) - Lex Dumont MD Any changes to Pre-Anesthetic Assessment?: No Last Intake: Intake Last Liquid Date 02/05/23 Last Liquid Time 19:00 Last Solid Date 02/05/23 Last Solid Time 19:00 Vitals: Temperature 98.1 F 02/06/23 08:31 Pulse Rate 83 02/06/23 08:31 Pulse Rhythm Regular 02/06/23 08:40 Pulse Strength 3+ Normal 02/06/23 08:40 Respiratory Rate 16 02/06/23 08:31 Blood Pressure 117/83 02/06/23 08:31 Blood Pressure Tereza n 94 02/06/23 08:31 Pulse Oximetry 98 02/06/23 08:31 Oxygen Delivery Me thod Room Air 02/06/23 08:40 Exam: Pre-Anes Outpt Exam: alert, oriented x 3, clear to auscultation bilaterally and regular rate & rhythm Cardiac Studies: Echocardiogram 02/20/21 Sestamibi Stress Test (Cardiology) 02/21/21
[2023-02-06 09:18] LABS: Glucose Point of Care 103 mg/dL (70-110)
[2023-02-06] MEDS: sodium chloride 0.9% 500 ML IV (09:18)
[2023-02-06] MEDS: scopolamine 1.5 Patch 1 PATCH TRANSDERMA (09:19)
[2023-02-06] MEDS: sodium chloride 0.9% 1,000 ML 30 ML IV (09:47)
[2023-02-06 09:55] LABS: OR HCG Qualitative Urine Negative (Negative)
--- NOTE | 2023-02-06 10:13 | W.PM.OPSUD ---
Surgery/Procedure H&P Update DATE OF PROCEDURE: February 06, 2023 DATE H&P PERFORMED: 01/29/23 H&P UPDATE INFORMATION: I have reviewed H&P completed within last 30 days, I have examined patient prior to procedure and No changes to prior documentation PREOP DIAGNOSIS: Abnormal uterine bleeding PLANNED PROCEDURE: Operation Date: 02/06/23 10:10 Proposed Procedures p Total vaginal hysterectomy 42235, N93.9(Not Applicable) - Lex Dumont MD
[2023-02-06] MEDS: ceFOXitin 2,000 MG in sodium chloride 0.9% (plus) 50 ML 100 MG IV (10:21)
--- NOTE | 2023-02-06 12:16 | PM.OP ---
Operative Report Date of procedure: February 06, 2023 Pre-op diagnosis: Preop Diagnosis Abnormal uterine bleeding Post-op diagnosis: same Procedure done: Total vaginal hysterectomy Bilateral oophorectomy Right salpingectomy Specimens removed/disposition: Uterus Left the right ovary Right fallopian tube Surgeon: Lex Dumont MD Estimated blood loss (mL): 600 IV fluids (mL): 700 Urine output (mL): 100 Complications: Bleeding Procedure: After informed consent and risks, benefits, indications and alternatives reviewed with the patient was taken to the operating room. The patient was placed in dorsal lithotomy position prepped, and draped in the usual sterile fashion. The pre-procedure timeout verifying the correct patient, procedure, site and side, could not requirements was performed and acknowledge by the OR team. A Galdamez catheter was placed. A Bookwalter vaginal retractor was placed into the vagina in usual manner visualize the cervix. Cervix was grasped with a single tooth tenaculum and circumferentially infiltrated with [1% Xylocaine with epinephrine]. Then cervix was circumferentially incised with bovie and the bladder was dissected off the pubovesical cervical fascia anteriorly with a sponge stick and Metzenbaum scissors. The anterior peritoneal reflection was identified and the anterior cul-de-sac was entered sharply with Metzenbaum scissors. The same procedure was performed posteriorly and a posterior colpotomy was made through the posterior cul-de-sac space without difficulty and the posterior blade of the Bookwalter vaginal retractor was advanced posteriorly into the cul-de-sac. At this time, the left and right uterosacral ligaments were isolated and ligated with 0 Vicryl. The LigaSure device was placed over the uterosacral ligaments on either side and was then used in a serial fashion up through the cardinal ligaments bilaterally cross-clamped, cut, and sealed with the LigaSure device. Finally, the uterine arteries were cross-clamped, cut, sealed and ligated with the LigaSure device. Hemostasis was assured. The broad ligaments were then serially clamped, sealed and cut with the LigaSure device on both sides. Excellent hemostasis was visualized. Both cornua were clamped, sealed and cut with the LigaSure device. Then the pedicles were then suture ligated with excellent hemostasis. The uterus was excised and submitted for pathologic evaluation. No other abnormalities were noted in the pelvic cavity. Then the right side Infundibular ligament was identified. The ureter was confirmed along the pelvic side wall and peristalsis was noted. The Ligasure device was then used to clamp, sealed and transcepted at middistance, again being sure to be clear of the ureter and the fallopian tube and ovary were removed. The same process was then repeated on the left side however left fallopian tube was not identified and only the left ovary was removed. Good hemostasis was assure on both sides. The peritoneum was then closed in a pursestring fashion with 0 Vicryl suture. The vaginal cuff angles were closed with [id number] #0 Vicryl suture on both sides and transfixed with the ipsilateral cardinal and uterosacral ligaments. Bluedigo was given IV. The remainder of the vaginal cuff was closed with #0 Vicryl in a running locked fashion. At this time, instruments were removed from the vagina at hemostasis assured. Galdamez catheter was noted yielding clear blue urine. The patient was taken out of dorsal lithotomy position and awakened from the general anesthesia. The patient tolerated the procedure well and was taken to the PACU recovery room in a stable condition. Sponge, lap, needle and instruments counts were correct x3.
[2023-02-06] MEDS: HYDROmorphone 1 mg/mL INJ 1 mL 0.5 MG IVP (12:33)
[2023-02-06] MEDS: dextrose 5%-lactated ringers 1,000 ML 125 ML IV ×2 (13:31→22:07)
[2023-02-06] MEDS: HYDROcodone-acetaminophen 5-325 mg Tablet PO ×2 (16:08→22:06)
[2023-02-06] MEDS: baclofen 10 mg Tablet PO (20:52)
[2023-02-06] MEDS: docusate sodium 100 mg Capsule PO (20:52)
[2023-02-06] MEDS: simethicone 80 mg Chew PO (22:06)
[2023-02-07 05:08] VITALS: BP 103/64; PULSE 91; RESP 16; TEMP 36.9
[2023-02-07] MEDS: HYDROcodone-acetaminophen 5-325 mg Tablet PO (05:08)
[2023-02-07 05:51] LABS: Hematocrit 30.9 % (36-47); Mean Corpuscular HGB Conc 33.3 g/dL (30-55); Mean Corpuscular Hemoglobin 29.2 pg (27-33); Mean Corpuscular Volume 87.5 fl (85-98); Mean Platelet Volume 11.1 fL (7.4-10.4); Platelet Count 218 10^3/cmm (157-399); Red Blood Count 3.53 10^6/uL (3.85-5.65); Red Cell Distribution Width 12.9 % (12.1-15.1); White Blood Count 15.98 10^3/uL (3.29-11.43)
--- NOTE | 2023-02-07 07:26 | PM.OBGYDC ---
Discharge Providers KIER TENDER Date of Admission: 02/06/23 12:52 Date of Discharge: 02/07/23 Attending Provider at Admission: Lex Dumont MD Attending Provider at Discharge: Lex Dumont MD Primary Care Provider: Paz Lanier MD Reason for Visit Reason for Visit: N93.9 Hospital Course Hospital Course Mrs. Curiel 42-year-old female with abnormal uterine bleeding unresponsive to medical management and uterine fibroid was admitted for planned total vaginal hysterectomy. The total vaginal hysterectomy with bilateral salpingo-oophorectomy was performed without complications. Overnight observation was uneventful. She is afebrile hemodynamically stable postoperative day 1. Tolerating diet well. Ambulating without difficulty. Was counseled regarding pelvic rest for 6 weeks (no sex, no tampons, no vaginal douches). Return to the emergency room if any fever, increased bleeding or pain. Physical Exam Narrative: GA: Alert and oriented ?3. HEENT: WNL. Heart: Regular rate and rhythm. Lungs: Clear to auscultation bilaterally. Abdomen: Bowel sounds present, nontender. 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 Extremities: No edema, no cyanosis, no calves pain. Urinary Catheter Management: Galdamez: Cath Placed During This Visit: yes, but has since been removed by the nurse Reason for Continuing Indwelling Catheter: Decision to DC Catheter Urinary Catheter Date of Insertion: 02/06/23 Urinary Catheter Time of Insertion: 10:42 Date Urinary Catheter Removed: 02/07/23 Time Urinary Catheter Discontinued: 06:00 History History History 7 Term 3 0 Miscarriages/Ectopic 4 Living Children 3 Discharge Data Studies Completed and Pending Pending at discharge Category Date Time Status Pathology: Surgical [PTH] Routine Pth 02/06/23 12:27 Received Laboratory Results WBC 15.98 10^3/uL (3.29-11.43) H 02/07/23 05:30 RBC 3.53 10^6/uL (3.85-5.65) L 02/07/23 05:30 Hgb 10.30 g/dL (11.27-16.99) L 02/07/23 05:30 Hct 30.9 % (36-47) L 02/07/23 05:30 MCV 87.5 fl (85-98) 02/07/23 05:30 MCH 29.2 pg (27-33) 02/07/23 05:30 MCHC 33.3 g/dL (30-55) 02/07/23 05:30 RDW 12.9 % (12.1-15.1) 02/07/23 05:30 Plt Count 218 10^3/cmm (157-399) 02/07/23 05:30 MPV 11.1 fL (7.4-10.4) H 02/07/23 05:30 Neut % (Auto) 63.9 % 02/02/23 09:38 Lymph % (Auto) 29.4 % 02/02/23 09:38 [place] % (Auto) 4.2 % 02/02/23 09:38 Eos % (Auto) 1.3 % 02/02/23 09:38 Baso % (Auto) 0.5 % 02/02/23 09:38 Neut # (Auto) 4.75 10^3/uL (1.8-7.7) 02/02/23 09:38 Lymph # (Auto) 2.2 10^3/uL (0.8-4.8) 02/02/23 09:38 [place] # (Auto) 0.3 10^3/uL (0.2-0.9) 02/02/23 09:38 Eos # (Auto) 0.1 10^3/uL (0.0-0.8) 02/02/23 09:38 Baso # (Auto) 0.0 10^3/uL (0.0-0.1) 02/02/23 09:38 Nucleated RBC % (auto) 0 % 02/02/23 09:38 Nucleated RBCs # 0.0 /100WBC 02/02/23 09:38 Sodium 142 mmol/L (136-145) 02/02/23 09:38 Potassium 3.9 mmol/L (3.5-5.1) 02/02/23 09:38 Chloride 106 mmol/L (98-107) 02/02/23 09:38 Carbon Dioxide 27 mmol/L (22-29) 02/02/23 09:38 Anion Gap 12.9 (5-19) 02/02/23 09:38 BUN 12 mg/dL (6-20) 02/02/23 09:38 Creatinine 0.6 mg/dL (0.5-0.9) 02/02/23 09:38 GFR Calculation 109.6 mL/min (90-130) 02/02/23 09:38 Glucose 113 mg/dL (65-115) 02/02/23 09:38 POC Glucose 103 mg/dL (70-110) 02/06/23 09:14 Calculated Osmolality 295 mOsm/kg (285-295) 02/02/23 09:38 Calcium 9.2 mg/dL (8.5-10.5) 02/02/23 09:38 Total Bilirubin 0.2 mg/dL (0.15-1.2) 02/02/23 09:38 AST 12 U/L (0-32) 02/02/23 09:38 ALT 12 U/L (0-33) 02/02/23 09:38 Alkaline Phosphatase 63 U/L (35-105) 02/02/23 09:38 Total Protein 6.9 g/dL (6.6-8.7) 02/02/23 09:38 Albumin 4.6 g/dL (3.5-5.2) 02/02/23 09:38 Globulin 2.3 g/dL (1.3-4.6) 02/02/23 09:38 Urine Color Yellow (Yellow) 02/02/23 09:38 Urine Appearance Hazy (CLEAR) A 02/02/23 09:38 Urine pH 5 (5-7) 02/02/23 09:38 Ur Specific [place] 1.025 (1.005-1.030) 02/02/23 09:38 Urine Protein Neg (Negative) 02/02/23 09:38 Urine Glucose (UA) Norm (Normal) 02/02/23 09:38 Urine Ketones Negative (Negative) 02/02/23 09:38 Urine Blood Neg (Negative) 02/02/23 09:38 Urine Nitrate Negative (Negative) 02/02/23 09:38 Urine Bilirubin Neg (Negative) 02/02/23 09:38 Urine Urobilinogen Norm mg/dL (Negative) 02/02/23 09:38 Ur Leukocyte Esterase Negative (Negative) 02/02/23 09:38 Urine RBC 0-4 /hpf (0-2) H 02/02/23 09:38 Urine WBC 0-4 /hpf (0-5) H 02/02/23 09:38 Ur Squamous Epith Cells 5-10 /hpf (0-5) H 02/02/23 09:38 Calcium Oxalate Crystal 0-4 /hpf H 02/02/23 09:38 Amorphous Sediment Not Reportable 02/02/23 09:38 Urine Bacteria 1+ /hpf (NONE) H 02/02/23 09:38 Urine Mucus 4+ /hpf 02/02/23 09:38 Urine HCG, Qual Negative (Negative) 02/06/23 09:50 Blood Type O Positive 02/06/23 08:55 Rho(D) Type Positive 02/06/23 08:55 Antibody Screen Negative 02/06/23 08:55 Vitals Last Vital Signs Temp 98.4 F 02/07/23 05:08 Pulse 91 02/07/23 05:08 Resp 16 02/07/23 05:08 BP 103/64 02/07/23 05:08 Pulse Ox 94 02/06/23 18:05 O2 Del Method Room Air 02/07/23 05:08 O2 Flow Rate 2 02/06/23 12:57 Discharge Plan Discharge Patient Disposition: Home Condition: Stable Prescriptions: New hydrocodone-acetaminophen 5-325 mg tablet 1 tab PO Q4H PRN (Reason: pain) Qty: 20 0RF docusate sodium [Colace] 100 mg capsule 100 mg PO BID Qty: 60 0RF acetaminophen 325 mg capsule 325 mg PO Q4H PRN (Reason: fever or pain) Qty: 60 0RF ferrous sulfate [Iron (ferrous sulfate)] 325 mg (65 mg iron) tablet 325 mg PO BID Qty: 60 0RF ibuprofen 800 mg tablet 800 mg PO TID PRN (Reason: pain) Qty: 60 0RF estradiol 0.5 mg tablet 0.5 mg PO DAILY Qty: 30 0RF Continued (DME) blood-glucose meter Kit See Rx Instructions .Route Qty: 1 0RF Rx Instructions: As directed (DME) lancets [BD Ultra-Fine II Lancets] 30 gauge misc See Rx Instructions .Route Qty: 100 1RF Rx Instructions: As directed baclofen 10 mg tablet 10 mg PO .qhs Qty: 30 0RF (DME) Blood Glucose Test Strip See Rx Instructions .Route Qty: 50 3RF Rx Instructions: As directed escitalopram oxalate [Lexapro] 10 mg tablet 10 mg PO DAILY Qty: 30 0RF Ozempic 1 mg/dose (4 mg/3 mL) pen injector 1 mg SUBCUT .weekly Qty: 3 3RF (DME) pen needle, diabetic 33 gauge x 5/32 needle See Rx Instructions .ROUTE .MEDSUPPLY Qty: 100 0RF Rx Instructions: daily bupropion HCl [Wellbutrin XL] 300 mg tablet extended release 24 hr 300 mg PO QAM Qty: 30 3RF ibuprofen 800 mg tablet 800 mg PO TID Qty: 60 1RF Discharge Orders: Discharge Order (Routine); Ordered 02/07/23 Ordered By: Lex Dumont Discharge Diet: Usual diet Discharge Activity: Limit activity as instructed Patient Instructions: Opioid Safety, Vaginal Hysterectomy (GEN), Hysterectomy (GEN), Menopause (GEN) Activity Restrictions/Additional Instructions: 1. Please call [facility] on next working day to make your post-operative appointment in 2 weeks. 2. Please stay home until you come back to the clinic on first post-hospatilization check up. 3. Please follow instructions on your medications CAREFULLY. 4. If you have abdominal incision, do not cover it unless dressing is necessary because of drainage. OK to shower, but avoid bath. Leave steri-strips until they fall off. If they are still on one week after surgery, you may remove them. 5. If you had vaginal surgery or vaginal repair, Dr. Dumont may instruct you to take SITZ bath. 6. Yellow, blood tinged odorous vaginal discharge is usually normal after hysterectomy or vaginal surgeries. 7. No SEXUAL INTERCOURSE, tampons, or douches until you are completely released from the post-operative care. 8. Avoid constipation by eating right and maybe using some Metamucil or Milk of Magnesia. 9. All prescription refills are given during the working hours. Please do no wait till it runs out. Call the clinic at [phone] before your medication runs out. The clinic will get in touch with your doctor to prescribe medications if necessary. 10. Please remain within 40 mile radius from our hospital because emergencies do happen now and then during the post-operative period. 11. If you have stairs at home, take one step at a time slowly and minimize the number of trips. It helps to stay in one floor for the next few days. No lifting except what you can lift by one hand until you are released from the post-operative care. 12. Driving is discouraged until you are well healed. It may be 3-4 weeks before you feel strong enough to drive. You should be able to turn and look through the rear window without pain and you should be able to push the brake pedal very hard without pain before you drive. No fast rules, but SAFETY should be your primary concern. DO NOT drive if you are on sedating medications such as narcotics. 13. Call the clinic (during working hours) to make urgent appointment or go to the Emergency room, if any of the following occurs: i. Vaginal bleeding becomes heavy, more than a period. ii. Incision becomes red and sore, or drains pus. iii. Your TEMPERATURE is over 100.4F or you have chill. iv. IV site becomes red and swollen (a little ``knot?? is usually OK) v. Persistent nausea and vomiting vi. Persistent constipation or diarrhea vii. Rash or allergic reaction to medications. Discharge Attestations KIER TENDER Time Spent in Discharge Care*: greater than 30 min Coding Level of Care Code Acute Code for Chg Fwd Diagnoses
[2023-02-07] MEDS: ibuprofen 800 mg tablet PO (08:54)
[2023-02-07] MEDS: docusate sodium 100 mg Capsule PO (08:54)
[2023-02-07 08:55] VITALS: BP 118/74; PULSE 87; RESP 16; TEMP 36.4; O2SAT 98
== END 2023-02-07 08:58 | disposition home or self-care (01) ==
LOC: OBGYN 12:53
PROVIDERS: Admitting Provider Obstetrics & Gynecology; PCP Family Medicine; Visit Provider Obstetrics & Gynecology
PROC: (CPT 58291; principal; 2023-02-06 10:00)
PROC: (CPT 58720; 2023-02-06 10:00)
DX: N93.9 Abnormal uterine and vaginal bleeding, unspecified (principal); D25.9 Leiomyoma of uterus, unspecified; K21.9 Gastro-esophageal reflux disease without esophagitis; E11.9 Type 2 diabetes mellitus without complications; E66.01 Morbid (severe) obesity due to excess calories; Z68.41 Body mass index [BMI] 40.0-44.9, adult; F41.1 Generalized anxiety disorder
CPT/HCPCS: 58291; 36415; 36416; 80053; 81001; 81025; 82962; 84703; 85025; 85027; 86850; 86900; 88307; G0378; J0694; J1100; J1170; J1200; J2250; J2405; J2704; J2710; J3010; J3490; J7030; J7040; J7121

== ENCOUNTER → 2023-02-20 15:48 | Outpatient (BNVA) | payer MEDICAID, SELFPAY | PROVIDERS: PCP Family Medicine; Visit Provider Nurse Practitioner Women's Health | DX: R35.0 Frequency of micturition (principal); N76.0 Acute vaginitis; Z48.816 Encounter for surgical aftercare following surgery on the genitourinary system | CPT/HCPCS: 81000 ==

== ENCOUNTER → 2023-03-16 10:50 | Outpatient (BNVA) | payer MEDICAID, SELFPAY | PROVIDERS: PCP Family Medicine; Visit Provider Family Medicine | DX: E11.9 Type 2 diabetes mellitus without complications (principal); G47.00 Insomnia, unspecified; B35.1 Tinea unguium; F32.A Depression, unspecified | CPT/HCPCS: 80053; 80061; 83036; 84443; 85025 ==

== ENCOUNTER 2023-06-15 14:24 | Emergency (ER) | payer MEDICAID, SELFPAY ==
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
[2023-06-15 14:56] LABS: Basophils # 0.1 10^3/uL (0.0-0.1); Basophils % 0.4 %; Eosinophils % 0.2 %; Hematocrit 39.7 % (36-47); Lymphocytes # 2.5 10^3/uL (0.8-4.8); Lymphocytes % 10.8 %; Mean Corpuscular Hemoglobin 29.2 pg (27-33); Mean Corpuscular Volume 88.4 fl (85-98); Mean Platelet Volume 10.8 fL (7.4-10.4); Monocytes # 0.7 10^3/uL (0.2-0.9); Monocytes % 3.1 %; Neutrophils # 19.39 10^3/uL (1.8-7.7); Neutrophils % 84.2 %; Nucleated Red Blood Cells % 0 %; Platelet Count 287 10^3/cmm (157-399); Red Blood Count 4.49 10^6/uL (3.85-5.65); Red Cell Distribution Width 12.9 % (12.1-15.1); White Blood Count 23.03 10^3/uL (3.29-11.43)
[2023-06-15 15:07] VITALS: RESP 21
[2023-06-15] MEDS: morphine 4 mg/mL SDV 1 mL IVP (15:07)
[2023-06-15] MEDS: ondansetron 2 mg/ML SDV 2 mL 4 MG IVP (15:07)
[2023-06-15 15:10] VITALS: BP 120/70; PULSE 88; O2SAT 93
[2023-06-15 15:12] LABS: INR 1.09 (0.8-1.2)
[2023-06-15] MEDS: lidocaine 1% INJ 10 mL (per mL) 20 ML INTRADERMA (15:15)
[2023-06-15 15:17] LABS: Alanine Aminotransferase 546 U/L (0-33); Albumin Level 4.4 g/dL (3.5-5.2); Alkaline Phosphatase 69 U/L (35-105); Blood Urea Nitrogen 14 mg/dL (6-20); Calcium 9.6 mg/dL (8.5-10.5); Carbon Dioxide 26 mmol/L (22-29); Chloride 100 mmol/L (98-107); Globulin 2.9 g/dL (1.3-4.6); Glomerular Filtration Rate 68.7 mL/min (90-130); Glucose 234 mg/dL (65-115); Osmolality Calculated 294 mOsm/kg (285-295); Sodium 138 mmol/L (136-145); Total Bilirubin 0.4 mg/dL (0.15-1.2); Total Protein 7.3 g/dL (6.6-8.7)
[2023-06-15] MEDS: iohexol 350 mg/mL 500 mL Btl (per mL) IV (15:26)
[2023-06-15 15:29] LABS: Aspartate Amino Transferase 1167 U/L (0-32)
[2023-06-15 15:39] VITALS: BP 117/70; PULSE 87; RESP 29; O2SAT 94
[2023-06-15 16:15] VITALS: BP 110/74
[2023-06-15] MEDS: lactated ringers 1,000 ML 999 ML IV ×2 (16:27→16:31)
== END 2023-06-15 16:47 ==
PROVIDERS: Emergency Provider Internal Medicine; PCP Family Medicine
DX: S22.43XA Multiple fractures of ribs, bilateral, initial encounter for closed fracture (principal); S25.09XA Other specified injury of thoracic aorta, initial encounter; S27.2XXA Traumatic hemopneumothorax, initial encounter; S32.492A Other specified fracture of left acetabulum, initial encounter for closed fracture; S73.015A Posterior dislocation of left hip, initial encounter; S62.342A Nondisplaced fracture of base of third metacarpal bone, right hand, initial encounter for closed fracture; S72.432A Displaced fracture of medial condyle of left femur, initial encounter for closed fracture; S22.20XA Unspecified fracture of sternum, initial encounter for closed fracture; S20.219A Contusion of unspecified front wall of thorax, initial encounter; S81.012A Laceration without foreign body, left knee, initial encounter; E11.9 Type 2 diabetes mellitus without complications; V59.40XA Driver of pick-up truck or van injured in collision with unspecified motor vehicles in traffic accident, initial encounter; S61.411A Laceration without foreign body of right hand, initial encounter
CPT/HCPCS: 12002; 70450; 71260; 72125; 73130; 73552; 73562; 73610; 74177; 80053; 85025; 85610; 96374; 96375; 99285; J2270; J2405; J7120; Q9967

== ENCOUNTER → 2023-08-31 11:45 | Outpatient (BNVA) | payer MEDICAID, SELFPAY | PROVIDERS: PCP Family Medicine; Visit Provider Family Medicine | DX: M79.641 Pain in right hand; M25.511 Pain in right shoulder | CPT/HCPCS: 73030; 73130 ==

== ENCOUNTER → 2023-10-24 15:31 | Outpatient (BNVA) | payer MEDICAID, SELFPAY | PROVIDERS: PCP Family Medicine; Visit Provider Family Medicine | DX: E11.9 Type 2 diabetes mellitus without complications (principal) | CPT/HCPCS: 83036 ==

== ENCOUNTER → 2023-11-12 15:07 | Outpatient (BNVA) | payer MEDICAID, SELFPAY | PROVIDERS: PCP Family Medicine; Visit Provider Family Medicine | DX: R30.0 Dysuria | CPT/HCPCS: 81000 ==

== ENCOUNTER 2023-11-26 10:27 | Outpatient (RCR) | payer MEDICAID, SELFPAY | END 2023-12-09 23:59 | disposition home or self-care (01) | LOC: SPT 10:27 | PROVIDERS: Absent Provider Orthopaedic Surgery; PCP Family Medicine; Visit Provider Family Medicine | DX: M54.50 Low back pain, unspecified (principal); G89.29 Other chronic pain | CPT/HCPCS: 97110; 97112; 97161 ==

== ENCOUNTER 2023-12-24 11:44 | Outpatient (RCR) | payer MEDICAID, SELFPAY | END 2024-01-09 23:59 | disposition home or self-care (01) | LOC: SPT 11:44 | PROVIDERS: PCP Family Medicine; Visit Provider Family Medicine | DX: M54.50 Low back pain, unspecified (principal); G89.29 Other chronic pain | CPT/HCPCS: 97110; 97112; 97116; 97530 ==

== ENCOUNTER 2024-01-10 06:00 | Outpatient (RCR) | payer MEDICAID, SELFPAY | END 2024-02-09 23:59 | disposition home or self-care (01) | LOC: SPT 06:00 | PROVIDERS: PCP Family Medicine; Visit Provider Family Medicine | DX: M54.50 Low back pain, unspecified (principal); G89.29 Other chronic pain | CPT/HCPCS: 97110; 97116; 97140; 97530 ==

== ENCOUNTER 2024-02-10 06:00 | Outpatient (RCR) | payer MEDICAID, SELFPAY | END 2024-03-10 23:59 | disposition home or self-care (01) | LOC: SPT 06:00 | PROVIDERS: PCP Family Medicine; Visit Provider Family Medicine | DX: M54.50 Low back pain, unspecified (principal); G89.29 Other chronic pain | CPT/HCPCS: 97110; 97164 ==

== ENCOUNTER 2024-03-11 06:00 | Outpatient (RCR) | payer MEDICAID, SELFPAY | END 2024-04-10 23:59 | disposition home or self-care (01) | LOC: SPT 06:00 | PROVIDERS: PCP Family Medicine; Visit Provider Family Medicine | DX: M54.50 Low back pain, unspecified (principal); G89.29 Other chronic pain | CPT/HCPCS: 97110; 97116; 97530 ==

== ENCOUNTER 2024-07-09 16:00 | Emergency (ER) | payer MEDICAID, SELFPAY ==
[2024-07-09 16:04] VITALS: BP 108/74; PULSE 80; RESP 16; TEMP 36.7; O2SAT 98; BMI 35.5
--- NOTE | 2024-07-09 16:40 | W.ED.URI ---
HPI - URI/Sore Throat General: Chief Complaint: Upper Respiratory Infection Stated Complaint: sick Time Seen by Provider: 07/09/24 16:14 Source: patient Mode of arrival: ambulatory Limitations: no limitations History of Present Illness: 43-year-old female who states she has had flulike symptoms last 3 days she has been having cough body aches with feeling weak and tired. Patient is here with her daughter who tested positive for flu a 2 days ago. She has been a very close contact her daughter denies any vomiting denies any diarrhea Associated symptoms: Reports chills and fever(s); Deny abdominal pain, chest pain, diarrhea, headache(s), nausea or vomiting Related Data Home Medications Medication Instructions Recorded Confirmed docusate sodium 100 mg capsule 100 mg PO BID PRN Constipation 12/11/23 07/09/24 (Colace) pantoprazole 40 mg tablet,delayed 40 mg PO DAILY PRN Acid Reflux 07/09/24 07/09/24 release pseudoephedrine-ibuprofen 30 1 tab PO Q4H PRN Congestion 07/09/24 07/09/24 mg-200 mg tablet Previous Rx's Medication Instructions Recorded pen needle, diabetic 33 gauge x #100 ea 06/28/20 blood-glucose meter #1 ea 10/17/21 blood sugar diagnostic (Blood #50 ea 10/31/22 Glucose Test strips) lancets 30 gauge (BD Ultra-Fine II #100 ea 10/31/22 Lancets) acetaminophen 325 mg capsule 325 mg PO Q4H PRN fever or pain 02/07/23 #60 caps aripiprazole 20 mg tablet (Abilify) 20 mg PO DAILY #30 tabs 01/28/24 diazepam 5 mg tablet (Valium) 5 mg PO BID PRN anxiety #30 tabs 01/28/24 semaglutide 2 mg/dose (8 mg/3 mL) 2 mg (0.75 mL) SUBCUT .weekly #3 mL 01/28/24 subcutaneous pen injector bupropion HCl 300 mg 24 hr tablet, 300 mg PO QAM #30 tabs 03/04/24 extended release (Wellbutrin XL) Allergies Allergy/AdvReac Type Severity Reaction Status Date / Time ketorolac [From Toradol] Allergy Intermediate ADR-Shakine Verified 07/09/24 16:11 ss sulfamethoxazole Allergy Intermediate ALGY-Rash Verified 07/09/24 16:11 [From Bactrim] trimethoprim [From Bactrim] Allergy Intermediate ALGY-Rash Verified 07/09/24 16:11 Review of Systems Const: Reports: fever(s) and chills; Denies: body aches or change in appetite ENMT: Reports: throat pain; Denies: dental pain Card: Denies: chest pain Resp: Reports: dyspnea GI: Denies: abdominal pain, nausea, vomiting or diarrhea Skin/Breast: Denies: rash Neuro: Denies: headache(s) PFSH ED PFSH: Medical History Acetabular fracture No pertinent past medical history neghx: htn,thyroid,dvt/pe PCP: Dr. Lanier Abnormal ECG Bipolar II disorder Personal history of traumatic brain injury Generalized anxiety disorder GERD (gastroesophageal reflux disease) Diabetes type 2, uncontrolled Morbid obesity due to excess calories Ectopic Lost left tube has right tube Surgical History H/O heart artery stent (~06/2023) History of hysterectomy TVH, right salpingectomy, bilateral oophorectomy performed by Tim at [facility] for AUB. H/O unilateral salpingectomy Ruptured left ectopic . Performed by Dr. Deo Son at [facility] in [place], [place]. Hx of dilation and curettage (~09/14/17) Family History Mother Heart disease Diabetes Hypertension Thyroid disease Stroke Father Diabetes Colon cancer dx age 40 Denies family history of Ovarian cancer Hypercholesteremia Breast cancer Uterine cancer Social History Smoking and tobacco/nicotine status: never used tobacco/nicotine Physical Exam Const: COMMON NORMALS: no acute distress, patient oriented x3 and healthy appearing HENMT: COMMON NORMALS: normocephalic and atraumatic HEAD & SCALP: normocephalic and atraumatic Eye: COMMON NORMALS: Equal, round and reactive pupils present and EOMs intact bilaterally PUPIL: Yes Equal, round and reactive pupils present Neck/C-Spine: COMMON NORMALS: full ROM and supple Chest: COMMONS NORMALS: normal inspection of the chest Resp: COMMON NORMALS: normal respiratory effort, No use of accessory muscles and clear to auscultation bilaterally AUSCULTATION: clear to auscultation bilaterally Cardio: COMMON NORMALS: regular rate, regular rhythm and No murmurs present (Cardio) RATE: regular rate RHYTHM: regular rhythm Extremity: COMMON NORMALS: normal to inspection and full ROM Neuro: COMMON NORMALS: patient oriented x3, moves all extremities and no focal motor deficits Psych: COMMON NORMALS: mental status grossly normal, Normal thought process present and cooperative THOUGHT PROCESS: Normal thought process present Skin: COMMON NORMALS: no rashes or lesions noted and no wounds GENERAL SKIN EXAM: no rashes or lesions noted Course Vital Signs: Vital signs: Vital Signs Temperature 98.0 F 07/09/24 16:04 Pulse Rate 80 07/09/24 16:04 Respiratory Rate 16 07/09/24 16:04 Blood Pressure 108/74 07/09/24 16:04 Pulse Oximetry 98 07/09/24 16:04 Oxygen Delivery Me thod Room Air 07/09/24 16:04 MDM - URI/Sore Throat Medical Decision Making Patient presents here with cough congestion she has been around her daughter who has flu a patient likely has flu a did swab her still pending her symptoms been going on for 4 days and does not change the plan she is in no severe distress not hypoxic she stable for discharge. Medical Records I reviewed the patient's medical records. No radiology studies performed this visit Discharge Plan Discharge Patient Disposition: Home Clinical Impression: Upper respiratory infection Condition: Stable Prescriptions: No Action (DME) blood-glucose meter Kit See Rx Instructions .Route Qty: 1 0RF Rx Instructions: As directed (DME) lancets [BD Ultra-Fine II Lancets] 30 gauge misc See Rx Instructions .Route Qty: 100 1RF Rx Instructions: As directed (DME) Blood Glucose Test Strip See Rx Instructions .Route Qty: 50 3RF Rx Instructions: As directed Colace 100 mg capsule 100 mg PO BID PRN (Reason: Constipation) diazepam [Valium] 5 mg tablet 5 mg PO BID PRN (Reason: anxiety) Qty: 30 3RF aripiprazole [Abilify] 20 mg tablet 20 mg PO DAILY Qty: 30 4RF semaglutide 2 mg/dose (8 mg/3 mL) pen injector 2 mg SUBCUT .weekly Qty: 3 3RF Rx Instructions: Sunday (DME) pen needle, diabetic 33 gauge x needle See Rx Instructions .ROUTE .MEDSUPPLY Qty: 100 0RF Rx Instructions: daily bupropion HCl [Wellbutrin XL] 300 mg tablet extended release 24 hr 300 mg PO QAM Qty: 30 3RF DayQuil Sinus Pressure/Pain 30-200 mg Tablet 1 tab PO Q4H PRN (Reason: Congestion) pantoprazole 40 mg tablet,delayed release (DR/EC) 40 mg PO DAILY PRN (Reason: Acid Reflux) acetaminophen 325 mg capsule 325 mg PO Q4H PRN (Reason: fever or pain) Qty: 60 0RF Discharge Orders: Discharge ED (Routine); Ordered 07/09/24 Ordered By: Kevyn Johansen Referrals: Paz Lanier MD [Primary Care Provider] - 4-7 days Discharge Diet: Advance as tolerated Discharge Activity: Resume usual activity Patient Instructions: Upper Respiratory Infection (ED) Coding Level of Care Code ED Manager Operations for Winifred Garcia
[2024-07-09 17:23] VITALS: BP 125/89; PULSE 88; RESP 16; O2SAT 98
[2024-07-09 18:18] LABS: Covid PCR NEGATIVE (Negative); Influenza A POSITIVE (Negative); Influenza B NEGATIVE (Negative); Respiratory Syncytial Virus Ce NEGATIVE (Negative)
== END 2024-07-09 17:24 | disposition home or self-care (01) ==
PROVIDERS: Emergency Provider Emergency Medicine; PCP Family Medicine
DX: J06.9 Acute upper respiratory infection, unspecified (principal); E11.9 Type 2 diabetes mellitus without complications
CPT/HCPCS: 87637; 99283

== ENCOUNTER → 2025-05-13 11:48 | Outpatient (BNVA) | payer MEDICAID, SELFPAY | PROVIDERS: Visit Provider Nurse Practitioner Women's Health | DX: R68.82 Decreased libido (principal) | CPT/HCPCS: 84270; 84402; 84403 ==